=== PATIENT | female | born 1950 | race Caucasian/White ===

== ENCOUNTER 2024-02-26 11:46 | Inpatient (IN) ==
--- NOTE | 2024-02-26 12:03 | Emergency Department Note ---
Impression & Plan Acute UTI, Metabolic encephalopathy, Dehydration ED Provider Note NAME: TAMIKA CARRASCO AGE: 74 SEX: F : 1950 ARRIVES VIA: Ambulance INFORMANT: Patient ED PROVIDER(S): Gurwinder Hebert MD CHIEF COMPLAINT: Confusion, generalized weakness, referred. PLAN: Disposition: Admit MEDICAL DECISION MAKING: The patient is a pleasant 74-year-old woman with a past medical history who presents to the emergency department via EMS referred by her primary care doctor's office for evaluation of generalized weakness/malaise where they felt she was slow to answer questions and occurs in the setting of the patient presenting there today for an appointment to assess lower abdominal pain and burning with urination where she feels she may have a UTI. Patient does admit that she feels it is difficult for to process/think. Has any cough, congestion, chest pain, shortness of breath. On evaluation the patient is fatigued appearing but no distress, afebrile with blood pressure 190s/90s and vital signs otherwise stable. She appears clinically dry. She exhibits slow processing with no overt aphasia. She is alert and oriented to self, place and situation. She has no focal extremity weakness. EKG without overt acute ischemia. CXR negative for acute cardiopulmonary process per my personal preliminary review/interpretation. WBC, H/H and platelets within normal limits. Chemistry without metabolic acidosis. Creatinine 1.2 consistent with the patient's clinical dry appearance. Electrolytes LFTs are unremarkable. High-sensitivity troponin 7.1, within normal notes. Lipase is within normal limits. TSH within limits. UA with positive nitrites and 4+ bacteria consistent with UTI. COVID-19, influenza and RSV PCR's are negative. CT of the head and CTA of the head and neck were performed were negative for ICH, ischemia or severe narrowing occlusion of large vessels. Treatment for UTI initiated with ceftriaxone. Given the patient's change in mental status as well as ambulatory dysfunction per nursing went to the bathroom related to her UTI patient was referred to hospitalist service for further management. Case was discussed with Clover Gusman PAC with [facility] Cabrera hospitalist, who will evaluate the patient for admission. Further management per admitting team. Triage Nursing notes reviewed and agree them. Prior/external medical records reviewed Vital Signs: reviewed Differential diagnosis: Infection, dehydration, metabolic abnormality, hypo/hyperglycemia, electrolyte disturbance, anemia, hypoxia, cardiac sources, intracerebral event, toxicologic, neurologic, as well as other pathologies. ER treatment provided: See below. Diagnostics interpreted by me: Cardiac Monitoring: An order for continuous cardiac monitoring was placed and demonstrated normal sinus rhythm, 64 bpm, no ectopy. Laboratory studies: See below Imaging studies: See below Consultation(s): Case was discussed with lCover Gusman PAC with Dr. Jesus, [facility] hospitalist, who will evaluate the patient for admission. HPI: The patient is a pleasant 74-year-old woman with a past medical history who presents to the emergency department via EMS referred by her primary care doctor's office for evaluation of generalized weakness/malaise where they felt she was slow to answer questions and occurs in the setting of the patient presenting there today for an appointment to assess lower abdominal pain and burning with urination where she feels she may have a UTI. Patient does admit that she feels it is difficult for to process/think. Has any cough, congestion, chest pain, shortness of breath. ROS: See above HPI for pertinent positives & negatives. A total of 10 systems reviewed and were otherwise negative. VITALS:See Below PHYSICAL EXAMINATION: GENERAL: Awake, alert, fatigued-appearing, in no distress HENT: Normocephalic, atraumatic. Oropharynx with dry mucous membranes. EYES: Normal conjunctiva. Sclera non-icteric. EOMI. No nystamgus. PEARRL. NECK: Supple. No nuchal rigidity. FROM. No JVD. RESPIRATORY: Clear to auscultation. CARDIAC: Regular rate, normal rhythm. Extremities warm and well perfused. Pulses equal. ABDOMEN: Soft, non-distended. No tenderness to palpation. No rebound or guarding. No masses. MUSCULOSKELETAL: Chest examination reveals no tenderness. The back is symmetrical on inspection without obvious abnormality. There is no CVA tenderness to palpation. No joint edema. LOWER EXTREMITIES: Calves are equal size bilaterally and non-tender. No edema. No discoloration. NEURO: Exhibits slow processing with no overt aphasia. She is alert and oriented to self, place and situation. She has no focal extremity weakness. 5/5 strength and SILT x 4 extremities. Intact finger-nose. SKIN: No rash or jaundice noted. Gurwinder Hebert MD Past Med/Surg History Problem List (Updated 02/27/24 @ 00:04 by Gurwinder Hebert MD) Dehydration (Acute) Metabolic encephalopathy (Acute) Acute UTI (Acute) Medical History (Updated 02/27/24 @ 00:04 by Gurwinder Hebert MD) Tobacco abuse SAMREEN (generalized anxiety disorder) History of TIA (transient ischemic attack) Hx of renal cell cancer Peripheral polyneuropathy Osteoporosis GERD (gastroesophageal reflux disease) CKD (chronic kidney disease) stage 3, GFR 30-59 ml/min HTN (hypertension) Pre-diabetes COPD (chronic obstructive pulmonary disease) Surgical History (Updated 02/26/24 @ 16:29 by Clover Sadners PA-C) History of partial hysterectomy Hx of gastric bypass History of nephrectomy Right Family History (Updated 02/26/24 @ 16:29 by Clover Sanders PA-C) Other Cancer Stroke Social History Smoking Status: Current every day smoker Tobacco Type: Cigarettes Second Hand Exposure: No; Do You Dip or Chew Tobacco: No; Tobacco Cessation Education Requested by Patient: No Hx Alcohol Use: Yes Alcohol type: wine Hx Substance Use: No Preferred Language: Eritrean Communication Ability: Effective Contract Designer Required: No Beliefs That Will Affect Care: None Current Living Situation: Alone Other Information That Helps Us Care for You: No Feels Safe at Home: Yes Safety Concerns: Feels Safe At This Time Assistive Devices: Denture - Upper, Glasses and Walker Allergies Allergies Allergy/AdvReac Type Severity Reaction Status Date / Time lisinopril Allergy Severe Swelling Unverified 02/26/24 15:59 of Lip/Tongue/Throat naproxen [From Naprosyn] Allergy Severe Hives Unverified 02/26/24 15:59 Penicillins Allergy Severe Swelling Unverified 02/26/24 15:59 of Lip/Tongue/Throat Home Meds Home Medications Medication Instructions Recorded Confirmed albuterol sulfate 90 mcg/actuation 1 - 2 puff inhalation UD PRN 02/26/24 02/26/24 aerosol inhaler SOB/WHEEZING amlodipine 2.5 mg tablet 2.5 mg PO HS 02/26/24 02/26/24 atorvastatin 40 mg tablet 40 mg PO HS 02/26/24 02/26/24 cetirizine 10 mg tablet 10 mg PO QAM 02/26/24 02/26/24 duloxetine 60 mg capsule,delayed 60 mg PO QAM 02/26/24 02/26/24 release fluticasone propionate 50 1 spray intranasal DAILY PRN 02/26/24 02/26/24 mcg/actuation nasal Congestion spray,suspension hydrochlorothiazide 12.5 mg tablet 12.5 mg PO DAILY 02/26/24 02/26/24 hydroxyzine HCl 25 mg tablet 25 mg PO BID Unknown 02/26/24 02/26/24 methocarbamol 500 mg tablet 500 mg PO BID PRN Muscle Spasm 02/26/24 02/26/24 pantoprazole 40 mg tablet,delayed 40 mg PO DAILY 02/26/24 02/26/24 release plecanatide 3 mg tablet (Trulance) 3 mg PO BID 02/26/24 02/26/24 pregabalin 75 mg capsule 75 mg PO BID 02/26/24 02/26/24 trazodone 100 mg tablet 50 mg PO HS 02/26/24 02/26/24 umeclidinium 62.5 mcg-vilanterol 1 inh inhalation BID 02/26/24 02/26/24 25 mcg/actuation powdr for inhalation (Anoro Ellipta) zolpidem 5 mg tablet 5 mg PO HS PRN Sleep 02/26/24 02/26/24 Results & Data (ED) Vital Signs Vital Signs - 24 hr 02/26/24 11:55 02/26/24 11:56 02/26/24 12:10 Temperature 36.5 C 36.5 C Temperature Source Oral Oral Pulse Rate 59 L 60 Pulse Rate [Apical] 59 L Respiratory Rate 15 15 20 Respiratory Effort / Characteristics Non-Labored Spontaneous Non-Labored Spontaneous Respiratory Depth Normal Normal Blood Pressure 191/91 H Blood Pressure [Right Arm] 191/91 H Blood Pressure Mean 124 Blood Pressure Mean [Right Arm] 124 Blood Pressure Position Semi-fowlers Blood Pressure Position [Right Arm] Semi-fowlers Pulse Oximetry 96 96 98 Oxygen Delivery Method Room Air Room Air Room Air Sepsis Recent Fever Within 48 Hours No Sepsis New/Unexplained Change in Mental Status N/A Sepsis Action Taken by Nursing No Action Required 02/26/24 13:59 02/26/24 15:11 02/26/24 15:30 Temperature Temperature Source Pulse Rate 64 Pulse Rate [Apical] 61 61 Respiratory Rate 17 27 H Respiratory Effort / Characteristics Non-Labored Spontaneous Respiratory Depth Normal Blood Pressure Blood Pressure [Right Arm] 191/96 H 158/88 H Blood Pressure Mean Blood Pressure Mean [Right Arm] 127 111 Blood Pressure Position Blood Pressure Position [Right Arm] Semi-fowlers Pulse Oximetry 98 96 Oxygen Delivery Method Room Air Sepsis Recent Fever Within 48 Hours Sepsis New/Unexplained Change in Mental Status Sepsis Action Taken by Nursing Laboratory Data Attestation: I reviewed the patient's lab results. 02/26/24 12:05 02/26/24 12:05 Lab Results 02/26/24 02/26/24 Range/Units 12:05 13:57 WBC 8.81 (4.8-10.8) K/ul RBC 4.26 (4.20-5.40) M/uL Hgb 13.3 (12.0-16.0) g/dl Hct 39.5 (37.0-47.0) % MCV 92.7 (80.0-100.0) fL MCH 31.2 (25.0-34.0) pg MCHC 33.7 (32.0-36.0) g/dL RDW Std Deviation 46.4 H (36.4-46.3) fL RDW Coeff of Sarahy 13.6 (11.5-14.5) % Plt Count 177 (130-400) K/uL MPV 11.8 (9.4-12.4) fL Immature Gran % (Auto) 0.2 % Neut % (Auto) 77.4 % Lymph % (Auto) 14.1 % [place] % (Auto) 7.7 % Eos % (Auto) 0.3 % Baso % (Auto) 0.3 % Neut # (Auto) 6.81 H (1.40-6.50) K/uL Lymph # (Auto) 1.24 (1.20-3.40) K/uL [place] # (Auto) 0.68 H (0.11-0.59) K/uL Eos # (Auto) 0.03 (0.00-0.50) K/uL Baso # (Auto) 0.03 (0.00-0.20) K/uL Immature Gran # (Auto) 0.02 (0.01-0.20) K/uL Sodium 142 (136-145) mmol/L Potassium 3.7 (3.5-5.1) mmol/L Chloride 104 (98-107) mmol/L Carbon Dioxide 30 (21-32) mmol/L Anion Gap 8 (3-11) BUN 21 (6-23) mg/dl Creatinine 1.24 H (0.6-1.2) mg/dl Est Cr Clr Drug Dosing 36.3 ml/min eGFR 46.24 BUN/Creatinine Ratio 16.9 (10-20) Glucose 117 H (70-99(Fasting)) mg/dl Calcium 9.6 (8.6-10.3) mg/dl Phosphorus 3.4 (2.5-4.9) mg/dl Magnesium 2.3 (1.7-2.4) mg/dl Total Bilirubin 0.7 (0.2-1.0) mg/dl AST 27 (13-39) U/L ALT 18 (7-52) U/L Alkaline Phosphatase 82 (34-104) U/L Troponin I High Sens 7.1 (0-14) pg/ml Total Protein 7.3 (6.0-8.3) gm/dl Albumin 4.5 (3.4-5.0) gm/dl Globulin 2.8 (2.5-4.0) gm/dl Albumin/Globulin Ratio 1.6 (0.9-2) Lipase 19 (11-82) U/L TSH 2.874 (0.300-4.500) uIu/ml Urine Color Yellow Urine Appearance Clear (Clear) Urine pH 6.0 (4.5-7.5) Ur Specific [place] 1.010 (1.000-1.030) Urine Protein Negative (Negative) Urine Glucose (UA) Negative (Negative) Urine Ketones Negative (Negative) Urine Blood Negative (Negative) Urine Nitrite Positive A (Negative) Urine Bilirubin Negative (Negative) Urine Urobilinogen Negative (Negative) Ur Leukocyte Esterase Trace H (Negative) Urine WBC (Auto) 6-10 H (0-5) /hpf Urine RBC (Auto) 0-2 (0-2) /hpf U Hyaline Cast (Auto) 0-2 (0-2) /lpf U Epithel Cells (Auto) 0-2 (0-2) /hpf Urine Bacteria (Auto) 4+ H (None Seen) Administered Medications Amlodipine Besylate (Amlodipine Besylate 5 Mg Tab) 2.5 mg PO HS ARTI Stop: 03/27/24 20:59 Last Admin: 02/26/24 20:58 Dose: 2.5 mg Documented By: LRA Atorvastatin Calcium (Atorvastatin 40 Mg Tab) 40 mg PO HS ARTI Stop: 03/27/24 20:59 Last Admin: 02/26/24 20:58 Dose: 40 mg Documented By: LRA Heparin Sodium (Porcine) (Heparin Sod 5,000 Unit/0.5 Ml Vial) 5,000 units SQ Q8 ARTI Stop: 03/27/24 21:59 Last Admin: 02/26/24 21:02 Dose: 5,000 units Documented By: LRA Hydrochlorothiazide (Hydrochlorothiazide 25 Mg Tab) 12.5 mg PO DAILY ARTI Stop: 03/27/24 18:29 Last Admin: 02/26/24 20:58 Dose: 12.5 mg Documented By: LRA Hydroxyzine HCl (Hydroxyzine Hcl 25 Mg Tab) 25 mg PO BID ARTI Stop: 03/27/24 20:59 Last Admin: 02/26/24 20:58 Dose: 25 mg Documented By: ROHAN Miscellaneous (Plecanatide-Order Awaiting Action) 1 each N/A QS ARTI Stop: 03/28/24 00:00 Last Admin: 02/26/24 22:32 Dose: Not Given Documented By: LRA Pregabalin (Pregabalin 75 Mg Cap) 75 mg PO BID ARTI Stop: 03/27/24 20:59 Last Admin: 02/26/24 20:52 Dose: 75 mg Documented By: LRA Trazodone HCl (Trazodone Hcl 50 Mg Tab) 50 mg PO HS ARTI Stop: 03/27/24 20:59 Last Admin: 02/26/24 20:58 Dose: Not Given Documented By: LRA Umeclidinium/Vilanterol (Umeclidinium/Vilanterol 62.5/25mcg 7 Puffs/Inhaler) 1 puffs INH BID ARTI Stop: 03/27/24 20:59 Last Admin: 02/26/24 20:58 Dose: 1 puffs Documented By: LINDAA Zolpidem Tartrate (Zolpidem Tartrate 5 Mg Tab) 5 mg PO HS PRN PRN Reason: Sleep Stop: 03/27/24 17:59 Last Admin: 02/26/24 20:53 Dose: 5 mg Documented By: LRA Discontinued Medications Famotidine (Pepcid 20mg Iv Push) 20 mg in 5 mls @ 2.5 mls/min IV NOW STA Stop: 02/26/24 12:00 Last Admin: 02/26/24 12:19 Dose: 2.5 mls/min Documented By: PAMELA Sodium Chloride (Nss) 500 mls @ 999 mls/hr IV .Q31M ONE Stop: 02/26/24 12:29 Last Infusion: 02/26/24 13:35 Dose: Infused Documented By: Admin: 02/26/24 12:19 Dose: 999 mls/hr Documented By: PAMELA Ceftriaxone Sodium (Rocephin) 2,000 mg in 50 mls @ 100 mls/hr IV NOW STA Stop: 02/26/24 16:53 Last Infusion: 02/26/24 17:55 Dose: Infused Documented By: [facility] Admin: 02/26/24 17:25 Dose: 100 mls/hr Documented By: SCOTTY Ioversol (Optiray 320 125ml) 120 ml IV ONCE ONE Stop: 02/26/24 14:48 Last Admin: 02/26/24 14:48 Dose: 120 ml Documented By: LOIDA Ondansetron HCl (Ondansetron Inj 2 Mg/Ml 2 Ml Vial) 4 mg IV NOW STA Stop: 02/26/24 12:00 Last Admin: 02/26/24 12:19 Dose: 4 mg Documented By: PAMELA Imaging Data Radiologist's Impression: Chest X-Ray 02/26/24 11:59 XR chest 1V portable CLINICAL HISTORY: weakness COMPARISON STUDY: No previous studies for comparison. FINDINGS: Lung volumes are normal. Lungs are clear. There is no pneumothorax or pleural effusion. The heart is mildly enlarged. Mediastinal contours are normal. There is no evidence for pulmonary edema. IMPRESSION: No acute cardiopulmonary findings. ACT 112: Negative or not required by law. Electronically signed by: Rusty Dumas M.D. 02/26/2024 12:[address] 02/26/24 14:09 CT head/brain wo con CLINICAL HISTORY: 74 years-old Female with dizziness, confusion. Acute dizziness with altered mental status TECHNIQUE: Multiple axial CT images of the head were obtained without contrast. A dose lowering technique was utilized adhering to the principles of ALARA. COMPARISON: CTA head and neck of same day FINDINGS: No acute intracranial hemorrhage, midline shift, intracranial mass, hydrocephalus, territorial ischemia or abnormal extra-axial collection. Mild involutional changes with white matter hypodensities suggestive of chronic microvascular ischemic disease. The calvarium is intact. Paranasal sinuses are clear. Large mastoid effusions. IMPRESSION: No acute intracranial abnormality identified. ACT 112: Negative or not required by law. The above report was generated using voice recognition software. It may contain grammatical, syntax or spelling errors. Electronically signed by: Zach Winkler M.D. 02/26/2024 3:10 PM Head CTA 02/26/24 14:09 CT angio head w con CLINICAL HISTORY: dizziness, confusion TECHNIQUE: CT angiography of the head was performed following intravenous administration of iodinated contrast. Coronal and sagittal MIPS were obtained from the axial data set and were submitted for review. Automated dose lowering techniques and/or adjustment according to patient size were utilized for this examination. All measurements were calculated based on NASCET criteria. Comparison: None available at the time of this dictation. FINDINGS: CTA Head: The anterior and posterior cerebral circulations are patent. origin of the right posterior cerebral artery is seen. IMPRESSION: No occlusion, hemodynamically significant stenosis, aneurysm, dissection, or arteriovenous malformation in the major intracranial arteries. Assessment of stenosis of the internal carotid arteries is based on NASCET criteria. ACT 112: Negative or not required by law. Electronically signed by: Roman Farmer M.D. 02/26/2024 3:01 PM Neck CTA 02/26/24 14:09 CT ANGIOGRAPHY OF THE NECK WITH CONTRAST CLINICAL HISTORY: dizziness, confusion COMPARISON STUDY: No previous studies for comparison. Technique: CT angiography of the carotid and vertebral arteries was obtained using Optiray and 3D reconstruction on an independent workstation. NASCET criteria was utilized. Automated exposure control was utilized for the study. A dose lowering technique was utilized adhering to the principles of ALARA. CT DOSE: 919.97 mGy.cm Findings: Visualized portions of the lung apices are unremarkable. There are no cervical spine fractures progressive lymphadenopathy is present. There is mild plaque within bilateral carotid bifurcations without stenosis. There is no aneurysm or dissection within the neck. The bilateral vertebral arteries are patent. IMPRESSION: No stenosis or dissection within the bilateral common carotid, cervical internal carotid or vertebral arteries. ACT 112: Negative or not required by law. Electronically signed by: Rusty Dumas M.D. 02/26/2024 3:08 PM Discharge Plan Visit Data Chief Complaint: Illness Stated Complaint: LETHARGIC, ED Provider: Gurwinder Hebert Discharge Problem: Acute UTI, Metabolic encephalopathy, Dehydration Patient Disposition: Admitted As Inpatient Discharge Instructions Interventions: ED Discharge Assessment Last Done: 02/26/24 17:40
[2024-02-26] MEDS: ONDANSETRON INJ 2 MG/ML 2 ML VIAL IV STA (12:19)
[2024-02-26] MEDS: FAMOTIDINE 20MG IV PUSH 20 MG/5 ML SYR IV STA (12:19)
[2024-02-26] MEDS: SODIUM CHLORIDE 0.9% 500 ML IV ONE (12:19)
--- NOTE | 2024-02-26 12:46 | XRay Report ---
XR chest 1V portable CLINICAL HISTORY: weakness COMPARISON STUDY: No previous studies for comparison. FINDINGS: Lung volumes are normal. Lungs are clear. There is no pneumothorax or pleural effusion. The heart is mildly enlarged. Mediastinal contours are normal. There is no evidence for pulmonary edema. IMPRESSION: No acute cardiopulmonary findings. ACT 112: Negative or not required by law. Electronically signed by: Rusty Dumas M.D. 02/26/2024 12:44 PM
[2024-02-26 12:55] LABS: Basophils # (auto) 0.03 K/uL (0.00-0.20); Basophils % (auto) 0.3 %; Eosinophils # (auto) 0.03 K/uL (0.00-0.50); Eosinophils % (auto) 0.3 %; Hematocrit (blood only) 39.5 % (37.0-47.0); Hemoglobin 13.3 g/dl (12.0-16.0); Immature Granulocytes # (auto) 0.02 K/uL (0.01-0.20); Immature Granulocytes % (auto) 0.2 %; Lymphocytes # (auto) 1.24 K/uL (1.20-3.40); Lymphocytes % (auto) 14.1 %; Mean Corpuscular Hemoglobin 31.2 pg (25.0-34.0); Mean Corpuscular Hgb Conc 33.7 g/dL (32.0-36.0); Mean Corpuscular Volume 92.7 fL (80.0-100.0); Mean Platelet Volume 11.8 fL (9.4-12.4); Monocytes # (auto) 0.68 K/uL (0.11-0.59); Monocytes % (auto) 7.7 %; Neutrophils # (auto) 6.81 K/uL (1.40-6.50); Neutrophils % (auto) 77.4 %; Platelet Count 177 K/uL (130-400); RDW Coefficient of Variation 13.6 % (11.5-14.5); RDW Standard Deviation 46.4 fL (36.4-46.3); Red Blood Count 4.26 M/uL (4.20-5.40); White Blood Count 8.81 K/ul (4.8-10.8)
[2024-02-26 13:03] LABS: Albumin Globulin Ratio 1.6 (0.9-2); Albumin Level 4.5 gm/dl (3.4-5.0); BUN Creatinine Ratio 16.9 (10-20); Bilirubin,Total 0.7 mg/dl (0.2-1.0); Calcium 9.6 mg/dl (8.6-10.3); Creatinine Clr Calc Pharmacy 36.3 ml/min; Globulin 2.8 gm/dl (2.5-4.0); Magnesium 2.3 mg/dl (1.7-2.4); Phosphorus 3.4 mg/dl (2.5-4.9); Potassium 3.7 mmol/L (3.5-5.1); Total Protein 7.3 gm/dl (6.0-8.3)
[2024-02-26 13:08] LABS: Troponin I High Sensitivity 7.1 pg/ml (0-14)
[2024-02-26 13:17] LABS: Thyroid Stimulating Hormone 2.874 uIu/ml (0.300-4.500)
[2024-02-26 14:33] LABS: Appearance Urine Clear (Clear); Bacteria Urine Automated 4+ (None Seen); Bilirubin Urine Negative (Negative); Blood Urine Negative (Negative); Cast Urine Automated 0-2 /lpf (0-2); Color Urine Yellow; Epithelial Cell Urine Auto 0-2 /hpf (0-2); Glucose Urine UA Negative (Negative); Ketones Urine Negative (Negative); Leukocyte Esterase Urine Trace (Negative); Nitrite Urine Positive (Negative); Protein Urine Negative (Negative); RBC Urine Automated 0-2 /hpf (0-2); Urobilinogen Urine Negative (Negative)
[2024-02-26] MEDS: OPTIRAY 320 125ml IV ONE (14:48)
--- NOTE | 2024-02-26 15:02 | CT Scan Report ---
CT angio head w con CLINICAL HISTORY: dizziness, confusion TECHNIQUE: CT angiography of the head was performed following intravenous administration of iodinate d contrast. Coronal and sagittal MIPS were obtained from the axial data set and were submitted for re view. Automated dose lowering techniques and/or adjustment according to patient size were utilized f or this examination. All measurements were calculated based on NASCET criteria. Comparison: None available at the time of this dictation. FINDINGS: CTA Head: The anterior and posterior cerebral circulations are patent. origin of the right pos terior cerebral artery is seen. IMPRESSION: No occlusion, hemodynamically significant stenosis, aneurysm, dissection, or arteriovenous malformati on in the major intracranial arteries. Assessment of stenosis of the internal carotid arteries is based on NASCET criteria. ACT 112: Negative or not required by law. Electronically signed by: Roman Farmer M.D. 02/26/2024 3:01 PM
--- NOTE | 2024-02-26 15:10 | CT Scan Report ---
CT ANGIOGRAPHY OF THE NECK WITH CONTRAST CLINICAL HISTORY: dizziness, confusion COMPARISON STUDY: No previous studies for comparison. Technique: CT angiography of the carotid and vertebral arteries was obtained using Optiray and 3D rec onstruction on an independent workstation. NASCET criteria was utilized. Automated exposure control was utilized for the study. A dose lowering technique was utilized adhering to the principles of ALA RA. CT DOSE: 919.97 mGy.cm Findings: Visualized portions of the lung apices are unremarkable. There are no cervical spine fractu res progressive lymphadenopathy is present. There is mild plaque within bilateral carotid bifurcation s without stenosis. There is no aneurysm or dissection within the neck. The bilateral vertebral arter ies are patent. IMPRESSION: No stenosis or dissection within the bilateral common carotid, cervical internal carotid or vertebral arteries. ACT 112: Negative or not required by law. Electronically signed by: Rusty Dumas M.D. 02/26/2024 3:08 PM
--- NOTE | 2024-02-26 15:12 | CT Scan Report ---
CT head/brain wo con CLINICAL HISTORY: 74 years-old Female with dizziness, confusion. Acute dizziness with altered mental status TECHNIQUE: Multiple axial CT images of the head were obtained without contrast. A dose lowering tech nique was utilized adhering to the principles of ALARA. COMPARISON: CTA head and neck of same day FINDINGS: No acute intracranial hemorrhage, midline shift, intracranial mass, hydrocephalus, territorial ischem ia or abnormal extra-axial collection. Mild involutional changes with white matter hypodensities sugg estive of chronic microvascular ischemic disease. The calvarium is intact. Paranasal sinuses are clear. Large mastoid effusions. IMPRESSION: No acute intracranial abnormality identified. ACT 112: Negative or not required by law. The above report was generated using voice recognition software. It may contain grammatical, syntax o r spelling errors. Electronically signed by: Zach Winkler M.D. 02/26/2024 3:10 PM
--- NOTE | 2024-02-26 16:33 | History & Physical Report ---
Date of Service February 26, 2024 Assessment & Plan (1) Acute UTI: (2) Metabolic encephalopathy: (3) HTN (hypertension): (4) CKD (chronic kidney disease) stage 3, GFR 30-59 ml/min: (5) Pre-diabetes: (6) COPD (chronic obstructive pulmonary disease): (7) Tobacco abuse: Plan This is a 74-year-old female who has a significant past medical history of HTN, COPD, prediabetes, GERD, CKD stage III, peripheral polyneuropathy, history of nephrectomy 2/2 history of renal cell cancer, history of TIA, Chronic constipation and SAMREEN who presents to ED secondary to feeling unwell x 1 day. Acute UTI Metabolic Encephalopathy admit to med/surg IV rocephin, await blood and urine culture pt with systemic sx of feeling feverish, dysuria, nausea, abnormal UA with mental "fogginess," and intermittent confusion PT/OT, pt livse alone COPD Tobacco abuse encourage cessation pt declines nicotine patch continue home inhalers, prn neb, ISP CKD-3 - chronic, stable, renal fxn at baseline HTN: bp elevated in ED, pt did not take home meds today, continue amlodipine and hctz, consider up titrating amlodipine Hx of renal cell ca s/p R nephrectomy GERD: continue PPI IBS: intermittent constipation/diarrhea PreDM: a1c 5.9 in November, encourage lifestyle measures Alcohol use: pt reports drinking 1 glass of wine nightly, no hx of withdrawal when not using, monitor DVT ppx: SQ Heparin DNR/DNI PCP: Janelle Pimentel Dispo: admit to med/surg, PT/OT, pt lives alone Pt was seen and examined in collaboration with Dr. Jesus, please see addendum I spent a total of 45 minutes minutes reviewing notes, outpatient records, labs, medication, coordinating, documenting and providing care for this patient excluding time spent in the performance of separately billed services. History of Present Illness Chief Complaint: lethargy, disorientation, feeling unwell x 1 day. Primary Care Provider: Janelle Pimentel MD This is a 74-year-old female who has a significant past medical history of HTN, COPD, prediabetes, GERD, CKD stage III, peripheral polyneuropathy, history of nephrectomy 2/2 history of renal cell cancer, history of TIA, Chronic constipation and SAMREEN who presents to ED secondary to feeling unwell x 1 day. She was seen and evaluated in PCP office today complaining of dizziness, fatigue, nausea and generally feeling unwell. Per PCP note patient appeared disoriented and lethargic and recommended that she be transported via ambulance to ED for further evaluation. Patient states she was at a picnic on Saturday. She fell ill yesterday. She felt feverish, lightheaded, nausea, poor appetite and dysuria. She also felt, "foggy." She lives alone and occasionally walks with cane. She still drives. She did not take her temperature but was sweating. She denies chills, syncope, chest pain, vomiting, hematuria, melena or hematochezia. She has chronic SOB and cough 2/2 to COPD. She feels this is unchanged. She is unable to vomit due to prior hx of gastric bypass. She had 1 episode of diarrhea yesterday, but she has IBS and fluctuates between diarrhea and constipation. In ED pts urine looked concerning for UTI. Her renal fxn is at baseline. She does not meet SIRS/Sepsis Criteria. She was started on IV rocephin. Allergies Allergy/AdvReac Type Severity Reaction Status Date / Time lisinopril Allergy Severe Swelling Unverified 02/26/24 15:59 of Lip/Tongue/Throat naproxen [From Naprosyn] Allergy Severe Hives Unverified 02/26/24 15:59 Penicillins Allergy Severe Swelling Unverified 02/26/24 15:59 of Lip/Tongue/Throat Home Medications Medication Instructions Recorded Confirmed Type albuterol sulfate 90 mcg/actuation 1 - 2 puff inhalation UD PRN 02/26/24 02/26/24 History aerosol inhaler SOB/WHEEZING amlodipine 2.5 mg tablet 2.5 mg PO HS 02/26/24 02/26/24 History atorvastatin 40 mg tablet 40 mg PO HS 02/26/24 02/26/24 History cetirizine 10 mg tablet 10 mg PO QAM 02/26/24 02/26/24 History duloxetine 60 mg capsule,delayed 60 mg PO QAM 02/26/24 02/26/24 History release fluticasone propionate 50 1 spray intranasal DAILY PRN 02/26/24 02/26/24 History mcg/actuation nasal Congestion spray,suspension hydrochlorothiazide 12.5 mg tablet 12.5 mg PO DAILY 02/26/24 02/26/24 History hydroxyzine HCl 25 mg tablet 25 mg PO BID Unknown 02/26/24 02/26/24 History methocarbamol 500 mg tablet 500 mg PO BID PRN Muscle Spasm 02/26/24 02/26/24 History pantoprazole 40 mg tablet,delayed 40 mg PO DAILY 02/26/24 02/26/24 History release plecanatide 3 mg tablet (Trulance) 3 mg PO BID 02/26/24 02/26/24 History pregabalin 75 mg capsule 75 mg PO BID 02/26/24 02/26/24 History trazodone 100 mg tablet 50 mg PO HS 02/26/24 02/26/24 History umeclidinium 62.5 mcg-vilanterol 1 inh inhalation BID 02/26/24 02/26/24 History 25 mcg/actuation powdr for inhalation (Anoro Ellipta) zolpidem 5 mg tablet 5 mg PO HS PRN Sleep 02/26/24 02/26/24 History Past Med/Surg History Problem List (Updated 02/26/24 @ 17:16 by Clover Sanders PA-C) Metabolic encephalopathy Acute UTI Medical History (Updated 02/26/24 @ 17:16 by Clover Sanders PA-C) Tobacco abuse SAMREEN (generalized anxiety disorder) History of TIA (transient ischemic attack) Hx of renal cell cancer Peripheral polyneuropathy Osteoporosis GERD (gastroesophageal reflux disease) CKD (chronic kidney disease) stage 3, GFR 30-59 ml/min HTN (hypertension) Pre-diabetes COPD (chronic obstructive pulmonary disease) Surgical History (Updated 02/26/24 @ 16:29 by Clover Sanders PA-C) History of partial hysterectomy Hx of gastric bypass History of nephrectomy Right Family History (Updated 02/26/24 @ 16:29 by Clover Sanders PA-C) Other Cancer Stroke Social History Smoking Status: Current every day smoker Tobacco Type: Cigarettes Second Hand Exposure: No; Do You Dip or Chew Tobacco: No; Tobacco Cessation Education Requested by Patient: No Hx Alcohol Use: Yes Alcohol type: wine Hx Substance Use: No Preferred Language: [place] Communication Ability: Effective Relief Manager Required: No Beliefs That Will Affect Care: None Current Living Situation: Alone Other Information That Helps Us Care for You: No Feels Safe at Home: Yes Safety Concerns: Feels Safe At This Time Assistive Devices: Denture - Upper, Glasses and Walker Review of Systems Review of Systems: All systems reviewed & are unremarkable except as noted in HPI & below Physical Exam Physical Exam: Constitutional: WD/WN, elderly, F, vitals as above, NAD, sitting up in bed, pleasant, conversing easily Head: Normocephalic, Atraumatic Eyes: PERRL, conjunctivae normal, anicteric sclerae ENMT: external ear and nose normal, oropharynx normal edentulous Neck: trachea midline, no thyromegaly normal visual inspection Respiratory: normal respiratory effort, lungs clear to auscultation, no wheeze, rales, rhonchi. Normal insp/exp effort, no accessory muscle use Cardiovascular: RRR, no murmur, no edema Vessels: no JVD or carotid bruit Chest: normal inspection of chest Abdomen: normal bowel sounds, soft, nontender, no hepatosplenomegaly Musculoskeletal: no cyanosis or clubbing, AROM x 4 Skin: no rashes, warm and dry normal turgor Neurologic: PERRL, EOMI, accommodation nl, no face palsy, no dysarthria CN's II-XI intact bilaterally and moves all extremities Psychiatric: A+Ox3 to basics, euthymic affect Lymphatic: no cervical or axillary lymphadenopathy : deferred Results & Data Results & Data Vital Signs (Past 12 Hours) Vital Signs Temp Pulse Pulse Resp BP BP Pulse Ox 02/26/24 15:30 61 27 H 158/88 H 96 02/26/24 15:11 64 02/26/24 13:59 61 17 191/96 H 98 02/26/24 12:10 60 20 98 02/26/24 11:56 36.5 C 59 L 15 191/91 H 96 02/26/24 11:55 36.5 C 59 L 15 191/91 H 96 O2 Del Method 02/26/24 15:30 Room Air 02/26/24 15:11 02/26/24 13:59 02/26/24 12:10 Room Air 02/26/24 11:56 Room Air 02/26/24 11:55 Room Air Laboratory Results I have independently reviewed and interpreted patient's admitting labs including CBC, CMP, trop, lipase, tsh, UA Diagnostic Findings Chest X-Ray 02/26/24 11:59 XR chest 1V portable CLINICAL HISTORY: weakness COMPARISON STUDY: No previous studies for comparison. FINDINGS: Lung volumes are normal. Lungs are clear. There is no pneumothorax or pleural effusion. The heart is mildly enlarged. Mediastinal contours are normal. There is no evidence for pulmonary edema. IMPRESSION: No acute cardiopulmonary findings. ACT 112: Negative or not required by law. Electronically signed by: Rusty Dumas M.D. 02/26/2024 12:[address] 02/26/24 14:09 CT head/brain wo con CLINICAL HISTORY: 74 years-old Female with dizziness, confusion. Acute dizziness with altered mental status TECHNIQUE: Multiple axial CT images of the head were obtained without contrast. A dose lowering technique was utilized adhering to the principles of ALARA. COMPARISON: CTA head and neck of same day FINDINGS: No acute intracranial hemorrhage, midline shift, intracranial mass, hydrocephalus, territorial ischemia or abnormal extra-axial collection. Mild involutional changes with white matter hypodensities suggestive of chronic microvascular ischemic disease. The calvarium is intact. Paranasal sinuses are clear. Large mastoid effusions. IMPRESSION: No acute intracranial abnormality identified. ACT 112: Negative or not required by law. The above report was generated using voice recognition software. It may contain grammatical, syntax or spelling errors. Electronically signed by: Zach Winkler M.D. 02/26/2024 3:10 PM Head CTA 02/26/24 14:09 CT angio head w con CLINICAL HISTORY: dizziness, confusion TECHNIQUE: CT angiography of the head was performed following intravenous administration of iodinated contrast. Coronal and sagittal MIPS were obtained from the axial data set and were submitted for review. Automated dose lowering techniques and/or adjustment according to patient size were utilized for this examination. All measurements were calculated based on NASCET criteria. Comparison: None available at the time of this dictation. FINDINGS: CTA Head: The anterior and posterior cerebral circulations are patent. origin of the right posterior cerebral artery is seen. IMPRESSION: No occlusion, hemodynamically significant stenosis, aneurysm, dissection, or arteriovenous malformation in the major intracranial arteries. Assessment of stenosis of the internal carotid arteries is based on NASCET criteria. ACT 112: Negative or not required by law. Electronically signed by: Roman Farmer M.D. 02/26/2024 3:01 PM Neck CTA 02/26/24 14:09 CT ANGIOGRAPHY OF THE NECK WITH CONTRAST CLINICAL HISTORY: dizziness, confusion COMPARISON STUDY: No previous studies for comparison. Technique: CT angiography of the carotid and vertebral arteries was obtained using Optiray and 3D reconstruction on an independent workstation. NASCET criteria was utilized. Automated exposure control was utilized for the study. A dose lowering technique was utilized adhering to the principles of ALARA. CT DOSE: 919.97 mGy.cm Findings: Visualized portions of the lung apices are unremarkable. There are no cervical spine fractures progressive lymphadenopathy is present. There is mild plaque within bilateral carotid bifurcations without stenosis. There is no aneurysm or dissection within the neck. The bilateral vertebral arteries are patent. IMPRESSION: No stenosis or dissection within the bilateral common carotid, cervical internal carotid or vertebral arteries. ACT 112: Negative or not required by law. Electronically signed by: Rusty Dumas M.D. 02/26/2024 3:08 PM Medications Administered Medication List Discontinued Medications Famotidine (Pepcid 20mg Iv Push) 20 mg in 5 mls @ 2.5 mls/min IV NOW STA Stop: 02/26/24 12:00 Last Admin: 02/26/24 12:19 Dose: 2.5 mls/min Documented By: PAMELA Sodium Chloride (Nss) 500 mls @ 999 mls/hr IV .Q31M ONE Stop: 02/26/24 12:29 Last Infusion: 02/26/24 13:35 Dose: Infused Documented By: Admin: 02/26/24 12:19 Dose: 999 mls/hr Documented By: PAMELA Ioversol (Optiray 320 125ml) 120 ml IV ONCE ONE Stop: 02/26/24 14:48 Last Admin: 02/26/24 14:48 Dose: 120 ml Documented By: LOIDA Ondansetron HCl (Ondansetron Inj 2 Mg/Ml 2 Ml Vial) 4 mg IV NOW STA Stop: 02/26/24 12:00 Last Admin: 02/26/24 12:19 Dose: 4 mg Documented By: PAMELA COVID-19 Results Results COVID-19 Adm Lab Results: RBC 4.26 M/uL (4.20-5.40) 02/26/24 WBC 8.81 K/ul (4.8-10.8) 02/26/24 Hgb 13.3 g/dl (12.0-16.0) 02/26/24 Hct 39.5 % (37.0-47.0) 02/26/24 Plt Count 177 K/uL (130-400) 02/26/24 Neutrophils (%) (Auto) 77.4 % 02/26/24 Lymphocytes (%) (Auto) 14.1 % 02/26/24 Monocytes # (Auto) 0.68 K/uL (0.11-0.59) H 02/26/24 Eosinophils # (Auto) 0.03 K/uL (0.00-0.50) 02/26/24 Immature Granulocyte % (Auto) 0.2 % 02/26/24 Neutrophils # (Auto) 6.81 K/uL (1.40-6.50) H 02/26/24 Lymphocytes # (Auto) 1.24 K/uL (1.20-3.40) 02/26/24 Monocytes # (Auto) 0.68 K/uL (0.11-0.59) H 02/26/24 Eosinophils # (Auto) 0.03 K/uL (0.00-0.50) 02/26/24 Basophils # (Auto) 0.03 K/uL (0.00-0.20) 02/26/24 Immature Granulocyte # (Auto) 0.02 K/uL (0.01-0.20) 4 Na 142 mmol/L (136-145) 02/26/24 K 3.7 mmol/L (3.5-5.1) 02/26/24 Cl 104 mmol/L (98-107) 02/26/24 CO2 30 mmol/L (21-32) 02/26/24 Anion Gap 8 (3-11) 02/26/24 BUN 21 mg/dl (6-23) 02/26/24 Creatinine 1.24 mg/dl (0.6-1.2) H 02/26/24 BUN/Creatinine Ratio 16.9 (10-20) 02/26/24 Glucose Level 117 mg/dl (70-99(Fasting)) H 02/26/24 Ca 9.6 mg/dl (8.6-10.3) 02/26/24 Phosphorus Level 3.4 mg/dl (2.5-4.9) 02/26/24 Total Bilirubin 0.7 mg/dl (0.2-1.0) 02/26/24 AST/SGOT 27 U/L (13-39) 02/26/24 ALT/SGPT 18 U/L (7-52) 02/26/24 Alkaline Phosphatase 82 U/L (34-104) 02/26/24 Total Protein 7.3 gm/dl (6.0-8.3) 02/26/24 Albumin 4.5 gm/dl (3.4-5.0) 02/26/24 Globulin 2.8 gm/dl (2.5-4.0) 02/26/24 Albumin/Globulin Ratio 1.6 (0.9-2) 02/26/24 Chest X-Ray 02/26/24 Code Status & VTE Plan Code Status DNR/DNI Supervising Physician Co-Signing Physician Notes 74-year-old lady with PMH of HTN, COPD, prediabetes, GERD, CKD stage III, peripheral polyneuropathy, nephrectomy secondary to history of renal cell cancer, TIA, chronic constipation and SAMREEN presented to the ED secondary to not feeling well for few days ROLL TENDER. Patient is lethargic but oriented timesx 4 at bedside exam. Patient reports having generalized weakness, nausea, poor appetite, lower abdominal pain, dysuria symptoms since last few days ROLL TENDER. Labs reviewed, minimal dehydration noted with mild elevation in creatinine. UA suggestive of UTI. Patient is a status post IV fluid in the ED and Rocephin in the ED. Acute UTI: Continue with Rocephin, follow admitting blood and urine culture. Hypertensive urgency: Likely secondary to acute illness, improved at bedside exam. Concern for mild dehydration: Status post IV fluid in the ED, encourage p.o. intake, labs in AM. On exam: GENERAL: lethargic and oriented x3. NAD, on RA. Appears ill/frail/weak. HEENT: No pallor, no icterus. Pupils equal, round and reactive to light. Oral mucosa dry. NECK: No JVD, no neck masses. HEART: S1 and S2 heard. Regular rate and rhythm. No murmur, no gallop. RESPIRATORY SYSTEM: Normal AP diameter. No accessory muscle use. No wheezing, no crackles. ABDOMEN: Soft, bowel sounds present, minimal tender lower belly, no distention. CENTRAL NERVOUS SYSTEM: No facial droop. Speech is clear. Obeys simple co mmands. Moves extremities. EXTREMITIES: No edema, no erythema seen. I have seen and examined the patient and have discussed the case with the provider above. I agree with the assessment and plan as stated. Time spent: 25 min.
[2024-02-26] MEDS: cefTRIAXone SODIUM 2,000 MG/50 ML BAG IV STA (17:25)
[2024-02-26] MEDS ORDERED: ALBUT/IPRATROP 3MG/0.5MG NEB 3 ML VIAL NEB PRN (18:00)
[2024-02-26] MEDS ORDERED: FAMOTIDINE 20 MG TAB PO PRN (18:00)
[2024-02-26] MEDS ORDERED: POLYETHYLENE (MIRALAX) 17 GM PACK PO PRN (18:00)
[2024-02-26] MEDS ORDERED: ACETAMINOPHEN 325 MG TAB PO PRN (18:00)
[2024-02-26] MEDS ORDERED: ALUMINUM/MAGNESIUM SUSP 30 ML UDC PO PRN (18:00)
[2024-02-26] MEDS: PREGABALIN 75 MG CAP PO SCH (20:52)
[2024-02-26] MEDS: ZOLPIDEM TARTRATE 5 MG TAB PO PRN (20:53)
[2024-02-26] MEDS: UMECLIDINIUM/VILANTEROL 62.5/25MCG 7 PUFFS/INHALER INH SCH (20:58)
[2024-02-26] MEDS: hydrOXYzine HCl 25 MG TAB PO SCH (20:58)
[2024-02-26] MEDS: ATORVASTATIN 40 MG TAB PO SCH (20:58)
[2024-02-26] MEDS: hydroCHLOROthiazide 25 MG TAB PO SCH (20:58)
[2024-02-26] MEDS: amLODIPine BESYLATE 5 MG TAB PO SCH (20:58)
[2024-02-26] MEDS: traZODone HCL 50 MG TAB PO SCH (20:58)
[2024-02-26] MEDS ORDERED: MELATONIN 3 MG TAB PO PRN (21:00)
[2024-02-26] MEDS: HEPARIN SOD 5,000 UNIT/0.5 ML VIAL SQ SCH (21:02)
[2024-02-26 23:13] LABS: Influenza A virus by PCR Negative (Neg); Influenza B virus by PCR Negative (Neg); RSV by PCR Negative (Neg); SARS CoV2 RNA(COVID-19) Ceph NEGATIVE (Negative)
[2024-02-27 07:03] LABS: Hematocrit (blood only) 34.8 % (37.0-47.0); Hemoglobin 11.6 g/dl (12.0-16.0); Mean Corpuscular Hemoglobin 31.3 pg (25.0-34.0); Mean Corpuscular Hgb Conc 33.3 g/dL (32.0-36.0); Mean Corpuscular Volume 93.8 fL (80.0-100.0); Platelet Count 152 K/uL (130-400); RDW Coefficient of Variation 13.6 % (11.5-14.5); RDW Standard Deviation 46.5 fL (36.4-46.3); Red Blood Count 3.71 M/uL (4.20-5.40); White Blood Count 6.87 K/ul (4.8-10.8)
[2024-02-27 07:21] LABS: BUN Creatinine Ratio 16.8 (10-20); Calcium 8.9 mg/dl (8.6-10.3); Creatinine Clr Calc Pharmacy 35.6 ml/min; Potassium 3.4 mmol/L (3.5-5.1)
[2024-02-27] MEDS: ADVANCED PROBIOTIC 625 MG CAPSULE PO SCH (07:56)
[2024-02-27] MEDS: DULoxetine HCL 60 MG CAP PO SCH (07:56)
[2024-02-27] MEDS: CETIRIZINE HCL 10 MG TABLET PO SCH (07:56)
[2024-02-27] MEDS: PANTOprazole 40 MG TAB PO SCH (07:57)
--- NOTE | 2024-02-27 08:50 | Electrocardiogram Report ---
Test Reason : Blood Pressure : */* mmHG Vent. Rate : 57 BPM Atrial Rate : 57 BPM P-R Int : 154 ms QRS Dur : 76 ms QT Int : 438 ms P-R-T Axes : 40 27 53 degrees QTcB Int : 426 ms Sinus bradycardia Otherwise normal ECG No previous ECGs available Confirmed by Kenji Aguilar ([id number]) on 02/27/2024 8:50:28 AM Referred By: REFERRED SELF Confirmed By: Kenji Aguilar
[2024-02-27] MEDS: cefTRIAXone SODIUM 2,000 MG/50 ML BAG IV SCH (12:24)
[2024-02-27] MEDS: ONDANSETRON INJ 2 MG/ML 2 ML VIAL IV PRN (12:24)
--- OUTSIDE RECORDS SUMMARY | 2024-02-27 13:29 | External Medical Summary | Summary of Care ---
Author Name Unknown Organization [facility] Address [address] [place] [address] Phone [phone] Care Team Providers Care Operating Room Scheduler Name Role Phone Janelle Pimentel MD Primary Care Provider [phone] Reason for Visit * Reason Onset Date Comments Medication Refill 02/20/2024 Encounter Details Date Type Department Care Team (Late st Contact Info) Description 02/20/2024 Refill [facility] [address] [place] [address] Janelle Pimentel MD [address] [place] [address] Allergies Active Allergy Reactions Criticality Noted Date Comments Aspirin Medium 11/09/2015 Other reaction(s): GI Intolerance, Other, Other Other reaction(s): GI Intolerance Pt not allowed to take since gastric bypass Pt not allowed to take since gastric bypass Pt not allowed to take since gastric bypass Pt not allowed to take since gastric bypass Influenza Virus Vac Live Quad Edema Other,Rash Medium 02/19/2022 Lisinopril Itching High 05/10/2021 Other reaction(s): Shortness of breath, Swelling Naproxen Anaphylaxis High 11/09/2015 Penicillins Other (Please comment) Medium 08/22/2020 Other reaction(s): Other, Other (See Comments) Mouth sores Mouth sores Mouth sores Mouth sores Bupropion Neuro complications (Please comment) Medium 02/19/2022 documented as of this encounter (statuses as of 02/24/2024) Medications Medication Sig Dispensed Refills Start Date End Date Status Vitamin C 500 MG Oral Tablet (Ascorbic Acid) Take 1 Tablet by mouth. Active Vitamin E 450 MG (1000 UT) Oral Capsule Take 1 Capsule by mouth. Active D3-1000 25 MCG (1000 UT) Oral Capsule (Cholecalciferol) Take 1 Capsule by mouth in the morning. Active Elderberry 500 MG Oral Capsule Take 1 Capsule by mouth in the morning. Active Docusate Sodium 100 MG Oral Tablet Take 1 Tablet by mouth daily as needed. Active One-Daily Multi Vitamins Oral Tablet Take 1 Tablet by mouth in the morning. Active Echinacea 400 MG Oral Capsule Take 1 Capsule by mouth in the morning. Active Calcium Carb-Cholecalcifero l 600-20 MG-MCG Oral Tablet Take by mouth. Active NATURAL SUPPLEMENT Take 2 Capsules by mouth in the morning and 2 Capsules before bedtime. Wellness Formula. Active Albuterol Sulfate HFA 108 (90 Base) MCG/ACT Inhalation Aerosol Solution Inhale 2 Puffs by mouth every 6 hours as needed (SOB). 54 g 1 02/19/2024 Active amLODIPine Besylate 2.5 MG Oral Tablet (Norvasc) Take 1 Tablet by mouth every night at bedtime. 100 Tablet 3 02/19/2024 Active Anoro Ellipta 62.5-25 MCG/ACT Inhalation Aerosol Powder Breath Activated (umeclidinium-vilan terol)Indications:C OPD, mild (HCC) INHALE 1 INHALATION BY MOUTH IN THE MORNING 180 Each 3 02/19/2024 Active Atorvastatin Calcium 40 MG Oral Tablet (Lipitor)Indication s:History of TIA (transient ischemic attack),Hyperlipide josep, unspecified hyperlipidemia type TAKE 1 TABLET BY MOUTH IN THE MORNING 100 Tablet 3 02/19/2024 Active Cetirizine HCl 10 MG Oral Tablet (ZyrTEC) Take 1 Tablet by mouth in the morning. 90 Tablet 3 02/19/2024 Active DULoxetine HCl 60 MG Oral Capsule Delayed Release Particles (Cymbalta) Take 1 Capsule by mouth in the morning. Do not cut, crush or chew. 90 Capsule 3 02/19/2024 Active Fluticasone Propionate 50 MCG/ACT Nasal Suspension (Flonase) Administer 2 Sprays into nostril in the morning. 48 mL 2 02/19/2024 Active hydroCHLOROthiazide 12.5 MG Oral TabletIndications:H TN, goal below 140/90 Take 1 Tablet by mouth in the morning. 90 Tablet 3 02/19/2024 Active hydrOXYzine HCl 25 MG Oral Tablet TAKE 1 TABLET BY MOUTH 3 TIMES DAILY - IN THE MORNING, AT NOON, AND BEFORE BEDTIME 300 Tablet 1 02/19/2024 Active Nicotine 14 MG/24HR Transdermal Patch 24 Hour (Nicoderm CQ) Place 1 Patch over 24 hours topically on the skin in the morning. On upper body/outer arm, change once a day for two weeks.. 28 Patch 5 02/20/2024 Active traZODone HCl 100 MG Oral Tablet (Desyrel) Take 0.5 Tablets by mouth at bedtime. 45 Tablet 2 02/19/2024 Active Trulance 3 MG Oral Tablet (Plecanatide) TAKE 1 TABLET BY MOUTH IN THE MORNING 100 Tablet 3 02/19/2024 Active Pantoprazole Sodium 40 MG Oral Tablet Delayed Release (Protonix) Take 1 Tablet by mouth in the morning. TAKE 1 TABLET BY MOUTH IN THE MORNING 1/2 HOUR BEFORE THE FIRST MEAL OF THE DAY. DO NOT CRUSH, SPLIT OR CHEW THE TABLET. 90 Tablet 3 02/19/2024 Active Methocarbamol 500 MG Oral Tablet (Robamol) TAKE ONE TABLET BY MOUTH EVERY MORNING AND ONE TABLET BEFORE BEDTIME 180 Tablet 2 02/21/2024 Active Zolpidem Tartrate 5 MG Oral Tablet (Ambien) Take 1 Tablet by mouth at bedtime as needed for Sleep. 30 Tablet 3 02/24/2024 Active Baclofen 20 MG Oral Tablet Take 1 Tablet by mouth in the morning and 1 Tablet before bedtime. 60 Tablet 3 02/21/2024 Active Zolpidem Tartrate 5 MG Oral Tablet (Ambien) Take 1 Tablet by mouth at bedtime as needed for Sleep. 30 Tablet 3 11/25/2023 4 Discontinue d(Refill) documented as of this encounter (statuses as of 02/24/2024) Active Problems Problem Noted Date Diagnosed Date Prediabetes 12/23/2023 Overview: Per Prediabetes protocol Insomnia 08/05/2023 Constipation 08/05/2023 Osteoporosis 12/24/2022 SAMREEN (generalized anxiety disorder) 12/24/2022 Sacroiliitis, not elsewhere classified 08/14/202 3 COPD, group A, by GOLD 2017 classification 09/17 Overview: Per COPD GOLD Classification Food insecurity 06/25/2022 Overview: Per [facility] Protocol Stage 3b chronic kidney disease 05/22/2022 Gastroesophageal reflux disease without esophagi tis 02/19/2022 HTN, goal below 130/80 02/19/2022 Cervical spinal stenosis 02/19/2022 DDD (degenerative disc disease), lumbar 02/20/20 22 Family history of premature CAD 02/19/2022 S/p nephrectomy 02/19/2022 Gait difficulty 02/19/2022 Tremor 02/19/2022 History of TIA (transient ischemic attack) 02/19 Hoarseness of voice 02/19/2022 History of renal cell cancer 02/19/2022 Peripheral polyneuropathy 02/19/2022 documented as of this encounter (statuses as of 02/24/2024) Resolved Problems Problem Noted Date Diagnosed Date Resolved Date COPD, mild 05/22/2022 09/19/2022 Overview: Per COPD GOLD Classification Hyperlipidemia 02/19/2022 05/22/2022 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 02/19/2022 05/22/2022 documented as of this encounter (statuses as of 02/24/2024) Immunizations Name Administration Dates Next Due Pneumococcal Conjugate Vacc, 13 Valent (Prevnar) 09/24/2018 Pneumococcal Polysaccharide PPV23 (Pneumovax) documented as of this encounter Social History Tobacco Use Types Packs/Day Years Used Date Smoking Tobacco: Former Cigarettes Q uit: 10/01/2023 Passive Smoke Exposure: Past Smokeless Tobacco: Never Alcohol Use Standard Drinks/Week Comments Yes 0 (1 standard drink = 0.6 oz pur e alcohol) every night PHQ-2 Answer Date Recorded PHQ Adult Total Score 0 11/25/2023 Hunger Vital Sign Answer Date Recorded Within the past 12 months, y ou worried that your food would run out before you got the money to buy more. Sometimes true Within the past 12 months, t he food you bought just didn't last and you didn't have money to get more. Sometimes true Childcare Answer Date Recorded Do you feel overwhelmed with taking care of a child, family member or friend? No 06/27/2023 Does your family need help f inding childcare? (Household - for ages 0-17 years) Not on file 06/27/2023 Clothing Answer Date Recorded Have you been unable to get clothing when it was really needed? No 06/27/2023 Is your family able to get c lothes or diapers when needed? (Household - for ages 0-17 years) Not on file 06/27/2023 Personal Safety Answer Date Recorded Do you feel unsafe or have concerns for your saf ety? No 06/27/2023 Do you have concerns for you r family's safety? (Household - for ages 0-17 years) Not on file 06/27/2023 Utilities Answer Date Recorded Do you have trouble paying y our heating, water, or electric bill? Yes 06/27/2023 Is your family able to pay t he heat, water, or electric bill? (Household - for ages 0-17 years) Not on file 06/27/2023 Does your family have access to good internet? (Household - for ages 0-17 years) Not on file 06/27/2023 Employment Status Answer Date Recorded Are you unemployed or without regular income? No 06/27/2023 Does the household have a re lar source of income? (Household - for ages 0-17 years) Not on file 06/27/2023 Social Connections Answer Date Recorded How often do you feel lonely or isolated from th ose around you? Never 06/27/2023 Financial Resource Strain Answer Date R ecorded Do you have any trouble payi ng for your medications, or do you think you might in the future? No 06/27/2023 Does your family have troubl e paying for medicine? (Household - for ages 0-17 years) Not on file 06/27/2023 Transportation Needs Answer Date Record ed READ ONLY Do you have troubl e getting a ride to medical visits or work? Never True 06/27/2023 Does your family have a hard time getting a ride to doctors visits? (Household - for ages 0-17 years) Not on file 06/27/2023 Has lack of transportation k ept you from medical appointments, meetings, work, or from getting things needed for daily living? Check all that apply. (Adult - for ages 18 years and over) Not on file 06/27/2023 Do you (or your family) have trouble finding or paying for a ride (transportation)? (Household - for ages 0-17 years) Not on file 06/27/2023 Housing Stability Answer Date Recorded Do you currently live in a s helter or have no steady place to sleep at night? No 06/27/2023 READ ONLY Do you think you a re at risk of becoming homeless? No 06/27/2023 Does your family worry about paying for your home or becoming homeless? (Household - for ages 0-17 years) Not on file 0 06/27/2023 Are you homeless or worried that you might be in the future? (Adult - for ages 18 years and over) Not on file Are you (or your family) bee eless or worried that you might be in the future? (Household - for ages 0-17 years) Not on file Food Insecurity Answer Date Recorded Do you need food for this week? No 06/27/2023 Are you able to get enough f ood for your family? (Household - for ages 0-17 years) Not on file 06/27/2023 Does your family need food t his week? (Household - for ages 0-17 years) Not on file 06/27/2023 Do you always have enough fo od for your family? (Household - for ages 0-17 years) Not on file 06/27/2023 Sex and Gender Information Value Date Recorded Sex Assigned at Female 05/20/2022 5:33 PM EST Gender Identity Female 05/20/2022 5:33 PM EST Sexual Orientation Straight 05/20/2022 5: 33 PM EST Job Start Date Occupation Industry Not on file Not on file Not on file documented as of this encounter Miscellaneous Notes * Telephone Encounter - Janelle Pimentel MD - 02/24/2024 8:14 AM EDTSigned Prescriptions: Disp Refills Zolpidem Tartrate 5 MG Oral Tablet (Ambien)30 Tab*3 Sig: Take 1 Tablet by mouth at bedtime as needed for Sleep. Authorizing Provider: JANELLE PIMENTEL * Telephone Encounter - Jessica Daley [facility] - 02/21/2024 10:02 PM EDT Pending Prescriptions: Disp Refills Zolpidem Tartrate 5 MG Oral Tablet (Ambien)30 Tab*3 Sig: Take 1 Tablet by mouth at bedtime as needed for Sleep. * Telephone Encounter - Jessica Daley [facility] - 02/21/2024 10:01 PM EDT I have reviewed the patients controlled substance dispensing history in the Prescription Drug Monitoring Program in compliance with the [facility] regulations before prescribing a controlled substance. PDMP checked on 02/21/2024. Pending Prescriptions: Disp Refills Zolpidem Tartrate 5 MG Oral Tablet (Ambie*30 Tab*3 Sig: Take 1 Tablet by mouth at bedtime as needed for Sleep. Last Visit: 11/25/2023 (in office), Visit date not found (telemedicine) Next Visit: 05/28/2024 Date medication was last filled: 01/28 Date medication is due for refill: 02/25 Pharmacy: [id number] Is this request for a controlled substance? Yes and Urine Drug Screen Not completed Toxicology results: No results found for this or any previous visit. Please approve if appropriate. Thanks, Jessica Daley, PharmD Clinical Pharmacist [facility] ([facility]) [phone] 02/21/2024,10:01 PM documented in this encounter Plan of Treatment Upcoming Encounters Date Type Department Care Team (Late st Contact Info) Description 05/28/2024 10:20 AM EST Office Visit [facility] [address] [place] [id number] Janelle Pimentel MD [address] [place] [address] 07/20/2024 11:30 AM EDT Imaging Radiology [facility] [address] [facility] [place] [address] 09/08/2024 1:30 PM EDT Office Visit [facility] [address] [facility] [address] Marissa Farris PA-C [address] [facility] [place] [address] Scheduled Procedures Name Priority Associated Diagnoses Date/Ti me COLONOSCOPY FLEXIBLE PROXIMAL DIAGNOSTIC Recall History of colon polyps Health Maintenance Due Date Last Done Comments Alpha-1 Antitrypsin 01/30/1970 Hepatitis C Screening 01/30/1970 Cologuard 01/30/1997 Fecal Occult Blood Test 01/30/1997 Sigmoidoscopy 01/30/1997 *BISPHONATE OR OTHER ACCEPTABLE MEDICATION NEEDED FOR OSTEOPOROSIS (REFER TO SMARTSET #1146) 05/24/2023 Influenza Vaccine (FLU shot) (#1) 2024 GFR 04/09/2024 10/08/2023, 07/12, 06/24/2023, Additional history exists Mammogram 05/17/2024 05/17/2023, 04/13, 05/08/2022, Additional history exists DXA Scan 06/05/2024 06/05/2022, 06/05/2022 CKD HGB USE SMARTSET 01798 06/24/202406/24, 06/24/2023, 06/12/2022, Additional history exists Adult Wellness Visit 07/05/2024 07/05/2023, 10/16/19 23 CKD PHOS USE SMARTSET 81670 10/07/2024 10/08/2023, 0 02/08/2023 Albumin/Creatinine Ratio 11/24/2024 024, 10/08/2023, 02/08/2023, Additional history exists Depression Screening 11/24/2024 11/25/2023 HbA1c 11/24/2024 11/25/2023 O2 ASSESSMENT COMPLETED IN PAST YEAR FOR COPD 11/24/2024 11/25/2023 Colonoscopy 05/25/2027 05/25/2022, 05/13, 05/24/2022, Additional history exists Colorectal Cancer Screening 05/25/2027 Lipid Panel 10/07/2028 10/08/2023, 05/15, 04/19/2021, Additional history exists Pneumococcal Vaccine: 65+ Years Completed 09/24/2018, 03/07/2017 VITAMIN D LEVEL ONCE IN A LIFETIME-USE SMARTSET# [id number] Completed 02/23/2022 RETIRED - COLONOSCOPY-EVERY 5 YRS AGES 18-100 Discontinued 05/25/2022, 05/25/2022, 05/24/2022, Additional history exists COVID-19 Vaccine Discontinued DTap/Tdap Vaccines Discontinued HPV (Gardasil) Vaccine Aged Out No lo nger eligible based on patient's age to complete this topic Hepatitis B Vaccine Aged Out No longe r eligible based on patient's age to complete this topic MENINGOCOCCAL (MENACTRA/MENVEO) Aged Out No longer eligible based on patient's age to complete this topic Zoster Vaccines Discontinued documented as of this encounter Medical Devices Not on filedocumented as of this encounter Care Teams Operating Room Scheduler Relationship Specialty Start Date End Date Janelle Pimentel MD [address] [place] [address] PCP - General Internal Medicine 02/19/22 documented as of this encounter
--- OUTSIDE RECORDS SUMMARY | 2024-02-27 13:29 | External Medical Summary | Summary of Care ---
Author Name Unknown Organization [facility] Address [address] [place] [address] Phone [phone] Care Team Providers Care Forensic Ballistics Expert Name Role Phone Janelle Pimentel MD Primary Care Provider [phone] Reason for Visit * Reason Onset Date Comments Medication Refill 02/20/2024 Encounter Details Date Type Department Care Team (Late st Contact Info) Description 02/20/2024 Refill [facility] [address] [place] [address] Janelle Pimentel MD [address] [place] [address] Allergies Active Allergy Reactions Criticality [...] as of this encounter (statuses as of 02/21/2024) Medications Medication Sig Dispensed Refills Start Date [...] 2 Capsules before bedtime. Wellness Formula. Active Zolpidem Tartrate 5 MG Oral Tablet (Ambien) Take 1 Tablet by mouth at bedtime as needed for Sleep. 30 Tablet 3 11/25/2023 Active Albuterol Sulfate HFA 108 (90 Base) [...] BEFORE BEDTIME 180 Tablet 2 02/21/2024 Active Methocarbamol 500 MG Oral Tablet (Robamol) TAKE ONE TABLET BY MOUTH EVERY MORNING AND ONE TABLET BEFORE BEDTIME 180 Tablet 2 11/25/2023 4 Discontinue d(Refill) documented as of this encounter (statuses as of 02/21/2024) Active Problems Problem Noted Date Diagnosed Date Prediabetes 12/23/2023 Overview: Per Prediabetes protocol Insomnia 08/05/2023 Constipation 08/05/2023 Osteoporosis 12/24/2022 SAMREEN (generalized anxiety disorder) 12/24/2022 Sacroiliitis, not elsewhere classified 3 COPD, group A, by GOLD 2017 classification 09/17 Overview: Per COPD GOLD Classification Food insecurity 06/25/2022 Overview: Per [facility] Protocol Stage 3b chronic kidney disease 05/22/2022 Gastroesophageal reflux disease without esophagi tis 02/19/2022 HTN, goal below 130/80 02/19/2022 Cervical spinal stenosis 02/19/2022 DDD (degenerative disc disease), lumbar 02/20/20 Family history of premature CAD 02/19/2022 S/p nephrectomy 02/19/2022 Gait difficulty 02/19/2022 Tremor 02/19/2022 History of TIA (transient ischemic attack) 02/19 Hoarseness of voice 02/19/2022 History of renal cell cancer 02/19/2022 Peripheral polyneuropathy 02/19/2022 documented as of this encounter (statuses as of 02/21/2024) Resolved Problems Problem Noted Date Diagnosed Date Resolved Date COPD, mild 05/22/2022 09/19/2022 Overview: Per COPD GOLD Classification Hyperlipidemia 02/19/2022 05/22/2022 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 02/19/2022 05/22/2022 documented as of this encounter (statuses as of 02/21/2024) Immunizations Name Administration Dates Next Due Pneumococcal [...] Telephone Encounter - Janelle Pimentel MD - 02/21/2024 11:44 AM EDTSigned Prescriptions: Disp Refills Methocarbamol 500 MG Oral Tablet (Robamol) 180 Ta*2 Sig: TAKE ONE TABLET BY MOUTH EVERY MORNING AND ONE TABLET BEFORE BEDTIME Authorizing Provider: JANELLE PIMENTEL * Telephone Encounter - Miranda Tolbert LPN - 02/21/2024 8:34 AM EDTPending Prescriptions: Disp Refills Methocarbamol 500 MG Oral Tablet (Robamol) 180 Ta*2 Sig: TAKE ONE TABLET BY MOUTH EVERY MORNING AND ONE TABLET BEFORE BEDTIME * Telephone Encounter - Miranda Tolbert LPN - 02/21/2024 8:34 AM EDT Did you pend patient's preferred pharmacy and medication before forwarding?yes [id number] Pending Prescriptions: Disp Refills Methocarbamol 500 MG Oral Tablet (Robamol)180 Ta*2 Sig: TAKE ONE TABLET BY MOUTH EVERY MORNING AND ONE TABLET BEFORE BEDTIME Last Visit: 11/25/2023 (in office), Visit date not found (telemedicine) Next Visit: 05/28/2024 If no future appointments scheduled, and last appointment is greater than a year ago, please schedule patient for a follow-up appointment Last date the medication was ordered: 11/25/23 Is this request for a controlled substance? Urine Drug Screen:No results found for this or any previous visit. Patient Phone Numbers Labs: Lab Results Component Value Date/Time CREAT 1.2 (H) 10/08/2023 11:54 AM POTASSIUM 3.9 10/08/2023 11:54 AM TSH 2.02 06/16/2019 12:00 AM LDL 33 10/08/2023 11:54 AM LDLCALC 57 04/19/2021 12:00 AM LDLCALC 33 09/12/2017 07:14 AM ALT 32 06/24/2023 09:44 AM HGBA1C 5.9 (H) 11/25/2023 10:47 AM * Telephone Encounter - Renuka Arshad - 02/20/2024 7:55 PM EDTPending Prescriptions: Disp Refills Methocarbamol 500 MG Oral Tablet (Robamol) 180 Ta*2 Sig: TAKE ONE TABLET BY MOUTH EVERY MORNING AND ONE TABLET BEFORE BEDTIME documented in this encounter Plan of Treatment Upcoming Encounters Date Type Department Care Team (Late st Contact Info) Description 05/28/2024 10:20 AM EST Office Visit [facility] [address] [place] [address] Janelle Pimentel MD [address] [place] [address] 07/20/2024 11:30 AM EDT Imaging Radiology [facility] [address] [facility] [place] [address] 09/08/2024 1:30 PM EDT Office Visit [facility] [address] [facility] [address] Marissa Farris PA-C [address] [place] [address] Scheduled Procedures Name Priority Associated Diagnoses Date/Ti [...] 06/05/2024 06/05/2022, 06/05/2022 CKD HGB USE SMARTSET [id number] 06/24/202406/24, 06/24/2023, 06/12/2022, Additional history exists Adult Wellness Visit 07/05/2024 07/05/2023, 10/16/19 CKD PHOS USE SMARTSET [id number] 10/07/2024 10/08/2023, 0 02/08/2023 Albumin/Creatinine Ratio 11/24/2024 [...] D LEVEL ONCE IN A LIFETIME-USE SMARTSET# [id number] Completed 02/23/2022 RETIRED - COLONOSCOPY-EVERY 5 YRS [...] filedocumented as of this encounter Care Teams Forensic Ballistics Expert Relationship Specialty Start Date End Date Janelle Pimentel MD [address] [place] [address] PCP - General Internal Medicine 02/19/22 documented as of this encounter
--- OUTSIDE RECORDS SUMMARY | 2024-02-27 13:29 | External Medical Summary | Summary of Care ---
Author Name Unknown Organization [facility] Address [address] [place] [address] Phone [phone] Care Team Providers Care Paint Sprayer Sandblaster Name Role Phone Janelle Pimentel MD Primary Care Provider [phone] Reason for Visit * Reason Comments Acute Patient reports she has felt dizzy since yesterday. Patient seems very fatigued. Patient denies any other symptoms. Encounter Details Date Type Department Care Team (Late st Contact Info) Description 02/26/2024 10:40 AM EDT Office Visit General Internal Medicine [facility] [place] [address] [place] [address] Shaylee Preston PA-C [address] [facility] [place] [address] Dizziness*; Lethargic; Somnolence; Nausea Allergies Active Allergy Reactions Criticality Noted Date [...] as of this encounter (statuses as of 02/26/2024) Medications Medication Sig Dispensed Refills Start Date [...] BEFORE BEDTIME 300 Tablet 1 02/19/2024 Active traZODone HCl 100 MG Oral Tablet [...] before bedtime. 60 Tablet 3 02/21/2024 Active Nicotine 14 MG/24HR Transdermal Patch 24 Hour (Nicoderm CQ) Place 1 Patch over 24 hours topically on the skin in the morning. On upper body/outer arm, change once a day for two weeks.. 28 Patch 5 02/20/2024 4 Discontinue d(Medicatio n List Clean Up) documented as of this encounter (statuses as of 02/26/2024) Active Problems Problem Noted Date Diagnosed Date Prediabetes 12/23/2023 Overview: Per Prediabetes protocol Insomnia 08/05/2023 Constipation 08/05/2023 Osteoporosis 12/24/2022 SAMREEN (generalized anxiety disorder) 12/24/2022 Sacroiliitis, not elsewhere classified COPD, group A, by GOLD 2017 classification [...] as of this encounter (statuses as of 02/26/2024) Resolved Problems Problem Noted Date Diagnosed Date Resolved Date COPD, mild 05/22/2022 09/19/2022 Overview: Per COPD GOLD Classification Hyperlipidemia 02/19/2022 05/22/2022 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 02/19/2022 05/22/2022 documented as of this encounter (statuses as of 02/26/2024) Immunizations Name Administration Dates Next Due Pneumococcal [...] on file documented as of this encounter Last Filed Vital Signs Vital Sign Reading Time Taken Comments Blood Pressure 128/82 02/26/2024 10:45 AM EDT Pulse 74 02/26/2024 10:45 AM EDT Temperature 35.2 C (95.4 F) 02/26/2024 10:45 AM E DT Respiratory Rate - - Oxygen Saturation 95% 02/26/2024 10:45 AM EDT Inhaled Oxygen Concentration - - Weight 63.8 kg (140 lb 9.6 oz) 02/26/2024 10:45 AM EDT Height - - Body Mass Index 26.79 03/25/2023 12:40 PM EST documented in this encounter Progress Notes * Shaylee Preston PA-C - 02/26/2024 10:57 AM EDT Images from the original note were not included. History of Present Illness Enma Goff is a 74 year old female that presents for Acute (Patient reports she has felt dizzy since yesterday. Patient seems very fatigued. Patient denies any other symptoms. ) Pt presented today for an acute visit with c/o dizziness and fatigue. Asked pt to describe dizziness, and states she just feels "sick". Describes nausea, but no vomiting. Pt denies DOBSON. States symptoms began yesterday--asked pt if she woke up with the symptoms or what she was doing when symptoms began and she is unable to answer. Asked pt is she has been eating or drinking and she says yes, but is unable to tell me what she ate or drank. Pt lives alone and drove herself to the office today. Review of Systems: See HPI for pertinent positives. All other review of systems is negative. Physical Exam Vitals: 02/26/24 1045 Temp: 35.2 C (95.4 F) Pulse: 74 SpO2: 95% BP: 128/82 Physical Exam Constitutional: Appearance: She is ill-appearing. HENT: Right Ear: Tympanic membrane, ear canal and external ear normal. Left Ear: Tympanic membrane, ear canal and external ear normal. Mouth/Throat: Mouth: Mucous membranes are moist. Eyes: Pupils: Pupils are equal, round, and reactive to light. Cardiovascular: Rate and Rhythm: Normal rate and regular rhythm. Pulmonary: Effort: Pulmonary effort is normal. Breath sounds: Normal breath sounds. Musculoskeletal: Cervical back: Normal range of motion and neck supple. Comments: Pt sitting in wheelchair with her head in her hands with her eyes closed through the majority of the visit. Unable to get onto exam table. Neurological: Mental Status: She is lethargic and disoriented. Comments: Pt able to tell me her name. After asking multiple times [facility] Unable to tell me what day it is. I have reviewed the following results: Assessment and Plan Dizziness Due to pt's disorientation, dizziness, and lethargy I am recommending she be transported to the ER via ambulance for eval and treatment. Pt is not safe to drive or take care of herself currently. Sheis agreeable with this. Call placed to 911 for ambulance and transport. Lethargic See above. Somnolence See above. Nausea See above. Wrap-Up Follow Up: Return if symptoms worsen or fail to improve. Time: I spent a total of 20-29 minutes (exact time 24 mins) on the date of service in preparation, delivery, and documentation of the care provided to Enma Goff excluding any time spent in the performance of separately billed services. documented in this encounter Nursing Notes * Rola Horton MED ASSIST - 02/26/2024 11:11 AM EDT Ambulance was called for patient per provider instruction. Patient is very lethargic, unable to answer questions. Patient drove herself to her appt but provider feels that it would be unsafe for her to drive herself back home. Feels ER evaluation is best option. * Rola Horton MED ASSIST - 02/26/2024 10:48 AM EDT Chief Complaint Patient presents with Acute Patient reports she has felt dizzy since yesterday. Patient seems very fatigued. Patient denies anyother symptoms. documented in this encounter Plan of Treatment Upcoming Encounters Date Type Department Care Team (Late st Contact Info) Description 05/28/2024 10:20 AM EST Office Visit [place] [address] [facility] [place] [address] Janelle Pimentel MD [address] [place] [facility] [place] [address] 07/20/2024 11:30 AM EDT Imaging Radiology [facility] [address] [place] [address] 09/08/2024 1:30 PM EDT Office Visit Neurology [facility] [address] [place] [address] Marissa Farris PA-C [address] [facility] [place] [address] Scheduled Procedures Name Priority Associated Diagnoses Date/Ti [...] 06/05/2024 06/05/2022, 06/05/2022 CKD HGB USE SMARTSET 76079 06/24/202406/24, 06/24/2023, 06/12/2022, Additional history exists CKD PHOS USE SMARTSET 62544 10/07/2024 10/08/2023, 0 02/08/2023 Albumin/Creatinine Ratio 11/24/2024 024, 10/08/2023, 02/08/2023, Additional history exists Depression Screening 11/24/2024 11/25/2023 HbA1c 11/24/2024 11/25/2023 O2 ASSESSMENT COMPLETED IN PAST YEAR FOR COPD 02/25/2025 02/26/2024 Colonoscopy 05/25/2027 05/25/2022, 05/13, 05/24/2022, Additional history exists Colorectal Cancer Screening 05/25/2027 Lipid Panel 10/07/2028 10/08/2023, 05/15, 04/19/2021, Additional history exists Pneumococcal Vaccine: 65+ Years Completed 09/24/2018, 03/07/2017 VITAMIN D LEVEL ONCE IN A LIFETIME-USE SMARTSET# 58699 Completed 02/23/2022 RETIRED - COLONOSCOPY-EVERY 5 YRS [...] Not on filedocumented as of this encounter Visit Diagnoses Diagnosis Dizziness- Primary Dizziness and giddiness Lethargic Other malaise and fatigue Somnolence Other alteration of consciousness Nausea Nausea alone documented in this encounter Care Teams Paint Sprayer Sandblaster Relationship Specialty Start Date End Date Janelle Pimentel MD [address] [place] [address] PCP - General Internal Medicine 02/19/22 documented as of this encounter
--- OUTSIDE RECORDS SUMMARY | 2024-02-27 13:29 | External Medical Summary | Summary of Care ---
Author Name Unknown Organization [facility] Address [address] [place] [address] Phone [phone] Care Team Providers Care Print And Pattern Designer Name Role Phone Janelle Pimentel MD Primary Care Provider [phone] Reason for Visit * Reason Comments Acute Patient reports she has felt dizzy since yesterday. Patient seems very fatigued. Patient denies any other symptoms. Encounter Details Date Type Department Care Team (Late st Contact Info) Description 02/26/2024 10:40 AM EDT Office Visit General Internal Medicine [facility] [place] [address] [facility] [place] [address] Shaylee Preston PA-C [address] [facility] [place] [address] Dizziness*; Lethargic; Somnolence; Nausea Allergies Active Allergy [...] Description 05/28/2024 10:20 AM EST Office Visit [place] [address] [facility] [place] [address] Janelle Pimentel MD [address] [place] [facility] [place] [address] 07/20/2024 11:30 AM EDT Imaging Radiology [facility] [address] [place] [address] 09/08/2024 1:30 PM EDT Office Visit Neurology [facility] [address] [place] [address] Marissa Farris PA-C [address] [facility] [place] [address] Scheduled Procedures Name Priority Associated Diagnoses Date/Ti [...] 06/05/2024 06/05/2022, 06/05/2022 CKD HGB USE SMARTSET 91494 06/24/202406/24, 06/24/2023, 06/12/2022, Additional history exists CKD PHOS USE SMARTSET 76859 10/07/2024 10/08/2023, 0 02/08/2023 Albumin/Creatinine Ratio 11/24/2024 [...] D LEVEL ONCE IN A LIFETIME-USE SMARTSET# 22343 Completed 02/23/2022 RETIRED - COLONOSCOPY-EVERY 5 YRS [...] alone documented in this encounter Care Teams Print And Pattern Designer Relationship Specialty Start Date End Date Janelle Pimentel MD [address] [place] [address] PCP - General Internal Medicine 02/19/22 documented as of this encounter
--- OUTSIDE RECORDS SUMMARY | 2024-02-27 13:29 | External Medical Summary | Summary of Care ---
Author Name Unknown Organization [facility] Address [address] [place] [address] Phone [phone] Care Team Providers Care Head Of Design Name Role Phone Janelle Pimentel MD Primary Care Provider [phone] Reason for Visit * Reason Onset Date Comments Medication Refill 02/24/2024 Encounter Details Date Type Department Care Team (Late st Contact Info) Description 02/24/2024 Refill [facility] [address] [place] [address] Janelle Pimentel MD [address] [place] [address] Allergies Active Allergy Reactions Criticality [...] by mouth in the morning. Active Calcium Carb-Cholecalciferol 600-20 MG-MCG Oral Tablet Take by mouth. [...] 62.5-25 MCG/ACT Inhalation Aerosol Powder Breath Activated (umeclidinium-vilante rol)Indications:COPD, mild (HCC) INHALE 1 INHALATION BY MOUTH IN THE MORNING 180 Each 3 02/19/2024 Active Atorvastatin Calcium 40 MG Oral Tablet (Lipitor)Indications: History of TIA (transient ischemic attack),Hyperlipidemi a, unspecified hyperlipidemia type TAKE 1 TABLET BY [...] 2 02/19/2024 Active hydroCHLOROthiazide 12.5 MG Oral TabletIndications:HTN , goal below 140/90 Take 1 Tablet by [...] before bedtime. 60 Tablet 3 02/21/2024 Active documented as of this encounter (statuses as [...] No 06/27/2023 Does the household have a [facility] source of income? (Household - for ages [...] encounter Miscellaneous Notes * Telephone Encounter - Tatyana Man [facility] - 02/26/2024 6:35 AM EDT Refused Prescriptions: Disp Refills Zolpidem Tartrate 5 MG Oral Tablet (Ambien)30 Tab*3 Sig: Take 1Tablet by mouth at bedtime as needed for Sleep.Refused By: TATYANA MAN for Refusal: Duplicate Request documented in this encounter Plan of Treatment Upcoming Encounters Date Type Department Care Team (Late st Contact Info) Description 05/28/2024 10:20 AM EST Office Visit [facility] [address] [facility] [phone] Janelle Pimentel MD [address] [place] [facility] [place] [address] 07/20/2024 11:30 AM EDT Imaging Radiology [facility] [address] [facility] [place] [address] 09/08/2024 1:30 PM EDT Office Visit [facility] [address] [facility] [address] Marissa Farris PA-C [facility] [place] [address] Scheduled Procedures Name Priority Associated Diagnoses Date/Ti [...] 06/05/2024 06/05/2022, 06/05/2022 CKD HGB USE SMARTSET 02967 06/24/202406/24, 06/24/2023, 06/12/2022, Additional history exists Adult Wellness Visit 07/05/2024 07/05/2023, 10/16/19 CKD PHOS USE SMARTSET 68502 10/07/2024 10/08/2023, 0 02/08/2023 Albumin/Creatinine Ratio 11/24/2024 [...] D LEVEL ONCE IN A LIFETIME-USE SMARTSET# 68514 Completed 02/23/2022 RETIRED - COLONOSCOPY-EVERY 5 YRS [...] filedocumented as of this encounter Care Teams Head Of Design Relationship Specialty Start Date End Date Janelle Pimentel MD [address] [facility] [place] [id number] PCP - General Internal Medicine 02/19/22 documented as of this encounter
--- OUTSIDE RECORDS SUMMARY | 2024-02-27 13:30 | External Medical Summary | Summary of Care ---
Author Name Unknown Organization [facility] Address [address] [place] [address] Phone [phone] Care Team Providers Care Director Electrical Engineering Name Role Phone Janelle Pimentel MD Primary Care Provider [phone] Encounter Details Date Type Department Care Team (Late st Contact Info) Description 01/20/2024 Telephone [facility] [address] [place] [address] Janelle Pimentel MD [address] [place] [address] Allergies Active Allergy Reactions Criticality [...] as of this encounter (statuses as of 01/20/2024) Medications Medication Sig Dispensed Refills Start Date [...] 2 Capsules before bedtime. Wellness Formula. Active traZODone HCl 100 MG Oral Tablet (Desyrel) Take 0.5 Tablets by mouth at bedtime. 90 Tablet 2 02/19/2023 Active ProAir HFA 108 (90 Base) MCG/ACT Inhalation Aerosol Solution Inhale 2 Puffs by mouth every 6 hours as needed for Wheezing. 54 g 3 08/05/2023 Active Fluticasone Propionate 50 MCG/ACT Nasal Suspension (Flonase) Administer 2 Sprays into nostril in the morning. 48 mL 2 11/18/2023 Active amLODIPine Besylate 2.5 MG Oral Tablet (Norvasc) Take 1 Tablet by mouth every night at bedtime. 100 Tablet 3 11/25/2023 Active Cetirizine HCl 10 MG Oral Tablet (ZyrTEC) Take 1 Tablet by mouth in the morning. 90 Tablet 3 11/25/2023 Active hydrOXYzine HCl 25 MG Oral Tablet TAKE 1 TABLET BY MOUTH 3 TIMES DAILY - IN THE MORNING, AT NOON, AND BEFORE BEDTIME 300 Tablet 1 11/25/2023 Active Methocarbamol 500 MG Oral Tablet (Robamol) TAKE ONE TABLET BY MOUTH EVERY MORNING AND ONE TABLET BEFORE BEDTIME 180 Tablet 2 11/25/2023 Active Pantoprazole Sodium 40 MG Oral Tablet Delayed Release (Protonix) Take 1 Tablet by mouth in the morning. TAKE 1 TABLET BY MOUTH IN THE MORNING 1/2 HOUR BEFORE THE FIRST MEAL OF THE DAY. DO NOT CRUSH, SPLIT OR CHEW THE TABLET Strength: 40 mg. 90 Tablet 3 11/25/2023 Active Zolpidem Tartrate 5 MG Oral Tablet (Ambien) Take 1 Tablet by mouth at bedtime as needed for Sleep. 30 Tablet 3 11/25/2023 Active hydroCHLOROthiazide 12.5 MG Oral TabletIndications:HTN , goal below 140/90 Take 1 Tablet by mouth in the morning. 90 Tablet 3 11/25/2023 Active Albuterol Sulfate HFA 108 (90 Base) MCG/ACT Inhalation Aerosol Solution Inhale 2 Puffs by mouth every 6 hours as needed (SOB). 18 g 5 11/25/2023 Active Atorvastatin Calcium 40 MG Oral Tablet (Lipitor)Indications: History of TIA (transient ischemic attack),Hyperlipidemi a, unspecified hyperlipidemia type TAKE 1 TABLET BY MOUTH IN THE MORNING 100 Tablet 3 11/25/2023 Active Nicotine 14 MG/24HR Transdermal Patch 24 Hour (Nicoderm CQ) Place 1 Patch over 24 hours topically on the skin in the morning. On upper body/outer arm, change once a day for two weeks.. 28 Patch 5 11/25/2023 Active Trulance 3 MG Oral Tablet (Plecanatide) TAKE 1 TABLET BY MOUTH IN THE MORNING 100 Tablet 3 12/26/2023 Active Anoro Ellipta 62.5-25 MCG/ACT Inhalation Aerosol Powder Breath Activated (umeclidinium-vilante rol)Indications:COPD, mild (HCC) INHALE 1 INHALATION BY MOUTH IN THE MORNING 180 Each 3 12/24/2023 Active DULoxetine HCl 60 MG Oral Capsule Delayed Release Particles (Cymbalta) Take 1 Capsule by mouth in the morning. Do not cut, crush or chew. 90 Capsule 3 12/24/2023 Active documented as of this encounter (statuses as of 01/20/2024) Active Problems Problem Noted Date Diagnosed Date [...] as of this encounter (statuses as of 01/20/2024) Resolved Problems Problem Noted Date Diagnosed Date Resolved Date COPD, mild 05/22/2022 09/19/2022 Overview: Per COPD GOLD Classification Hyperlipidemia 02/19/2022 05/22/2022 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 02/19/2022 05/22/2022 documented as of this encounter (statuses as of 01/20/2024) Immunizations Name Administration Dates Next Due Pneumococcal [...] No 06/27/2023 Does the household have a [facility] source [facility]? (Household - for ages [...] encounter Miscellaneous Notes * Telephone Encounter - Xavi Lopez OSA - 01/20/2024 2:53 PM EDT LMOM 01/19 * Telephone Encounter - Janelle Pimentel MD - 01/20/2024 2:27 PM EDT Discussed with pt about biopsy thyroid Her score is 4 but size is still less than 1.5 cm So will do US test in 6 mo again And then if size grows , will do biopsy then Please cancel biopsy And schedule US Discussed with pt documented in this encounter Plan of Treatment Upcoming Encounters Date Type Department Care Team (Late st Contact Info) Description 05/28/2024 10:20 AM EST Office Visit [facility] [address] [facility] [phone] Janelle Pimentel MD [address] [place] [address] 09/08/2024 1:30 PM EDT Office [facility] [place] [address] [facility] [address] Marissa Farris PA-C [address] [facility] [place] [address] Scheduled Orders Name Type Priority Associated Diagnoses Orde r Schedule US HEAD AND NECK Medical Imaging Routine Thyroid nodule Expected: 07/19/2024, Expires: 02/18/2025 Scheduled Procedures Name Priority Associated Diagnoses Date/Ti [...] 06/05/2024 06/05/2022, 06/05/2022 CKD HGB USE SMARTSET 37849 06/24/202406/24, 06/24/2023, 06/12/2022, Additional history exists Adult Wellness Visit 07/05/2024 07/05/2023, 10/16/19 23 CKD PHOS USE SMARTSET 54466 10/07/2024 10/08/2023, 0 02/08/2023 Albumin/Creatinine Ratio 11/24/2024 [...] D LEVEL ONCE IN A LIFETIME-USE SMARTSET# 94696 Completed 02/23/2022 RETIRED - COLONOSCOPY-EVERY 5 YRS [...] as of this encounter Visit Diagnoses Diagnosis Thyroid nodule- Primary Nontoxic uninodular goiter documented in this encounter Care Teams Director Electrical Engineering Relationship Specialty Start Date End Date Janelle Pimentel MD [address] [place] [facility] [place] [address] PCP - General Internal Medicine 02/19/22 documented as of this encounter
--- OUTSIDE RECORDS SUMMARY | 2024-02-27 13:30 | External Medical Summary | Summary of Care ---
Author Name Unknown Organization [facility] Address [address] [place] [address] Phone [phone] Care Team Providers Care Business Systems Manager Name Role Phone Janelle Pimentel MD Primary Care Provider [phone] Reason for Visit * Reason Onset Date Comments Medication Refill 02/17/2024 Encounter Details Date Type Department Care Team (Late st Contact Info) Description 02/17/2024 Refill [facility] [address] [place] [address] Janelle Pimentel MD [address] [place] [address] COPD, mild (HCC); History of TIA (transient ischemic attack); Hyperlipidemia, unspecified hyperlipidemia type; HTN, goal below 140/90 Allergies Active Allergy Reactions Criticality Noted Date [...] as of this encounter (statuses as of 02/20/2024) Medications Medication Sig Dispensed Refills Start Date [...] 2 Capsules before bedtime. Wellness Formula. Active Methocarbamol 500 MG Oral Tablet (Robamol) TAKE ONE TABLET BY MOUTH EVERY MORNING AND ONE TABLET BEFORE BEDTIME 180 Tablet 2 11/25/2023 Active Zolpidem Tartrate 5 MG Oral [...] THE TABLET. 90 Tablet 3 02/19/2024 Active traZODone HCl 100 MG Oral Tablet (Desyrel) Take 0.5 Tablets by mouth at bedtime. 90 Tablet 2 02/19/2023 4 Discontinue d(Refill) ProAir HFA 108 (90 Base) MCG/ACT Inhalation Aerosol Solution Inhale 2 Puffs by mouth every 6 hours as needed for Wheezing. 54 g 3 08/05/2023 4 Discontinue d(Medicatio n List Clean Up) Fluticasone Propionate 50 MCG/ACT Nasal Suspension (Flonase) Administer 2 Sprays into nostril in the morning. 48 mL 2 11/18/2023 4 Discontinue d(Refill) amLODIPine Besylate 2.5 MG Oral Tablet (Norvasc) Take 1 Tablet by mouth every night at bedtime. 100 Tablet 3 11/25/2023 4 Discontinue d(Refill) Cetirizine HCl 10 MG Oral Tablet (ZyrTEC) Take 1 Tablet by mouth in the morning. 90 Tablet 3 11/25/2023 4 Discontinue d(Refill) hydrOXYzine HCl 25 MG Oral Tablet TAKE 1 TABLET BY MOUTH 3 TIMES DAILY - IN THE MORNING, AT NOON, AND BEFORE BEDTIME 300 Tablet 1 11/25/2023 4 Discontinue d(Refill) Pantoprazole Sodium 40 MG Oral Tablet Delayed Release (Protonix) Take 1 Tablet by mouth in the morning. TAKE 1 TABLET BY MOUTH IN THE MORNING 1/2 HOUR BEFORE THE FIRST MEAL OF THE DAY. DO NOT CRUSH, SPLIT OR CHEW THE TABLET Strength: 40 mg. 90 Tablet 3 11/25/2023 4 Discontinue d(Refill) hydroCHLOROthiazide 12.5 MG Oral TabletIndications:H TN, goal below 140/90 Take 1 Tablet by mouth in the morning. 90 Tablet 3 11/25/2023 4 Discontinue d(Refill) Albuterol Sulfate HFA 108 (90 Base) MCG/ACT Inhalation Aerosol Solution Inhale 2 Puffs by mouth every 6 hours as needed (SOB). 18 g 5 11/25/2023 4 Discontinue d(Refill) Atorvastatin Calcium 40 MG Oral Tablet (Lipitor)Indication s:History of TIA (transient ischemic attack),Hyperlipide josep, unspecified hyperlipidemia type TAKE 1 TABLET BY MOUTH IN THE MORNING 100 Tablet 3 11/25/2023 4 Discontinue d(Refill) Nicotine 14 MG/24HR Transdermal Patch 24 Hour (Nicoderm CQ) Place 1 Patch over 24 hours topically on the skin in the morning. On upper body/outer arm, change once a day for two weeks.. 28 Patch 5 11/25/2023 4 Discontinue d(Refill) Trulance 3 MG Oral Tablet (Plecanatide) TAKE 1 TABLET BY MOUTH IN THE MORNING 100 Tablet 3 12/26/2023 4 Discontinue d(Refill) Anoro Ellipta 62.5-25 MCG/ACT Inhalation Aerosol Powder Breath Activated (umeclidinium-vilan terol)Indications:C OPD, mild (HCC) INHALE 1 INHALATION BY MOUTH IN THE MORNING 180 Each 3 12/24/2023 4 Discontinue d(Refill) DULoxetine HCl 60 MG Oral Capsule Delayed Release Particles (Cymbalta) Take 1 Capsule by mouth in the morning. Do not cut, crush or chew. 90 Capsule 3 12/24/2023 4 Discontinue d(Refill) Pantoprazole Sodium 40 MG Oral Tablet Delayed Release (Protonix) Take 1 Tablet by mouth in the morning. TAKE 1 TABLET BY MOUTH IN THE MORNING 1/2 HOUR BEFORE THE FIRST MEAL OF THE DAY. DO NOT CRUSH, SPLIT OR CHEW THE TABLET Strength: 40 mg. 90 Tablet 3 02/19/2024 4 Discontinue d(Refill) documented as of this encounter (statuses as of 02/20/2024) Active Problems Problem Noted Date Diagnosed Date [...] as of this encounter (statuses as of 02/20/2024) Resolved Problems Problem Noted Date Diagnosed Date Resolved Date COPD, mild 05/22/2022 09/19/2022 Overview: Per COPD GOLD Classification Hyperlipidemia 02/19/2022 05/22/2022 Systolic heart failure raj hayes to idiopathic cardiomyopathy 02/19/2022 05/22/2022 documented as of this encounter (statuses as of 02/20/2024) Immunizations Name Administration Dates Next Due Pneumococcal [...] 06/27/2023 Does the household have a re gular source of income? (Household - for ages [...] Telephone Encounter - Janelle Pimentel MD - 02/20/2024 9:43 AM EDTSigned Prescriptions: Disp Refills Albuterol Sulfate HFA 108 (90 Base) MCG/AC*54 g 1 Sig: Inhale 2 Puffs by mouth every 6 hours as needed (SOB). Authorizing Provider: JANELLE PIMENTEL Ordering User: JACQUELINE MEZA amLODIPine Besylate 2.5 MG Oral Tablet (No*100 Ta*3 Sig: Take 1 Tablet by mouth every night at bedtime. Authorizing Provider: JANELLE PIMENTEL Ordering User: JACQUELINE MEZA Anoro Ellipta 62.5-25 MCG/ACT Inhalation A*180 Ea*3 Sig: INHALE 1 INHALATION BY MOUTH IN THE MORNING Authorizing Provider: JANELLE PIMENTEL Ordering User: JACQUELINE MEZA Atorvastatin Calcium 40 MG Oral Tablet (Li*100 Ta*3 Sig: TAKE 1 TABLET BY MOUTH IN THE MORNING Authorizing Provider: JANELLE PIMENTEL Ordering User: JACQUELINE MEZA Cetirizine HCl 10 MG Oral Tab let (ZyrTEC) 90 Tab*3 Sig: Take 1 Tablet by mouth in the morning. Authorizing Provider: JANELLE PIMENTEL Ordering User: JACQUELINE MEZA DULoxetine HCl 60 MG Oral Capsule Delayed *90 Cap*3 Sig: Take 1 Capsule by mouth in the morning. Do not cut, crush or chew. Authorizing Provider: JANELLE PIMENTEL Ordering User: JACQUELINE MEZA Fluticasone Propionate 50 MCG/ACT Nasal Mittal*48 mL 2 Sig: Administer 2 Sprays into nostril in the morning. Authorizing Provider: JANELLE PIMENTEL Ordering User: JACQUELINE MEZA hydroCHLOROthiazide 12.5 MG Oral Tablet 90 Tab*3 Sig: Take 1 Tablet by mouth in the morning. Authorizing Provider: JANELLE PIMENTEL Ordering User: JACQUELINE MEZA hydrOXYzine HCl 25 MG Oral Tablet 300 Ta*1 Sig: TAKE 1 TABLET BY MOUTH 3 TIMES DAILY - IN THE MORNING, AT NOON, AND BEFORE BEDTIME Authorizing Provider: JANELLE PIMENTEL Ordering User: JACQUELINE MEZA Nicotine 14 MG/24HR Transdermal Patch 24 H*28 Pat*5 Sig: Place 1 Patch over 24 hours topically on the skin in the morning. On upper body/outer arm, change once a day for two weeks.. Authorizing Provider: JANELLE PIMENTEL traZODone HCl 100 MG Oral Tablet (Desyrel) 45 Tab*2 Sig: Take 0.5 Tablets by mouth at bedtime. Authorizing Provider: JANELLE PIMENTEL Ordering User: JACQUELINE MEZA Trulance 3 MG Oral Tablet (Plecanatide) 100 Ta*3 Sig: TAKE 1 TABLET BY MOUTH IN THE MORNING Authorizing Provider: JANELLE PIMENTEL Ordering User: JACQUELINE MEZA Pantoprazole Sodium 40 MG Oral Tablet Jailene*90 Tab*3 Sig: Take 1 Tablet by mouth in the morning. TAKE 1 TABLET BY MOUTH IN THE MORNING 1/2 HOUR BEFORE THE FIRST MEAL OF THE DAY. DO NOT CRUSH, SPLIT OR CHEW THE TABLET. Authorizing Provider: JANELLE PIMENTEL Ordering User: JACQUELINE MEZA Refused Prescriptions: Disp Refills ProAir HFA 108 (90 Base) MCG/ACT Inhalatio*54 g 3 Sig: Inhale 2 Puffs by mouth every 6 hours as needed for Wheezing. Refuse d By: JACQUELINE MEZA Reason for Refusal: Duplicate Request * Telephone Encounter - Jacqueline Meza, [facility] - 02/19/2024 10:23 AM EDT Pending Prescriptions: Disp Refills Nicotine 14 MG/24HR Transdermal Patch 24 H*28 Pat*5 Sig: Place 1 Patch over 24 hours topically on the skin in the morning. On upper body/outer arm, change once a day for two weeks.. Signed Prescriptions: Disp Refills Albuterol Sulfate HFA 108 (90 Base) MCG/AC*54 g 1 Sig: Inhale 2 Puffs by mout h every 6 hours as needed (SOB). Authorizing Provider: JANELLE PIMENTEL Ordering User: JACQUELINE MEZA amLODIPine Besylate 2.5 MG Oral Tablet (No*100 Ta*3 Sig: Take 1 Tablet by mouth every night at bedtime. Authorizing Provider: JANELLE PIMENTEL Ordering User: JACQUELINE MEZA Anoro Ellipta 62.5-25 MCG/ACT Inhalation A*180 Ea*3 Sig: INHALE 1 INHALATION BY MOUTH IN THE MORNING Author izing Provider: JANELLE PIMENTEL Ordering User: JACQUELINE MEZA Atorvastatin Calcium 40 MG Oral Tablet (Li*100 Ta*3 Sig: TAKE 1 TABLET BY MOUTH IN THE MORNING Authorizing Provider: JANELLE PIMENTEL Ordering User: JACQUELINE MEZA Cetirizine HCl 10 MG Oral Tablet (ZyrTEC) 90 Tab*3 Sig: Take 1 Tablet by mouth in the morning. Authorizing Provider: JANELLE PIMENTEL Ordering User: JACQUELINE MEZA DULoxetine HCl 60 MG Oral Capsule Delayed *90 Cap*3 Sig: Take 1 Capsule by mouth in the morning. Do not cut, crush or chew. Authorizing Provider: JANELLE PIMENTEL Ordering User: JACQUELINE MEZA Fluticasone Propionate 50 MCG/ACT Nasal Mittal*48 mL 2 Sig: Administer 2 Sprays into nostril in the morning. Authorizing Provider: JANELLE PIMENTEL Ordering User: JACQUELINE MEZA hydroCHLOROthi azide 12.5 MG Oral Tablet 90 Tab*3 Sig: Take 1 Tablet by mouth in the morning. Authorizing Provider: JANELLE PIMENTEL Ordering User: JACQUELINE MEZA hydrOXYzine HCl 25 MG Oral Tablet 300 Ta*1 Sig: TAKE 1 TABLET BY MOUTH 3 TIMES DAILY - IN THE MORNING, AT NOON, AND BEFORE BEDTIME Authorizing Provider: JANELLE PIMENTEL Ordering User: JACQUELINE MEZA traZODone HCl 100 MG Or al Tablet (Desyrel) 45 Tab*2 Sig: Take 0.5 Tablets by mouth at bedtime. Authorizing Provider: JANELLE PIMENTEL Ordering User: JACQUELINE MEZA Trulance 3 MG Oral Tablet (Plecanatide) 100 Ta*3 Sig: TAKE 1 TABLET BY MOUTH IN THE MORNING Authorizing Provider: JANELLE PIMENTEL Ordering User: JACQUELINE MEZA Pantoprazole Sodium 40 MG Oral Tablet Jailene*90 Tab*3 Sig: Take 1 Tablet by mouth in the morning. TAKE 1 TABLET BY MOUTH IN THE MORNING 1/2 HOUR BEFORE THE FIRST MEAL OF THE DAY. DO NOT CRUSH, SPLIT OR CHEW THE TABLET. Authorizing Provider: JANELLE PIMENTEL Ordering User: JACQUELINE MEZA Refused Prescriptions: Disp Refills ProAir HFA 108 (90 Base) MCG/ACT Inhalatio*54 g 3 Sig: Inhale 2 Puffs by mouth every 6 hours as needed for Wheezing. Refused By: JACQUELINE MEZA Reason for Refusal: Duplicate Request * Telephone Encounter - Beth Joyner, [facility] - 02/17/2024 12:26 PM EDT Please reroute Rx to [id number]. Pending Prescriptions: Disp Refills Albuterol Sulfate HFA 108 (90 Base) MCG/A*18 g 5 Sig: Inhale 2 Puffs by mouth every 6 hours as needed (SOB). amLODIPine Besylate 2.5 MG Oral Tablet (N*100 Ta*3 Sig: Take 1 Tablet by mouth every night at bedtime. Anoro Ellipta 62.5-25 MCG/ACT Inhalation *180 Ea*3 Atorvastatin Calcium 40 MG Oral Tablet (L*100 Ta*3 Sig: TAKE 1 TABLET BY MOUTH IN THE MORNING Cetirizine HCl 10 MG Oral Tablet (ZyrTEC) 90 Tab*3 Sig: Take 1 Tablet by mouth in the morning. DULoxetine HCl 60 MG Oral Capsule Delayed*90 Cap*3 Sig: Take 1 Capsule by mouth in the morning. Do not cut, crush or chew. Fluticasone Propionate 50 MCG/ACT Nasal S*48 mL 2 Sig: Administer 2 Sprays into nostril in the morning. hydroCHLOROthiazide 12.5 MG Oral Tablet 90 Tab*3 Sig: Take 1 Tablet by mouth in the morning. hydrOXYzine HCl 25 MG Oral Tablet 300 Ta*1 Sig: TAKE 1 TABLET BY MOUTH 3 TIMES DAILY - IN THE MORNING, AT NOON, AND BEFORE BEDTIME Nicotine 14 MG/24HR Transdermal Patch 24 *28 Pat*5 Sig: Place 1 Patch over 24 hours topically on the skin in the morning. On upper body/outer arm, change once a day for two weeks.. Pantoprazole Sodium 40 MG Oral Tablet Del*90 Tab*3 Sig: Take 1 Tablet by mouth in the morning. TAKE 1 TABLET BY MOUTH IN THE MORNING 1/2 HOUR BEFORE THE FIRST MEAL OF THE DAY. DO NOT CRUSH, SPLIT OR CHEW THE TABLET Strength: 40 mg. ProAir HFA 108 (90 Base) MCG/ACT Inhalati*54 g 3 Sig: Inhale 2 Puffs by mouth every 6 hours as needed for Wheezing. traZODone HCl 100 MG Oral Tablet (Desyrel)90 Tab*2 Sig: Take 0.5 Tablets by mouth at bedtime. Trulance 3 MG Oral Tablet (Plecanatide) 100 Ta*3 Sig: Take 1 Tablet by mouth. In the morning. Last Visit: 11/25/2023 (in office), Visit date not found (telemedicine) 05/28/2024 If no future appointments scheduled, and last appointment is greater than a year ago, please schedule patient for a follow-up appointment Last date the medication was ordered: Patient Phone Numbers Labs: Lab Results Component Value Date/Time CREAT 1.2 (H) 10/08/2023 11:54 AM POTASSIUM 3.9 10/08/2023 11:54 AM TSH 2.02 06/16/2019 12:00 AM LDL 33 10/08/2023 11:54 AM LDLCALC 57 04/19/2021 12:00 AM LDLCALC 33 09/12/2017 07:14 AM ALT 32 06/24/2023 09:44 AM HGBA1C 5.9 (H) 11/25/2023 10:47 AM documented in this encounter Plan of Treatment Upcoming Encounters Date Type Department Care Team (Late st Contact Info) Description 05/28/2024 10:20 AM EST Office Visit [facility] [address] [place] [id number] Janelle Pimentel MD [address] [place] [address] 07/20/2024 11:30 AM EDT Imaging Radiology [facility] [address] [place] [address] 09/08/2024 1:30 PM EDT Office Visit Neurology [facility] [address] [place] [address] Marissa Farris PA-C [address] [place] [address] Scheduled Procedures Name Priority Associated Diagnoses Date/Ti [...] 06/05/2024 06/05/2022, 06/05/2022 CKD HGB USE SMARTSET 43659 06/24/202406/24, 06/24/2023, 06/12/2022, Additional history exists Adult Wellness Visit 07/05/2024 07/05/2023, 10/16/19 CKD PHOS USE SMARTSET 46288 10/07/2024 10/08/2023, 0 02/08/2023 Albumin/Creatinine Ratio 11/24/2024 [...] D LEVEL ONCE IN A LIFETIME-USE SMARTSET# [id number] Completed 02/23/2022 RETIRED - COLONOSCOPY-EVERY 5 YRS [...] as of this encounter Visit Diagnoses Diagnosis COPD, mild (HCC) Chronic airway obstruction, not elsewhere classified History of TIA (transient ischemic attack) Transient ischemic attack (TIA), and cerebral infarction without residual deficits Hyperlipidemia, unspecified hyperlipidemia type HTN, goal below 140/90 Unspecified essential hypertension documented in this encounter Care Teams Business Systems Manager Relationship Specialty Start Date End Date Janelle Pimentel MD [address] [place] [address] PCP - General Internal Medicine 02/19/22 documented as of this encounter
--- OUTSIDE RECORDS SUMMARY | 2024-02-27 13:30 | External Medical Summary | Summary of Care ---
Author Name Unknown Organization [facility] Address [address] [place] [address] Phone [phone] Care Team Providers Care Manager Android Name Role Phone Janelle Pimentel MD Primary Care Provider [phone] Reason for Visit * Reason Onset Date Comments Advice 12/24/2023 Encounter Details Date Type Department Care Team (Late st Contact Info) Description 12/24/2023 Telephone [facility] [address] [place] [address] Janelle Pimentel MD [address] [place] [address] Advice Allergies Active Allergy Reactions Criticality Noted Date [...] as of this encounter (statuses as of 12/26/2023) Medications Medication Sig Dispensed Refills Start Date [...] by mouth at bedtime. 90 Tablet 2 3 Active ProAir HFA 108 (90 Base) MCG/ACT Inhalation Aerosol Solution Inhale 2 Puffs by mouth every 6 hours as needed for Wheezing. 54 g 3 4 Active Fluticasone Propionate 50 MCG/ACT Nasal Suspension (Flonase) Administer 2 Sprays into nostril in the morning. 48 mL 2 4 Active amLODIPine Besylate 2.5 MG Oral Tablet (Norvasc) Take 1 Tablet by mouth every night at bedtime. 100 Tablet 3 4 Active Cetirizine HCl 10 MG Oral Tablet (ZyrTEC) Take 1 Tablet by mouth in the morning. 90 Tablet 3 4 Active hydrOXYzine HCl 25 MG Oral Tablet TAKE 1 TABLET BY MOUTH 3 TIMES DAILY - IN THE MORNING, AT NOON, AND BEFORE BEDTIME 300 Tablet 1 4 Active Methocarbamol 500 MG Oral Tablet (Robamol) TAKE ONE TABLET BY MOUTH EVERY MORNING AND ONE TABLET BEFORE BEDTIME 180 Tablet 2 4 Active Pantoprazole Sodium 40 MG Oral Tablet Delayed Release (Protonix) Take 1 Tablet by mouth in the morning. TAKE 1 TABLET BY MOUTH IN THE MORNING 1/2 HOUR BEFORE THE FIRST MEAL OF THE DAY. DO NOT CRUSH, SPLIT OR CHEW THE TABLET Strength: 40 mg. 90 Tablet 3 4 Active Zolpidem Tartrate 5 MG Oral Tablet (Ambien) Take 1 Tablet by mouth at bedtime as needed for Sleep. 30 Tablet 3 4 Active hydroCHLOROthiazide 12.5 MG Oral TabletIndications:H TN, goal below 140/90 Take 1 Tablet by mouth in the morning. 90 Tablet 3 4 Active Albuterol Sulfate HFA 108 (90 Base) MCG/ACT Inhalation Aerosol Solution Inhale 2 Puffs by mouth every 6 hours as needed (SOB). 18 g 5 4 Active Atorvastatin Calcium 40 MG Oral Tablet (Lipitor)Indication s:History of TIA (transient ischemic attack),Hyperlipide josep, unspecified hyperlipidemia type TAKE 1 TABLET BY MOUTH IN THE MORNING 100 Tablet 3 4 Active Nicotine 14 MG/24HR Transdermal Patch 24 Hour (Nicoderm CQ) Place 1 Patch over 24 hours topically on the skin in the morning. On upper body/outer arm, change once a day for two weeks.. 28 Patch 5 4 Active DULoxetine HCl 60 MG Oral Capsule Delayed Release Particles (Cymbalta) Take 1 Capsule by mouth in the morning. Do not cut, crush or chew. 90 Capsule 3 4 Active Trulance 3 MG Oral Tablet (Plecanatide) Take 3 mg by mouth in the morning. 90 Tablet 3 3 12/26/19 24 Discontinued Anoro Ellipta 62.5-25 MCG/ACT Inhalation Aerosol Powder Breath Activated (umeclidinium-vilan terol)Indications:b reathing Inhale 1 Puff by mouth in the morning. 90 Each 3 3 12/24/19 24 Discontinued documented as of this encounter (statuses as of 12/26/2023) Active Problems Problem Noted Date Diagnosed Date [...] as of this encounter (statuses as of 12/26/2023) Resolved Problems Problem Noted Date Diagnosed Date Resolved Date COPD, mild 05/22/2022 09/19/2022 Overview: Per COPD GOLD Classification Hyperlipidemia 02/19/2022 05/22/2022 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 02/19/2022 05/22/2022 documented as of this encounter (statuses as of 12/26/2023) Immunizations Name Administration Dates Next Due Pneumococcal [...] encounter Miscellaneous Notes * Telephone Encounter - Britt Mejia OSA - 12/26/2023 12:48 PM EDT Information given to patient and US scheduled. 12/26/2023 * Addendum Note - Janelle Pimentel MD - 12/26/2023 12:19 PM EDTAddended by: JANELLE PIMENTEL on: 12/26/2023 12:19 PM Modules accepted: Orders * Telephone Encounter - Janelle Pimentel MD - 12/26/2023 12:18 PM EDT Please schedule neck US * Telephone Encounter - Jerri Leigh LPN - 12/25/2023 2:40 PM EDT Attempted to call patient, there was no answer, left voicemail. When patient returns call, ok for RENNY to relay message, please refer to below documentation. If needed, can transfer to dedicated nurse line. MYG sent * Telephone Encounter - Janelle Pimentel MD - 12/24/2023 3:32 PM EDT Called pt for MRI - no answer Known chronic back issue with degenerative condition MRI thoracic spine showed same problem , arthritis , nerve compression, inflammation Can discuss with pain medicine and spinal surgery Showed accidental finding of rt thyroid nodule , small size Pt had normal thyroid function and nodule finding is very common Can get US neck for further eval if pt agrees * Telephone Encounter - Carolann Calabrese OSA - 12/24/2023 7:51 AM EDT Pt calling, pt would like to speak Dr Pimentel regarding her MRI. She has concerns. Please call her back. documented in this encounter Plan of Treatment Upcoming Encounters Date Type Department Care Team (Late st Contact Info) Description 05/28/2024 10:20 AM EST Office Visit [place] [address] [facility] [place] [address] Janelle Pimentel MD [address] [place] [address] 09/08/2024 1:30 PM EDT Office Visit Neurology [facility] [place] [address] [facility] [place] [address] Marissa Farris PA-C [address] [facility] [place] [address] Scheduled Orders Name Type Priority Associated Diagnoses Orde r Schedule US HEAD AND NECK Medical Imaging Routine Thyroid nodule Expected: 12/26/2023, Expires: 01/25/2025 Scheduled Procedures Name Priority Associated Diagnoses Date/Ti [...] 06/05/2024 06/05/2022, 06/05/2022 CKD HGB USE SMARTSET 56504 06/24/202406/24, 06/24/2023, 06/12/2022, Additional history exists Adult Wellness Visit 07/05/2024 07/05/2023, 10/16/19 CKD PHOS USE SMARTSET [id number] 10/07/2024 10/08/2023, 0 02/08/2023 Albumin/Creatinine Ratio 11/24/2024 [...] D LEVEL ONCE IN A LIFETIME-USE SMARTSET# [id number] Completed 02/23/2022 RETIRED - COLONOSCOPY-EVERY 5 YRS AGES 18-100 Discontinued 05/25/2022, 05/25/2022, 05/24/2022, Additional history exists COVID-19 Vaccine Discontinued DTaP,Tdap,and Td Vaccines Discontinued HPV (Gardasil) Vaccine Aged Out [...] goiter documented in this encounter Care Teams Manager Android Relationship Specialty Start Date End Date Janelle Pimentel MD [address] [place] [address] PCP - General Internal Medicine 02/19/22 documented as of this encounter
--- OUTSIDE RECORDS SUMMARY | 2024-02-27 13:30 | External Medical Summary | Summary of Care ---
Author Name Unknown Organization [facility] Address [address] [place] [address] Phone [phone] Care Team Providers Care Patient Care Representative Name Role Phone Janelle Pimentel MD Primary Care Provider [phone] Reason for Visit * Reason Onset Date Comments Remote Patient Monitoring Alert 02/14/2024 Encounter Details Date Type Department Care Team (Late st Contact Info) Description 02/14/2024 Home Monitoring Care Coordination [address] [place] [address] Munir Zhu LPN HTN, goal below 140/90* Allergies Active Allergy Reactions Criticality Noted Date [...] as of this encounter (statuses as of 02/14/2024) Medications Medication Sig Dispensed Refills Start Date [...] as of this encounter (statuses as of 02/14/2024) Active Problems Problem Noted Date Diagnosed Date [...] as of this encounter (statuses as of 02/14/2024) Resolved Problems Problem Noted Date Diagnosed Date Resolved Date COPD, mild 05/22/2022 09/19/2022 Overview: Per COPD GOLD Classification Hyperlipidemia 02/19/2022 05/22/2022 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 (Household - for ages [...] on file documented as of this encounter Progress Notes * No Kovacs RPh - 02/14/2024 11:28 AM EDT SBP DBP Pulse 144 80 66 153 80 77 130 61 73 120 70 70 131 74 84 126 75 76 147 76 69 Average 136 74 #DIV/0! 74 Hi 153 80 0 84 Lo 120 61 0 66 Range 33 19 0 18 Elevated BP the last two days is raising overall average. Recommend continue to monitor, no changes at this time. No Kovacs, PharmD, BCACP Clinical Pharmacist Medication Therapy Disease Management 02/14/2024, 11:28 AM * Munir Zhu LPN - 02/14/2024 11:23 AM EDT Enma Goff [id number] Enma Goff is currently participating in the [employer] Hypertension Management Program and had a reading on 02/13 of 144/80. Pt has alerted for an Average BP over 7 days >/= 140/90 . Parameters are currently set as follows: Average BP over 7 days >/= 140/90 Singular Systolic BP Reading </= 90 or >/=180 Singular Diastolic BP Reading </= 50 or >/=120 Patient is not reporting new symptoms or concerns. The patient does have all her blood pressure medications and is taking them as prescribed. Please review the recent history of home RPM readings in Epic Synopsis Flowsheets and work with your clinical staff if any additional actions or interventions are required. If you would like to customize the alert parameters and/or instructions for this patient, please let me know and we can have them changed. Thank you! MUNIR ZHU LPN documented in this encounter Plan of Treatment Upcoming Encounters Date Type Department Care Team (Late st Contact Info) Description 05/28/2024 10:20 AM EST Office Visit [facility] [address] [place] [facility] [place] [address] Jaenlle Pimentel MD [address] [place] [address] 07/20/2024 11:30 AM EDT Imaging Radiology [facility] [address] [facility] [place] [address] 09/08/2024 1:30 PM EDT Office Visit [facility] [address] Marissa Farris PA-C [address] [place] [address] Scheduled Procedures Name Priority Associated Diagnoses Date/Ti [...] 06/05/2024 06/05/2022, 06/05/2022 CKD HGB USE SMARTSET 23688 06/24/202406/24, 06/24/2023, 06/12/2022, Additional history exists Adult Wellness Visit 07/05/2024 07/05/2023, 10/16/19 CKD PHOS USE SMARTSET 19016 10/07/2024 10/08/2023, 0 02/08/2023 Albumin/Creatinine Ratio 11/24/2024 [...] D LEVEL ONCE IN A LIFETIME-USE SMARTSET# [id number] Completed 02/23/2022 RETIRED - COLONOSCOPY-EVERY 5 YRS [...] as of this encounter Visit Diagnoses Diagnosis HTN, goal below 140/90- Primary Unspecified essential hypertension documented in this encounter Care Teams Patient Care Representative Relationship Specialty Start Date End Date Janelle Pimentel MD [address] [place] [address] PCP - General Internal Medicine 02/19/22 documented as of this encounter
--- OUTSIDE RECORDS SUMMARY | 2024-02-27 13:30 | External Medical Summary | Summary of Care ---
Author Name Unknown Organization [facility] Address [address] [place] [address] Phone [phone] Care Team Providers Care Rn Urgent Care Name Role Phone Janelle Pimentel MD Primary Care Provider [phone] Encounter Details Date Type Department Care Team (Late st Contact Info) Description 01/21/2024 Documentation Interventional Radiology [facility] 1st Floor [address] [place] [address] Rosio Rockwell MD [address] [place] [address] Allergies Active Allergy Reactions Criticality Noted Date [...] as of this encounter (statuses as of 01/21/2024) Medications Medication Sig Dispensed Refills Start Date [...] by mouth in the morning. 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 (Household - for ages [...] as of this encounter Miscellaneous Notes * Communication - Rosio Rockwell MD - 01/21/2024 3:35 PM EDT Interventional Radiology Brief Outpatient Consult Note For: Bilateral thyroid nodule biopsies Case was reviewed, and it was determined that neither nodule met size criteria for biopsy. After discussion with Dr. Janelle Pimentel (who discussed the situation with Ms. Goff), the decision was made to repeat US in 6 months and then decide on a biopsy if size grows more than 1.5 cm. Rosio Rockwell MD IR/ PGY-4 Vascular and Interventional Radiology documented in this encounter Plan of Treatment Upcoming Encounters Date Type Department Care Team (Late st Contact Info) Description 05/28/2024 10:20 AM EST [facility] [address] [facility] [phone] Janelle Pimentel MD [address] [place] [facility] [place] [address] 09/08/2024 1:30 PM EDT Office Visit Neurology [facility] [address] [place] [address] Marissa Farris PA-C [address] [facility] [place] [address] Scheduled Procedures Name Priority Associated Diagnoses Date/Ti [...] 06/05/2024 06/05/2022, 06/05/2022 CKD HGB USE SMARTSET 95067 06/24/202406/24, 06/24/2023, 06/12/2022, Additional history exists Adult Wellness Visit 07/05/2024 07/05/2023, 10/16/19 CKD PHOS USE SMARTSET 71555 10/07/2024 10/08/2023, 0 02/08/2023 Albumin/Creatinine Ratio 11/24/2024 [...] D LEVEL ONCE IN A LIFETIME-USE SMARTSET# 74677 Completed 02/23/2022 RETIRED - COLONOSCOPY-EVERY 5 YRS [...] filedocumented as of this encounter Care Teams Rn Urgent Care Relationship Specialty Start Date End Date Janelle Pimentel MD [address] [place] [address] PCP - General Internal Medicine 02/19/22 documented as of this encounter
--- OUTSIDE RECORDS SUMMARY | 2024-02-27 13:30 | External Medical Summary | Summary of Care ---
Author Name Unknown Organization [facility] Address [address] [place] [address] Phone [phone] Care Team Providers Care Duty Manager Name Role Phone Janelle Pimentel MD Primary Care Provider [phone] Reason for Visit * Reason Onset Date Comments Advice 12/24/2023 Encounter Details Date Type Department Care Team (Late st Contact Info) Description 12/24/2023 Telephone [facility] [address] [place] [address] Janelle Pimentel MD [address] [place] [address] Advice Allergies Active Allergy Reactions [...] Miscellaneous Notes * Telephone Encounter - Britt Mejai OSA - 12/26/2023 12:48 PM EDT Information given to patient and US scheduled. Patient states she is already seeing Pain management and Spine Surgeon she did not want to schedulethese. 12/26/2023 * Addendum Note - Janelle Pimentel [...] Care Team (Late st Contact Info) Description 12/27/2023 11:15 AM EDT Imaging Radiology [facility] [address] [place] [address] 05/28/2024 10:20 AM EST Office Visit [facility] [address] [place] [facility] [place] [phone] Janelle Pimentel MD [address] [facility] [address] 09/08/2024 1:30 PM EDT Office Visit [facility] [address] [facility] [address] Marissa Farris PA-C [address] [facility] [place] [address] Scheduled Orders Name Type Priority Associated Diagnoses [...] 06/05/2024 06/05/2022, 06/05/2022 CKD HGB USE SMARTSET 19730 06/24/202406/24, 06/24/2023, 06/12/2022, Additional history exists Adult Wellness Visit 07/05/2024 07/05/2023, 10/16/19 CKD PHOS USE SMARTSET 48720 10/07/2024 10/08/2023, 0 02/08/2023 Albumin/Creatinine Ratio 11/24/2024 [...] D LEVEL ONCE IN A LIFETIME-USE SMARTSET# 36247 Completed 02/23/2022 RETIRED - COLONOSCOPY-EVERY 5 YRS [...] goiter documented in this encounter Care Teams Duty Manager Relationship Specialty Start Date End Date Janelle Pimentel MD [address] [place] [address] PCP - General Internal Medicine 02/19/22 documented as of this encounter
--- OUTSIDE RECORDS SUMMARY | 2024-02-27 13:30 | External Medical Summary | Summary of Care ---
Author Name Unknown Organization [facility] Address [address] [place] [address] Phone [phone] Care Team Providers Care Party Bus Driver Name Role Phone Janelle Pimentel MD Primary Care Provider [phone] Reason for Visit * Reason Onset Date Comments Medication Refill 02/20/2024 Encounter Details Date Type Department Care Team (Late st Contact Info) Description 02/20/2024 Refill [facility] [address] [place] [address] Janelle Pimentel MD [address] [place] [address] Allergies Active Allergy Reactions Criticality [...] THE TABLET. 90 Tablet 3 02/19/2024 Active documented as of this encounter (statuses [...] Classification Hyperlipidemia 02/19/2022 05/22/2022 Systolic heart failure secantonia hayes to idiopathic cardiomyopathy 02/19/2022 05/22/2022 documented [...] encounter Miscellaneous Notes * Telephone Encounter - Renuka Arshad - 02/20/2024 10:44 PM EDTRefused Prescriptions: Disp Refills Trulance 3 MG Oral Tablet (Plecanatide) 100 Ta*3 Sig: TAKE 1 TABLET BY MOUTH IN THE MORNINGRefused By: Aracelis ARSHAD for Refusal: Duplicate Request documented in this encounter Plan of Treatment Upcoming Encounters Date Type Department Care Team (Late st Contact Info) Description 05/28/2024 10:20 AM EST Office Visit [facility] [address] [place] [phone] Janelle Pimentel MD [address] [place] [address] 07/20/2024 11:30 AM EDT Imaging Radiology [facility] [address] [place] [address] 09/08/2024 1:30 PM EDT Office Visit [facility] [address] [facility] [address] Marissa Farris PA-C [address] [place] [address] Scheduled Procedures Name Priority Associated Diagnoses Date/Ti [...] 06/05/2024 06/05/2022, 06/05/2022 CKD HGB USE SMARTSET 98320 06/24/202406/24, 06/24/2023, 06/12/2022, Additional history exists Adult Wellness Visit 07/05/2024 07/05/2023, 10/16/19 CKD PHOS USE SMARTSET 26857 10/07/2024 10/08/2023, 0 02/08/2023 Albumin/Creatinine Ratio 11/24/2024 [...] D LEVEL ONCE IN A LIFETIME-USE SMARTSET# 82728 Completed 02/23/2022 RETIRED - COLONOSCOPY-EVERY 5 YRS [...] filedocumented as of this encounter Care Teams Party Bus Driver Relationship Specialty Start Date End Date Janelle Pimentel MD [address] [place] [address] PCP - General Internal Medicine 02/19/22 documented as of this encounter
--- OUTSIDE RECORDS SUMMARY | 2024-02-27 13:30 | External Medical Summary | Summary of Care ---
Author Name Unknown Organization [facility] Address [address] [place] [address] Phone [phone] Care Team Providers Care Engraving Supervisor Name Role Phone Janelle Pimentel MD Primary Care Provider [phone] Encounter Details Date Type Department Care Team (Late st Contact Info) Description 01/20/[address] [facility] [address] [place] [address] Janelle Pimentel MD [address] [place] [address] Allergies Active Allergy Reactions Criticality [...] 05/28/2024 10:20 AM EST Office Visit [facility], [place] [address] [place] [facility] [place] [address] Janelle Pimentel MD [address] [place] [address] 09/08/2024 1:30 PM EDT Office Visit Neurology [facility] [place] [address] [facility] [place] [address] Marissa Farris PA-C [address] [facility] [place] [address] Scheduled Orders Name Type Priority Associated Diagnoses [...] 06/05/2024 06/05/2022, 06/05/2022 CKD HGB USE SMARTSET 87191 06/24/202406/24, 06/24/2023, 06/12/2022, Additional history exists Adult Wellness Visit 07/05/2024 07/05/2023, 10/16/19 CKD PHOS USE SMARTSET 05661 10/07/2024 10/08/2023, 0 02/08/2023 Albumin/Creatinine Ratio 11/24/2024 [...] D LEVEL ONCE IN A LIFETIME-USE SMARTSET# 95447 Completed 02/23/2022 RETIRED - COLONOSCOPY-EVERY 5 YRS [...] goiter documented in this encounter Care Teams Engraving Supervisor Relationship Specialty Start Date End Date Janelle Pimentel MD [address] [place] [address] PCP - General Internal Medicine 02/19/22 documented as of this encounter
--- OUTSIDE RECORDS SUMMARY | 2024-02-27 13:30 | External Medical Summary | Summary of Care ---
Author Name Unknown Organization [facility] Address [address] [place] [address] Phone [phone] Care Team Providers Care Machine Repairer Maintenance Name Role Phone Janelle Pimentel MD Primary Care Provider [phone] Reason for Visit * Reason Onset Date Comments Remote Patient Monitoring Alert 01/20/2024 Encounter Details Date Type Department Care Team (Late st Contact Info) Description 01/20/2024 Home Monitoring Care Coordination [address] [place] [address] HepDary flores, BAD CREDIT COLLECTOR HTN, goal below 140/90* Allergies Active Allergy [...] No 06/27/2023 Does the household have a [facility] source of income? (Household - for [...] of this encounter Progress Notes * No Kovacs, [facility] - 01/21/2024 8:20 AM EDT SBP DBP Pulse 126 76 83 114 66 85 152 83 76 138 73 96 135 75 80 154 82 77 150 77 70 Average 138 76 #DIV/0! 81 Hi 154 83 0 96 Lo 114 66 0 70 Range 40 17 0 26 BP average reasonable. Last two readings were elevated, but overall control is reasonable at this time. Not recommending any changes, if occurrence of elevated readings such as the last two days continues, will plan to make adjustments to regimen. No Kovacs, PharmD, BCACP Clinical Pharmacist Medication Therapy Disease Management 01/21/2024, 8:22 AM * Dary Purcell LPN - 01/20/2024 9:04 AM EDT Enma Goff [id number] Enma Goff is currently participating in the [employer] Hypertension Management Program and had a reading on 01/19/2024 of 150/77. Pt has alerted for an Average BP [...] we can have them changed. Thank you! Dary Purcell LPN documented in this encounter Plan of Treatment Upcoming Encounters Date Type Department Care Team (Late st Contact Info) Description 05/28/2024 10:20 AM EST Office Visit [facility] [address] [place] [address] Janelle Pimentel MD [address] [place] [address] 09/08/2024 1:30 PM EDT Office Visit Neurology [facility] [place] [address] [facility] [address] Marissa Farris PA-C [address] [place] [address] Scheduled Procedures Name Priority Associated Diagnoses Date/Ti [...] 06/05/2024 06/05/2022, 06/05/2022 CKD HGB USE SMARTSET 77944 06/24/202406/24, 06/24/2023, 06/12/2022, Additional history exists Adult Wellness Visit 07/05/2024 07/05/2023, 10/16/19 CKD PHOS USE SMARTSET 89224 10/07/2024 10/08/2023, 0 02/08/2023 Albumin/Creatinine Ratio 11/24/2024 [...] D LEVEL ONCE IN A LIFETIME-USE SMARTSET# 66640 Completed 02/23/2022 RETIRED - COLONOSCOPY-EVERY 5 YRS [...] hypertension documented in this encounter Care Teams Machine Repairer Maintenance Relationship Specialty Start Date End Date Janelle Pimentel MD [address] [place] [address] PCP - General Internal Medicine 02/19/22 documented as of this encounter
--- OUTSIDE RECORDS SUMMARY | 2024-02-27 13:31 | External Medical Summary | Summary of Care ---
Author Name Unknown Organization [facility] Address [address] [place] [address] Phone [phone] Care Team Providers Care Fur Dry Cleaner Name Role Phone Janelle Pimentel MD Primary Care Provider [phone] Reason for Visit * Reason Onset Date Comments Remote Patient Monitoring Alert 12/19/2023 Encounter Details Date Type Department Care Team (Late st Contact Info) Description 12/19/2023 Home Monitoring Care Coordination [address] [place] [address] HepDary flores, HUMAN INTELLIGENCE HTN, goal below 140/90* Allergies Active Allergy [...] as of this encounter (statuses as of 12/19/2023) Medications Medication Sig Dispensed Refills Start Date [...] at bedtime. 90 Tablet 2 02/19/2023 Active Trulance 3 MG Oral Tablet (Plecanatide) Take 3 mg by mouth in the morning. 90 Tablet 3 02/25/2023 Active Anoro Ellipta 62.5-25 MCG/ACT Inhalation Aerosol Powder Breath Activated (umeclidinium-vilante rol)Indications:breat alexis Inhale 1 Puff by mouth in the morning. 90 Each 3 02/26/2023 Active ProAir HFA 108 (90 Base) MCG/ACT [...] the morning. 90 Tablet 3 11/25/2023 Active DULoxetine HCl 60 MG Oral Capsule Delayed Release Particles (Cymbalta) Take 1 Capsule by mouth in the morning. Do not cut, crush or chew. 90 Capsule 3 11/25/2023 Active hydrOXYzine HCl 25 MG [...] BY MOUTH IN THE MORNING 100 Tablet 11/25/2023 Active Nicotine 14 MG/24HR Transdermal Patch 24 Hour (Nicoderm CQ) Place 1 Patch over 24 hours topically on the skin in the morning. On upper body/outer arm, change once a day for two weeks.. 28 Patch 5 11/25/2023 Active documented as of this encounter (statuses as of 12/19/2023) Active Problems Problem Noted Date Diagnosed Date Insomnia 08/05/2023 Constipation 08/05/2023 Osteoporosis 12/24/2022 SAMREEN [...] as of this encounter (statuses as of 12/19/2023) Resolved Problems Problem Noted Date Diagnosed Date Resolved Date COPD, mild 05/22/2022 09/19/2022 Overview: Per COPD GOLD Classification Hyperlipidemia 02/19/2022 05/22/2022 Systolic heart failure secantonia freddy to idiopathic cardiomyopathy 02/19/2022 05/22/2022 documented as of this encounter (statuses as of 12/19/2023) Immunizations Name Administration Dates Next Due Pneumococcal [...] as of this encounter Progress Notes * Janett Carranza RPh - 12/19/2023 11:38 AM EDT Average BP: 135/77 Goal <140/90 Patient's BP within goal, will continue current regimen and continue monitoring. Janett Carranza, Pharm D, BCACP Clinical Pharmacist 12/19/2023, 11:39 AM * Dary Purcell LPN - 12/19/2023 10:54 AM EDT Enma Goff [id number] Enma Goff is currently participating in the [facility] Hypertension Management Program and had a reading on 12/19/2023 of 152/81. Pt has alerted for an Average BP [...] Care Team (Late st Contact Info) Description 12/19/2023 4:00 PM EDT Imaging Radiology [facility] [facility], [address] [place] [address] 05/28/2024 10:20 AM EST Office Visit [facility] [address] [place] [address] Janelle Pimentel MD [address] [place] [address] 09/08/2024 1:30 PM EDT Office Visit Neurology [facility] [address] [place] [address] Marissa Farris PA-C [address] [facility] [place] [address] Scheduled Procedures Name Priority Associated Diagnoses Date/Ti [...] 06/05/2024 06/05/2022, 06/05/2022 CKD HGB USE SMARTSET 84939 06/24/202406/24, 06/24/2023, 06/12/2022, Additional history exists Adult Wellness Visit 07/05/2024 07/05/2023, 10/16/19 CKD PHOS USE SMARTSET 40564 10/07/2024 10/08/2023, 0 02/08/2023 Albumin/Creatinine Ratio 11/24/2024 024, 10/08/2023, 02/08/2023, Additional history exists Depression Screening 11/24/2024 11/25/2023 O2 ASSESSMENT COMPLETED IN PAST YEAR FOR COPD 11/24/2024 11/25/2023 Colonoscopy 05/25/2027 05/25/2022, 05/13, 05/24/2022, Additional history exists Colorectal Cancer Screening 05/25/2027 Lipid Panel 10/07/2028 10/08/2023, 05/15, 04/19/2021, Additional history exists Pneumococcal Vaccine: 65+ Years Completed 09/24/2018, 03/07/2017 VITAMIN D LEVEL ONCE IN A LIFETIME-USE SMARTSET# 60802 Completed 02/23/2022 RETIRED - COLONOSCOPY-EVERY 5 YRS [...] hypertension documented in this encounter Care Teams Fur Dry Cleaner Relationship Specialty Start Date End Date Janelle Pimentel MD [address] [place], [place] [phone] PCP - General Internal Medicine 02/19/22 documented as of this encounter
--- OUTSIDE RECORDS SUMMARY | 2024-02-27 13:31 | External Medical Summary | Summary of Care ---
Author Name Unknown Organization [facility] Address [address] [place] [address] Phone [phone] Care Team Providers Care Barrel Plater Name Role Phone Janelle Pimentel MD Primary Care Provider [phone] Reason for Visit * Reason Onset Date Comments Advice 12/24/2023 Encounter Details Date Type Department Care Team (Late st Contact Info) Description 12/24/2023 Telephone [facility] [address] [place] [address] Janelle Pimentel MD [address] [place] [address] Advice Allergies Active Allergy Reactions [...] as of this encounter Miscellaneous Notes * Addendum Note - Janelle Pimentel MD [...] Description 05/28/2024 10:20 AM EST Office Visit [facility] [address] [place] [address] Janelle Pimentel MD [address] [place] [address] 09/08/2024 1:30 PM EDT Office Visit Neurology [facility] [address] [place] [phone] Marissa Farris PA-C [email or web address] [place] [address] Scheduled Orders Name Type Priority Associated Diagnoses [...] 06/05/2024 06/05/2022, 06/05/2022 CKD HGB USE SMARTSET 83521 06/24/202406/24, 06/24/2023, 06/12/2022, Additional history exists Adult Wellness Visit 07/05/2024 07/05/2023, 10/16/19 CKD PHOS USE SMARTSET 65068 10/07/2024 10/08/2023, 0 02/08/2023 Albumin/Creatinine Ratio 11/24/2024 [...] D LEVEL ONCE IN A LIFETIME-USE SMARTSET# 69102 Completed 02/23/2022 RETIRED - COLONOSCOPY-EVERY 5 YRS [...] goiter documented in this encounter Care Teams Barrel Plater Relationship Specialty Start Date End Date Janelle Pimentel MD [address] [place] [address] PCP - General Internal Medicine 02/19/22 documented as of this encounter
--- OUTSIDE RECORDS SUMMARY | 2024-02-27 13:31 | External Medical Summary | Summary of Care ---
Author Name Unknown Organization [facility] Address [address] [place] [address] Phone [phone] Care Team Providers Care Auto Polisher Name Role Phone Janelle Pimentel MD Primary Care Provider [phone] Reason for Visit * Reason Comments eRx-Medication Refill Encounter Details Date Type Department Care Team (Late st Contact Info) Description 12/23/2023 Refill [facility] [address] [place] [address] Janelle Pimentel MD [address] [place] [address] COPD, mild (HCC) Allergies Active Allergy Reactions Criticality Noted Date [...] two weeks.. 28 Patch 5 4 Active Trulance 3 MG Oral Tablet (Plecanatide) TAKE 1 TABLET BY MOUTH IN THE MORNING 100 Tablet 3 4 Active Anoro Ellipta 62.5-25 MCG/ACT Inhalation Aerosol Powder Breath Activated (umeclidinium-vilan terol)Indications:C OPD, mild (HCC) INHALE 1 INHALATION BY MOUTH IN THE MORNING 180 Each 3 4 Active Trulance 3 MG Oral [...] Encounter - Janelle Pimentel MD - 12/26/2023 7:30 AM EDTSigned Prescriptions: Disp Refills Trulance 3 MG Oral Tablet (Plecanatide) 100 Ta*3 Sig: TAKE 1 TABLET BY MOUTH IN THE MORNING Authorizing Provider: JANELLE PIMENTEL Anoro Ellipta 62.5-25 MCG/ACT Inhalation A*180 Ea*3 Sig: INHALE 1 INHALATION BY MOUTH IN THE MORNING Authorizing Provider: JANELLE PIMENTEL Ordering User: BRODY SQUIRES * Telephone Encounter - Interface, E-Rx Ss Inbound - 12/25/2023 5:55 AM EDT Pending Prescriptions: Disp Refills Trulance 3 MG Oral Tablet (Plecanatide) 100 Ta*3 Sig: TAKE 1 TABLET BY MOUTH IN THE MORNING Signed Prescriptions: Disp Refills Anoro Ellipta 62.5-25 MCG/ACT Inhalation A*180 Ea*3 Sig: INHALE 1 INHALATION BY MOUTH IN THE MORNING Authorizing Provider: JANELLE PIMENTEL User: BRODY SQUIRES ------ * [facility] 4:05 PM EDTPending Prescriptions: Disp Refills Trulance 3 MG Oral Tablet (Plecanatide) 100 Ta*3 Sig: TAKE 1 TABLET BY MOUTH IN THE MORNING Signed Prescriptions: Disp Refills Anoro Ellipta 62.5-25 MCG/ACT Inhalation A*180 Ea*3 Sig: INHALE 1 INHALATION BY MOUTH IN THE MORNING Authorizing Provider: JANELLE PIMENTEL Ordering User: BRODY SQUIRES ------ * Telephone Encounter - Brody Squires RP - 12/24/2023 4:05 PM EDT [facility] is currently not authorized to approve refills for the pended medication(s) per refill protocol. Please approve if appropriate. Thanks, Brody Squires, PharmD Clinical Pharmacist [facility] ([facility]) [phone] 12/24/2023 4:05 PM * Telephone Encounter - Brody Squires RP - 12/24/2023 4:04 PM EDT Pending Prescriptions: Disp Refills Trulance 3 MG Oral Tablet (Plecanatide) [*100 Ta*3 Sig: TAKE 1 TABLET BY MOUTH IN THE MORNING Last Visit: 11/25/2023 (in office), Visit date not found (telemedicine) Next Visit: 05/28/2024 If no future appointments scheduled, and last appointment is greater than a year ago, please schedule patient for a follow-up appointment Last date the medication was ordered: 02/25/23 Pharmacy: [facility] Is this request for a controlled substance? No Urine Drug Screen:No results found for this or any previous visit. Patient Phone Numbers Labs: Lab Results Component Value Date/Time CREAT 1.2 (H) 10/08/2023 11:54 AM POTASSIUM 3.9 10/08/2023 11:54 AM TSH 2.02 06/16/2019 12:00 AM LDLCALC 33 10/08/2023 11:54 AM LDLCALC 57 04/19/2021 12:00 AM LDLCALC 33 09/12/2017 07:14 AM ALT 32 06/24/2023 09:44 AM HGBA1C 5.9 (H) 11/25/2023 10:47 AM documented in this encounter Plan of Treatment Upcoming Encounters Date Type Department Care Team (Late st Contact Info) Description 05/28/2024 10:20 AM EST Office Visit [facility] [address] [place] [facility] [place] [phone] Janelle Pimentel MD [address] [place] [facility] [place] [address] 09/08/2024 1:30 PM EDT Office Visit Neurology [facility] [place] [address] [place] [address] Marissa Farris PA-C [address] [place] [address] Scheduled Procedures Name Priority Associated Diagnoses Date/Ti [...] 06/05/2024 06/05/2022, 06/05/2022 CKD HGB USE SMARTSET 90751 06/24/202406/24, 06/24/2023, 06/12/2022, Additional history exists Adult Wellness Visit 07/05/2024 07/05/2023, 10/16/19 CKD PHOS USE SMARTSET 99045 10/07/2024 10/08/2023, 0 02/08/2023 Albumin/Creatinine Ratio 11/24/2024 024, 10/08/2023, 02/08/2023, Additional history exists Depression Screening 11/24/2024 11/25/2023 O2 ASSESSMENT COMPLETED IN PAST YEAR FOR COPD 11/24/2024 11/25/2023 Colonoscopy 05/25/2027 05/25/2022, 05/13, 05/24/2022, Additional history exists Colorectal Cancer Screening 05/25/2027 Lipid Panel 10/07/2028 10/08/2023, 05/15, 04/19/2021, Additional history exists Pneumococcal Vaccine: 65+ Years Completed 09/24/2018, 03/07/2017 VITAMIN D LEVEL ONCE IN A LIFETIME-USE SMARTSET# [id number] Completed 02/23/2022 RETIRED - COLONOSCOPY-EVERY 5 YRS [...] (HCC) Chronic airway obstruction, not elsewhere classified documented in this encounter Care Teams Auto Polisher Relationship Specialty Start Date End Date Janelle Pimentel MD [address] [place] [address] PCP - General Internal Medicine 02/19/22 documented as of this encounter
--- OUTSIDE RECORDS SUMMARY | 2024-02-27 13:31 | External Medical Summary | Summary of Care ---
Author Name Unknown Organization [facility] Address [address] [place] [address] Phone [phone] Care Team Providers Care Police Booking Officer Name Role Phone Janelle Pimentel MD Primary Care Provider [phone] Reason for Visit * Reason Onset Date Comments Advice 12/24/2023 Encounter Details Date Type Department Care Team (Late st Contact Info) Description 12/24/2023 Telephone [facility] [address] [place] [address] Janelle Pimentel MD [address] [place] [address] Advice Allergies Active Allergy Reactions [...] as of this encounter (statuses as of 12/24/2023) Medications Medication Sig Dispensed Refills Start Date [...] two weeks.. 28 Patch 5 11/25/2023 Active DULoxetine HCl 60 MG Oral Capsule Delayed Release Particles (Cymbalta) Take 1 Capsule by mouth in the morning. Do not cut, crush or chew. 90 Capsule 3 12/24/2023 Active documented as of this encounter (statuses as of 12/24/2023) Active Problems Problem Noted Date Diagnosed Date [...] as of this encounter (statuses as of 12/24/2023) Resolved Problems Problem Noted Date Diagnosed Date Resolved Date COPD, mild 05/22/2022 09/19/2022 Overview: Per COPD GOLD Classification Hyperlipidemia 02/19/2022 05/22/2022 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 02/19/2022 05/22/2022 documented as of this encounter (statuses as of 12/24/2023) Immunizations Name Administration Dates Next Due Pneumococcal [...] No 06/27/2023 Does the household have a veterans affairs medical centerr source of income? [...] Description 05/28/2024 10:20 AM EST [facility] [address] [facility] [phone] Janelle Pimentel MD [address] [facility] [address] 09/08/2024 1:30 PM EDT Office Visit Neurology [facility] [place] [address] [facility] [place] [address] Marissa Farris PA-C [address] [facility] [place] [address] Scheduled Procedures Name Priority Associated Diagnoses Date/Ti [...] 06/05/2024 06/05/2022, 06/05/2022 CKD HGB USE SMARTSET 55038 06/24/202406/24, 06/24/2023, 06/12/2022, Additional history exists Adult Wellness Visit 07/05/2024 07/05/2023, 06/05/20 23 CKD PHOS USE SMARTSET 30568 10/07/2024 10/08/2023, 0 02/08/2023 Albumin/Creatinine Ratio 11/24/2024 024, 10/08/2023, 02/08/2023, Additional history exists Depression Screening 11/24/2024 11/25/2023 O2 ASSESSMENT COMPLETED IN PAST YEAR FOR COPD 11/24/2024 11/25/2023 Colonoscopy 05/25/2027 05/25/2022, 05/13, 05/24/2022, Additional history exists Colorectal Cancer Screening 05/25/2027 Lipid Panel 10/07/2028 10/08/2023, 05/15, 04/19/2021, Additional history exists Pneumococcal Vaccine: 65+ Years Completed 09/24/2018, 03/07/2017 VITAMIN D LEVEL ONCE IN A LIFETIME-USE SMARTSET# [id number] Completed 02/23/2022 RETIRED - COLONOSCOPY-EVERY 5 YRS [...] filedocumented as of this encounter Care Teams Police Booking Officer Relationship Specialty Start Date End Date Janelle Pimentel MD [address] [place] [address] PCP - General Internal Medicine 02/19/22 documented as of this encounter
--- OUTSIDE RECORDS SUMMARY | 2024-02-27 13:31 | External Medical Summary | Summary of Care ---
Author Name Unknown Organization [facility] Address [address] [place] [address] Phone [phone] Care Team Providers Care Client Service Manager Name Role Phone Janelle Pimentel MD Primary Care Provider [phone] Reason for Visit * Reason Onset Date Comments Advice 12/24/2023 Encounter Details Date Type Department Care Team (Late st Contact Info) Description 12/24/2023 Telephone [facility] [address] [place] [address] Janelle Pimentel MD [address] [place] [address] Advice Allergies Active Allergy Reactions [...] as of this encounter (statuses as of 12/25/2023) Medications Medication Sig Dispensed Refills Start Date [...] at bedtime. 90 Tablet 2 3 Active Trulance 3 MG Oral Tablet (Plecanatide) Take 3 mg by mouth in the morning. 90 Tablet 3 3 Active ProAir HFA 108 (90 Base) [...] or chew. 90 Capsule 3 4 Active Anoro Ellipta 62.5-25 MCG/ACT Inhalation Aerosol Powder Breath Activated (umeclidinium-vilan terol)Indications:b reathing Inhale 1 Puff by mouth in the morning. 90 Each 3 3 12/24/19 24 Discontinued documented as of this encounter (statuses as of 12/25/2023) Active Problems Problem Noted Date Diagnosed Date [...] as of this encounter (statuses as of 12/25/2023) Resolved Problems Problem Noted Date Diagnosed Date Resolved Date COPD, mild 05/22/2022 09/19/2022 Overview: Per COPD GOLD Classification Hyperlipidemia 02/19/2022 05/22/2022 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 02/19/2022 05/22/2022 documented as of this encounter (statuses as of 12/25/2023) Immunizations Name Administration Dates Next Due Pneumococcal [...] Does the household have a [facility] source [facility] income? (Household - for [...] encounter Miscellaneous Notes * Telephone Encounter - Jerri Leigh LPN [...] 05/28/2024 10:20 AM EST Office Visit [facility] [address] [place] [phone] Janelle Pimentel MD [address] [place] [address] 09/08/2024 1:30 PM EDT Office Visit [facility] [place] [address] [facility] [address] Marissa Farris PA-C [address] [facility] [place] [address] Scheduled Procedures Name Priority Associated Diagnoses Date/Ti [...] 06/05/2024 06/05/2022, 06/05/2022 CKD HGB USE SMARTSET 98313 06/24/202406/24, 06/24/2023, 06/12/2022, Additional history exists Adult Wellness Visit 07/05/2024 07/05/2023, 10/16/19 CKD PHOS USE SMARTSET 07319 10/07/2024 10/08/2023, 0 02/08/2023 Albumin/Creatinine Ratio 11/24/2024 024, 10/08/2023, 02/08/2023, Additional history exists Depression Screening 11/24/2024 11/25/2023 O2 ASSESSMENT COMPLETED IN PAST YEAR FOR COPD 11/24/2024 11/25/2023 Colonoscopy 05/25/2027 05/25/2022, 05/13, 05/24/2022, Additional history exists Colorectal Cancer Screening 05/25/2027 Lipid Panel 10/07/2028 10/08/2023, 05/15, 04/19/2021, Additional history exists Pneumococcal Vaccine: 65+ Years Completed 09/24/2018, 03/07/2017 VITAMIN D LEVEL ONCE IN A LIFETIME-USE SMARTSET# [id number] Completed 02/23/2022 RETIRED - COLONOSCOPY-EVERY 5 YRS [...] filedocumented as of this encounter Care Teams Client Service Manager Relationship Specialty Start Date End Date Janelle Pimentel MD [address] [place] [address] PCP - General Internal Medicine 02/19/22 documented as of this encounter
--- OUTSIDE RECORDS SUMMARY | 2024-02-27 13:31 | External Medical Summary | Summary of Care ---
Author Name Unknown Organization [facility] Address [address] [place] [address] Phone [phone] Care Team Providers Care Student Life Dean Name Role Phone Janelle Pimentel MD Primary Care Provider [phone] Reason for Visit * Reason Onset Date Comments Appointment 12/18/2023 Encounter Details Date Type Department Care Team (Late st Contact Info) Description 12/18/2023 Telephone [address]iology [address] [facility] [place] [phone] Margo Scales, RT (M) Appointment Allergies Active Allergy Reactions Criticality Noted Date [...] as of this encounter (statuses as of 12/18/2023) Medications Medication Sig Dispensed Refills Start Date [...] as of this encounter (statuses as of 12/18/2023) Active Problems Problem Noted Date Diagnosed Date [...] as of this encounter (statuses as of 12/18/2023) Resolved Problems Problem Noted Date Diagnosed Date Resolved Date COPD, mild 05/22/2022 09/19/2022 Overview: Per COPD GOLD Classification Hyperlipidemia 02/19/2022 05/22/2022 Systolic heart failure [place] freddy to idiopathic cardiomyopathy 02/19/2022 05/22/2022 documented as of this encounter (statuses as of 12/18/2023) Immunizations Name Administration Dates Next Due Pneumococcal [...] encounter Miscellaneous Notes * Telephone Encounter - Margo Scales RT (Jennifer) - 12/18/2023 4:06 PM EDT Name: Enma Goff Do you have any of the following: Pacemaker, stents, heart valves, aneurysm clips? No Have you ever worked with metal or have you ever gotten metal in your eyes? No Have you had a colonoscopy in the last 30 days? No On dialysis? No Do you have any dermals or body piercing's? No or ? Do you wear an insulin pump or diabetic monitor? No RT Saira (Jennifer) documented in this encounter Plan of Treatment Upcoming Encounters Date Type Department Care Team (Late st Contact Info) Description 12/19/2023 4:00 PM EDT Imaging Radiology [facility] [place] [address] [place] [address] 05/28/2024 10:20 AM EST [facility] [address] [facility] [phone] Janelle Pimentel MD [address] [facility] [address] 09/08/2024 1:30 PM EDT Office [facility] [place] [address] [facility] [address] Marissa Farris PA-C [address] [place] [address] Scheduled Procedures Name Priority Associated Diagnoses Date/Ti [...] 06/05/2024 06/05/2022, 06/05/2022 CKD HGB USE SMARTSET 51122 06/24/202406/24, 06/24/2023, 06/12/2022, Additional history exists Adult Wellness Visit 07/05/2024 07/05/2023, 10/16/19 CKD PHOS USE SMARTSET 82913 10/07/2024 10/08/2023, 0 02/08/2023 Albumin/Creatinine Ratio 11/24/2024 024, 10/08/2023, 02/08/2023, Additional history exists Depression Screening 11/24/2024 11/25/2023 O2 ASSESSMENT COMPLETED IN PAST YEAR FOR COPD 11/24/2024 11/25/2023 Colonoscopy 05/25/2027 05/25/2022, 05/13, 05/24/2022, Additional history exists Colorectal Cancer Screening 05/25/2027 Lipid Panel 10/07/2028 10/08/2023, 05/15, 04/19/2021, Additional history exists Pneumococcal Vaccine: 65+ Years Completed 09/24/2018, 03/07/2017 VITAMIN D LEVEL ONCE IN A LIFETIME-USE SMARTSET# [id number] Completed 02/23/2022 RETIRED - COLONOSCOPY-EVERY 5 YRS [...] filedocumented as of this encounter Care Teams Student Life Dean Relationship Specialty Start Date End Date Janelle Pimentel MD [address] [place] [address] PCP - General Internal Medicine 02/19/22 documented as of this encounter
--- OUTSIDE RECORDS SUMMARY | 2024-02-27 13:31 | External Medical Summary | Summary of Care ---
Author Name Unknown Organization [facility] Address [address] [place] [address] Phone [phone] Care Team Providers Care Merchandise Worker Name Role Phone Janelle Pimentel MD Primary Care Provider [phone] Reason for Visit * Reason Comments Follow Up Pt here for 4 month follow up Encounter Details Date Type Department Care Team (Latest Contact Info) Description 11/25/2023 10:20 AM EDT Office Visit [facility] [address] [place] [address] Janelle Pimentel MD [address] [place] [address] DDD (degenerative disc disease), lumbar*; HTN, goal below 140/90; History of TIA (transient ischemic attack); Hyperlipidemia, unspecified hyperlipidemia type; HTN, goal below 130/80; Stage 3b chronic kidney disease ([facility]); Sacroiliitis, not elsewhere classified ([facility]); SAMREEN (generalized anxiety disorder); Insomnia, unspecified type; Gastroesophageal reflux disease without esophagitis; COPD, group A, by GOLD 2017 classification ([facility]); Hyperglycemia Allergies Active Allergy Reactions Criticality Noted Date [...] as of this encounter (statuses as of 11/25/2023) Medications Medication Sig Dispensed Refills Start Date [...] in the morning. 90 Tablet 11/25/2023 Active DULoxetine HCl 60 MG Oral Capsule Delayed Release Particles (Cymbalta) Take 1 Capsule by mouth in the morning. Do not cut, crush or chew. 90 Capsule 11/25/2023 Active hydrOXYzine HCl 25 MG Oral [...] THE TABLET Strength: 40 mg. 90 Tablet 11/25/2023 Active Zolpidem Tartrate 5 MG Oral Tablet (Ambien) Take 1 Tablet by mouth at bedtime as needed for Sleep. 30 Tablet 11/25/2023 Active hydroCHLOROthiazide 12.5 MG Oral TabletIndications:H TN, goal below 140/90 Take 1 Tablet by mouth in the morning. 90 Tablet 11/25/2023 Active Albuterol Sulfate HFA 108 (90 Base) MCG/ACT Inhalation Aerosol Solution Inhale 2 Puffs by mouth every 6 hours as needed (SOB). 18 g 11/25/2023 Active Atorvastatin Calcium 40 MG Oral [...] a day for two weeks.. 28 Patch 11/25/2023 Active Methocarbamol 500 MG Oral Tablet (Robamol) TAKE ONE TABLET BY MOUTH EVERY MORNING AND ONE TABLET BEFORE BEDTIME 180 Tablet 2 02/19/2023 4 Discontinue d(Refill) Albuterol Sulfate HFA 108 (90 Base) MCG/ACT Inhalation Aerosol Solution Inhale 2 Puffs by mouth every 6 hours as needed (SOB). 18 g 5 07/25/2023 4 Discontinue d(Refill) hydroCHLOROthiazide 12.5 MG Oral TabletIndications:H TN, goal below 140/90 Take 1 Tablet by mouth in the morning. 07/29/2023 4 Discontinue d(Refill) Zolpidem Tartrate 5 MG Oral Tablet (Ambien) Take 1 Tablet by mouth at bedtime as needed for Sleep. 30 Tablet 3 08/05/2023 4 Discontinue d(Refill) Cetirizine HCl 10 MG Oral Tablet (ZyrTEC) Take 1 Tablet by mouth in the morning. 90 Tablet 2 08/26/2023 4 Discontinue d(Refill) Pantoprazole Sodium 40 MG Oral Tablet Delayed Release (Protonix) TAKE 1 TABLET BY MOUTH IN THE MORNING 1/2 HOUR BEFORE THE FIRST MEAL OF THE DAY. DO NOT CRUSH, SPLIT OR CHEW THE TABLET 70 Tablet 4 09/09/2023 4 Discontinue d(Refill) Atorvastatin Calcium 40 MG Oral Tablet (Lipitor)Indication s:History of TIA (transient ischemic attack),Hyperlipide josep, unspecified hyperlipidemia type TAKE 1 TABLET BY MOUTH IN THE MORNING 100 Tablet 09/25/2023 4 Discontinue d(Refill) amLODIPine Besylate 2.5 MG Oral Tablet (Norvasc) TAKE 1 TABLET BY MOUTH EVERY NIGHT AT BEDTIME 100 Tablet 2 10/04/2023 4 Discontinue d(Refill) hydrOXYzine HCl 25 MG Oral Tablet TAKE 1 TABLET BY MOUTH 3 TIMES DAILY - IN THE MORNING, AT NOON, AND BEFORE BEDTIME 300 Tablet 1 10/31/2023 4 Discontinue d(Refill) DULoxetine HCl 60 MG Oral Capsule Delayed Release Particles (Cymbalta) Take 1 Capsule by mouth in the morning. Do not cut, crush or chew. 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 02/19/2022 05/22/2022 documented as of this encounter (statuses as of 11/25/2023) Immunizations Name Administration Dates Next Due Pneumococcal [...] Answer Date Recorded PHQ Adult Total Score 1 10/15/2022 Hunger Vital Sign Answer Date Recorded Within [...] Sign Reading Time Taken Comments Blood Pressure 128/80 11/25/2023 10:15 AM EDT Pulse 69 11/25/2023 10:15 AM EDT Temperature 36.9 C (98.4 F) 11/25/2023 10:15 AM E DT Respiratory Rate 18 11/25/2023 10:15 AM EDT Oxygen Saturation 99% 11/25/2023 10:15 AM EDT Inhaled Oxygen Concentration - - Weight 65.6 kg (144 lb 9.6 oz) 11/25/2023 10:15 AM EDT Height - - Body Mass Index 27.55 03/25/2023 12:40 PM EST documented in this encounter Progress Notes * Janelle Pimentel MD - 11/25/2023 10:24 AM EDT Subjective Enma Goff is a 73 year old female. Chief Complaint Patient presents with Follow Up Pt here for 4 month follow up HPI: Here for 4 mo rotuine Known chronic back issue, s/p lumbar injection in jul( 2nd time this year) which worked well so far No buttock pain , gait is much better F/u with chiropractor Known neck surgery hx , stable Chronic sacroliliac pain , Chronic gait issue, seems better after sciatica is better F/u with pain medicine for injections Cymbalta 60 mg - helping Hypertension , hx of TIA , CKD stage 3, s/p nephrectomy , COPD, smoking Taking medication as prescribed, see med list. No medication side effects noted. Advised patient tokeep healthy life style, regular exercise with good diet, holger. low sodium diet. And also check BP at home too. Denies associated chest discomfort, chest heaviness, chest pressure, edema, palpitations and shortness of breath only on exertion Taking anoro, albuterol prn use Severe constipation , much better, taking trulance daily , increased water intake Also ok to take OTC prn use Insomnia ,ambien prn again, 5 mg GERD, protonix daily Anxiety , cymbalta Osteoporosis, Vt D iemr and fosamax recent blood tests showed hyperglycemia ( but it non fasting) Will get hba1c to rule out DM PMH: Patient Active Problem List Diagnosis Gastroesophageal reflux disease without esophagitis HTN, goal below 130/80 Cervical spinal stenosis DDD (degenerative disc disease), lumbar Family history of premature CAD S/p nephrectomy Gait difficulty Tremor History of TIA (transient ischemic attack) Hoarseness of voice History of renal cell cancer Peripheral polyneuropathy Stage 3b chronic kidney disease ([facility]) Food insecurity COPD, group A, by GOLD 2017 classification ([facility]) Osteoporosis SAMREEN (generalized anxiety disorder) Sacroiliitis, not elsewhere classified ([facility]) Insomnia Constipation Current Outpatient Medications Medication Sig Dispense Refill Vitamin C 500 MG Oral Tablet (Ascorbic Acid) Take 1 Tablet by mouth. Vitamin E 450 MG (1000 UT) Oral Capsule Take 1 Capsule by mouth. D3-1000 25 MCG (1000 UT) Oral Capsule (Cholecalciferol) Take 1 Capsule by mouth in the morning. Elderberry 500 MG Oral Capsule Take 1 Capsule by mouth in the morning. Docusate Sodium 100 MG Oral Tablet Take 1 Tablet by mouth daily as needed. One-Daily Multi Vitamins Oral Tablet Take 1 Tablet by mouth in the morning. Echinacea 400 MG Oral Capsule Take 1 Capsule by mouth in the morning. Calcium Carb-Cholecalciferol 600-20 MG-MCG Oral Tablet Take by mouth. NATURAL SUPPLEMENT Take 2 Capsules by mouth in the morning and 2 Capsules before bedtime. Wellness Formula. traZODone HCl 100 MG Oral Tablet (Desyrel) Take 0.5 Tablets by mouth at bedtime. 90 Tablet 2 Trulance 3 MG Oral Tablet (Plecanatide) Take 3 mg by mouth in the morning. 90 Tablet 3 Anoro Ellipta 62.5-25 MCG/ACT Inhalation Aerosol Powder Breath Activated (umeclidinium-vilanterol) Inhale 1 Puff by mouth in the morning. 90 Each 3 ProAir HFA 108 (90 Base) MCG/ACT Inhalation Aerosol Solution Inhale 2 Puffs by mouth every 6 hours as needed for Wheezing. 54 g 3 Fluticasone Propionate 50 MCG/ACT Nasal Suspension (Flonase) Administer 2 Sprays into nostril in the morning. 48 mL 2 amLODIPine Besylate 2.5 MG Oral Tablet (Norvasc) Take 1 Tablet by mouth every night at bedtime. 100Tablet 3 Cetirizine HCl 10 MG Oral Tablet (ZyrTEC) Take 1 Tablet by mouth in the morning. 90 Tablet 3 DULoxetine HCl 60 MG Oral Capsule Delayed Release Particles (Cymbalta) Take 1 Capsule by mouth in the morning. Do not cut, crush or chew. 90 Capsule 3 hydrOXYzine HCl 25 MG Oral Tablet TAKE 1 TABLET BY MOUTH 3 TIMES DAILY - IN THE MORNING, AT NOON, AND BEFORE BEDTIME 300 Tablet 1 Methocarbamol 500 MG Oral Tablet (Robamol) TAKE ONE TABLET BY MOUTH EVERY MORNING AND ONE TABLET BEFORE BEDTIME 180 Tablet 2 Pantoprazole Sodium 40 MG Oral Tablet Delayed Release (Protonix) Take 1 Tablet by mouth in the morning. TAKE 1 TABLET BY MOUTH IN THE MORNING 1/2 HOUR BEFORE THE FIRST MEAL OF THE DAY. DO NOT CRUSH, SPLIT OR CHEW THE TABLET Strength: 40 mg. 90 Tablet 3 Zolpidem Tartrate 5 MG Oral Tablet (Ambien) Take 1 Tablet by mouth at bedtime as needed for Sleep. 30 Tablet 3 hydroCHLOROthiazide 12.5 MG Oral Tablet Take 1 Tablet by mouth in the morning. 90 Tablet 3 Albuterol Sulfate HFA 108 (90 Base) MCG/ACT Inhalation Aerosol Solution Inhale 2 Puffs by mouth every 6 hours as needed (SOB). 18 g 5 Atorvastatin Calcium 40 MG Oral Tablet (Lipitor) TAKE 1 TABLET BY MOUTH IN THE MORNING 100 Tablet 3 No current facility-administered medications for this visit. Past Medical History: Diagnosis Date Hyperlipidemia Hypertension Reflux esophagitis TIA (transient ischemic attack) 2017 Past Surgical History: Procedure Laterality Date BIOPSY OF UPPER NOSE/THROAT Left 06/04/2022 BIOPSY NASOPHARYNX SIMPLE performed by Etienne Lord MD at OR [facility] BREAST BIOPSY Left Benign COLONOSCOPY, DIAGNOSTIC (RECTUM) 05/24/2022 poor prep, repeat / COLONOSCOPY FLEXIBLE PROXIMAL DIAGNOSTIC performed by Lori Knapp DO at ENDOSCOPY [facility] COLONOSCOPY, DIAGNOSTIC (RECTUM) 05/25/2022 benign polyps, repeat 5 yrs / COLONOSCOPY FLEXIBLE PROXIMAL DIAGNOSTIC performed by Nasir Douglas MD at ENDOSCOPY [facility] CYSTOURETERO W/BIOPSY Left 07/04/2022 CYSTOURETHROSCOPY URETEROSCOPY with pyelogram performed by Alfred Childers MD [place] [facility] GA[facility]IC BYPASS FOR OBESITY INJECT DX/THER SUBSTANCE INTERLAMINAR LUMBAR/SACRAL W IMAGE GUIDE 08/07/2023 INJECTION SPINE LUMBAR OR SACRAL performed by Barber Robison DO at OR [facility] LUMBAR / SACRAL EPIDURAL, SINGLE LEVEL 02/27/2023 INJECTION TRANSFORAMINAL EPIDURAL LUMBAR OR SACRAL performed by Jose Gan DO at OR [facility] MISCELLANEOUS ORDER ([facility] ONLY) right kidney removal MISCELLANEOUS ORDER ([facility] ONLY) blood blot from head age 4 removed NASAL ENDOSCOPY, DIAGNOSTIC N/A 06/04/2022 NASAL SINUS ENDOSCOPY DIAGNOSTIC performed by Etienne Lord MD at OR [facility] PARATHYROID SCAN SESTAMIBI-GWV PARTIAL HYSTERECTOMY Review of patient's allergies indicates: Allergen Reactions Lisinopril Itching Other reaction(s): Shortness of breath, Swelling Naproxen Anaphylaxis Aspirin Other reaction(s): GI Intolerance, Other, Other Other reaction(s): GI Intolerance Pt not allowed to take since gastric bypass Pt not allowed to take since gastric bypass Pt not allowed to take since gastric bypass Pt not allowed to take since gastric bypass Influenza Virus Vaccine [Influenza Virus Vac Live Quad] Edema Other and Rash Penicillins Other (Please comment) Other reaction(s): Other, Other (See Comments) Mouth sores Mouth sores Mouth sores Mouth sores Wellbutrin [Bupropion] Neuro complications (Please comment) Family History Problem Relation Name Age of Onset Cancer Father Marc Goff Heart failure Father Marc Goff Hypertension Father Marc Goff Stroke Father Marc Goff Family Status Relation Status Fa (Not Specified) Social History Socioeconomic History Marital status: Spouse name: Not on file Number of children: Not on file Years of education: Not on file Highest education level: Not on file Occupational History Not on file Tobacco Use Smoking status: Former Current packs/day: 0.00 Types: Cigarettes Quit date: 10/01/2023 Years since quittin.1 Passive exposure: Past Smokeless tobacco: Never Vaping Use Vaping status: Former Substances: Nicotine Devices: Disposable Substance and Sexual Activity Alcohol use: Yes Comment: every night Drug use: Never Sexual activity: Not on file Other Topics Concern Not on file Social History Narrative Not on file Social Determinants of Health Financial Resource Strain: Low Risk (06/27/2023) Financial Resource Strain Do you have any trouble paying for your medications, or do you think you might in the future? (Adult - for ages 18 years and over): No Does your family have trouble paying for medicine? (Household - for ages 0-17 years): Not on file Food Insecurity: No Food Insecurity (06/27/2023) Food Insecurity Do you need food for this week? (Adult - for ages 18 years and over): No Are you able to get enough food for your family? (Household - for ages 0-17 years): Not on file Does your family need food this week? (Household - for ages 0-17 years): Not on file Do you always have enough food for your family? (Household - for ages 0-17 years): Not on file Recent Concern: Food Insecurity - Food Insecurity Present (06/27/2023) Hunger Vital Sign Worried About Running Out of Food in the Last Year: Sometimes true Ran Out of Food in the Last Year: Sometimes true Transportation Needs: No Transportation Needs (06/27/2023) Transportation Needs Do you have trouble getting a ride to medical visits or work? (Adult - for ages 18 years and over):Never True Does your family have a hard time getting a ride to doctors visits? (Household - for ages 0-17 years): Not on file Has lack of transportation kept you from medical appointments, meetings, work, or from getting things needed for daily living? Check all that apply. (Adult - for ages 18 years and over): Not on file Do you (or your family) have trouble finding or paying for a ride (transportation)? (Household - for ages 0-17 years): Not on file Social Connections: Unknown (09/28/2023) Received from [facility] Short Social Needs Screening - Social Connection Would you like help with any of the following needs: food, medicine/medical supplies, transportation, loneliness, housing or utilities?: Not on file Housing Stability: Low Risk (06/27/2023) Housing Stability Do you currently live in a fdc or have no steady place to sleep at night? (Adult - for ages 18 years and over): No Do you think you are at risk of becoming homeless? (Adult - for ages 18 years and over): No Does your family worry about paying for your home or becoming homeless? (Household - for ages 0-17 years): Not on file Are you homeless or worried that you might be in the future? (Adult - for ages 18 years and over): Not on file Are you (or your family) homeless or worried that you might be in the future? (Household - for ages0-17 years): Not on file Review of Systems Constitutional: Positive for activity change (better). Negative for appetite change, chills, diaphoresis, fatigue, fever and unexpected weight change. HENT: Positive for congestion (mild occ). Negative for postnasal drip and rhinorrhea. Eyes: Negative for visual disturbance. Respiratory: Negative. Negative for cough, chest tightness and shortness of breath. Cardiovascular: Negative. Gastrointestinal: Positive for constipation (milder). Negative for abdominal distention, abdominal pain, diarrhea, nausea and vomiting. Endocrine: Negative. Musculoskeletal: Positive for arthralgias. Negative for gait problem. Allergic/Immunologic: Positive for environmental allergies. Neurological: Negative for dizziness, weakness, light-headedness, numbness and headaches. Psychiatric/Behavioral: Positive for dysphoric mood and sleep disturbance. Negative for agitation and behavioral problems. The patient is nervous/anxious. Objective BP 128/80 | Pulse 69 | Temp 36.9 C (98.4 F) (Tympanic) | Resp 18 | Wt 65.6 kg (144 lb 9.6 oz) |SpO2 99% | BMI 27.55 kg/m | BSA 1.68 m Physical Exam Constitutional: General: She is not in acute distress. Appearance: Normal appearance. She is not ill-appearing, toxic-appearing or diaphoretic. HENT: Head: Normocephalic and atraumatic. Nose: Nose normal. Eyes: Extraocular Movements: Extraocular movements intact. Cardiovascular: Rate and Rhythm: Normal rate and regular rhythm. Pulses: Normal pulses. Heart sounds: Normal heart sounds. No murmur heard. Pulmonary: Effort: Pulmonary effort is normal. No respiratory distress. Breath sounds: Normal breath sounds. No stridor. No wheezing, rhonchi or rales. Chest: Chest wall: No tenderness. Musculoskeletal: Cervical back: Normal range of motion. Right lower leg: No edema. Left lower leg: No edema. Neurological: General: No focal deficit present. Mental Status: She is alert and oriented to person, place, and time. Cranial Nerves: No cranial nerve deficit. Psychiatric: Behavior: Behavior normal. Comments: Mild anxiety ASSESSMENT/PLAN: HTN, goal below 140/90 - hydroCHLOROthiazide 12.5 MG Oral Tablet; Take 1 Tablet by mouth in the morning. History of TIA (transient ischemic attack) - Atorvastatin Calcium 40 MG Oral Tablet (Lipitor); TAKE 1 TABLET BY MOUTH IN THE MORNING Hyperlipidemia, unspecified hyperlipidemia type - Atorvastatin Calcium 40 MG Oral Tablet (Lipitor); TAKE 1 TABLET BY MOUTH IN THE MORNING Other orders - amLODIPine Besylate 2.5 MG Oral Tablet (Norvasc); Take 1 Tablet by mouth every night at bedtime. - Cetirizine HCl 10 MG Oral Tablet (ZyrTEC); Take 1 Tablet by mouth in the morning. - DULoxetine HCl 60 MG Oral Capsule Delayed Release Particles (Cymbalta); Take 1 Capsule by mouth in the morning. Do not cut, crush or chew. - hydrOXYzine HCl 25 MG Oral Tablet; TAKE 1 TABLET BY MOUTH 3 TIMES DAILY - IN THE MORNING, AT NOON, AND BEFORE BEDTIME - Methocarbamol 500 MG Oral Tablet (Robamol); TAKE ONE TABLET BY MOUTH EVERY MORNING AND ONE TABLETBEFORE BEDTIME - Pantoprazole Sodium 40 MG Oral Tablet Delayed Release (Protonix); Take 1 Tablet by mouth in the morning. TAKE 1 TABLET BY MOUTH IN THE MORNING 1/2 HOUR BEFORE THE FIRST MEAL OF THE DAY. DO NOT CRUSH, SPLIT OR CHEW THE TABLET Strength: 40 mg. - Zolpidem Tartrate 5 MG Oral Tablet (Ambien); Take 1 Tablet by mouth at bedtime as needed for Sleep. - Albuterol Sulfate HFA 108 (90 Base) MCG/ACT Inhalation Aerosol Solution; Inhale 2 Puffs by mouth every 6 hours as needed (SOB). Refilled meds F/u test Janelle Pimentel MD documented in this encounter Nursing Notes * Ara Brunner LPN - 11/25/2023 10:02 AM EDT Chief Complaint Patient presents with Follow Up Pt here for 4 month follow up documented in this encounter Plan of Treatment Upcoming Encounters Date Type Department Care Team (Late st Contact Info) Description 12/19/2023 4:00 PM EDT Imaging Radiology [facility], [address] [place] [address] 05/28/2024 10:20 AM EST Office Visit [facility] [address] [facility] [place] [id number] Janelle Pimentel MD [address] [facility] [place] [id number] 09/08/2024 1:30 PM EDT Office [facility] [place] [address] [facility] [address] Marissa Farris PA-C [address] [place] [id number] Pending Results Name Type Priority Associated Diagnoses Date /Time HEMOGLOBIN A1C Lab Routine Hyperglycemia 11/25/2023 10:47 AM EDT ALBUMIN / CREATININE RATIO, URINE Lab Routine HTN, goal below 140/90 11/25/2023 10:47 AM EDT Scheduled Orders Name Type Priority Associated Diagnoses Orde r Schedule HEMOGLOBIN A1C Lab Routine Hyperglycemia Expected: 11/25/2023 (Approximate), Expires: 11/24/2024 ALBUMIN / CREATININE RATIO, URINE Lab Routine HTN, goal below 140/90 Expected: 11/25/2023 (Approximate), Expires: 11/24/2024 Scheduled Procedures Name Priority Associated Diagnoses Date/Ti me COLONOSCOPY FLEXIBLE PROXIMAL DIAGNOSTIC Recall History of colon polyps Health Maintenance Due Date Last Done Comments Alpha-1 Antitrypsin 01/30/1970 Hepatitis C Screening 01/30/1970 Cologuard 01/30/1997 Fecal Occult Blood Test 01/30/1997 Sigmoidoscopy 01/30/1997 *BISPHONATE OR OTHER ACCEPTABLE MEDICATION NEEDED FOR OSTEOPOROSIS (REFER TO SMARTSET #1146) 05/24/2023 *CXR OR CT FOR COPD EVER 11/24/2023 Influenza Vaccine (FLU shot) (#1) 2024 GFR 04/09/2024 10/08/2023, 07/12, 06/24/2023, Additional history exists Mammogram 05/17/2024 05/17/2023, 04/13, 05/08/2022, Additional history exists DXA Scan 06/05/2024 06/05/2022, 06/05/2022 CKD HGB USE SMARTSET 30213 06/24/202406/24, 06/24/2023, 06/12/2022, Additional history exists Albumin/Creatinine Ratio 10/07/2024 024, 02/08/2023, 02/23/2022 CKD PHOS USE SMARTSET [id number] 10/07/2024 10/08/2023, 0 02/08/2023 Depression Screening 11/24/2024 11/25/2023 O2 ASSESSMENT COMPLETED IN PAST YEAR FOR COPD 11/24/2024 11/25/2023 Colonoscopy 05/25/2027 05/25/2022, 05/13, 05/24/2022, Additional history exists Colorectal Cancer Screening 05/25/2027 Lipid Panel 10/07/2028 10/08/2023, 05/15, 04/19/2021, Additional history exists Pneumococcal Vaccine: 65+ Years Completed 09/24/2018, 03/07/2017 VITAMIN D LEVEL ONCE IN A LIFETIME-USE SMARTSET# [id number] Completed 02/23/2022 RETIRED - COLONOSCOPY-EVERY 5 YRS [...] as of this encounter Visit Diagnoses Diagnosis DDD (degenerative disc disease), lumbar- Primary Degeneration of lumbar or lumbosacral intervertebral disc HTN, goal below 140/90 Unspecified essential hypertension History of TIA (transient ischemic attack) Transient ischemic attack (TIA), and cerebral infarction without residual deficits Hyperlipidemia, unspecified hyperlipidemia type HTN, goal below 130/80 Unspecified essential hypertension Stage 3b chronic kidney disease (HCC) Sacroiliitis, not elsewhere classified (HCC) Sacroiliitis, not elsewhere classified SAMREEN (generalized anxiety disorder) Generalized anxiety disorder Insomnia, unspecified type Gastroesophageal reflux disease without esophagitis Esophageal reflux COPD, group A, by GOLD 2017 classification (HCC) Hyperglycemia Other abnormal glucose documented in this encounter Care Teams Merchandise Worker Relationship Specialty Start Date End Date Janelle Pimentel MD [address] [place] [id number] PCP - General Internal Medicine 02/19/22 documented as of this encounter"
--- OUTSIDE RECORDS SUMMARY | 2024-02-27 13:31 | External Medical Summary | Summary of Care ---
Author Name Unknown Organization [facility] Address [address] [place] [address] Phone [phone] Care Team Providers Care Manager Environmental Health And Safety Name Role Phone Janelle Pimentel MD Primary Care Provider [phone] Encounter Details Date Type Department Care Team (Late st Contact Info) Description 12/24/2023 Refill [facility] [address] [place] [address] Janelle Pimentel MD [address] [place] [address] Allergies Active Allergy Reactions Criticality [...] 3 11/25/2023 Active hydroCHLOROthiazide 12.5 MG Oral TabletIndications:H [...] or chew. 90 Capsule 3 12/24/2023 Active DULoxetine HCl 60 MG Oral Capsule Delayed Release Particles (Cymbalta) Take 1 Capsule by mouth in the morning. Do not cut, crush or chew. 90 Capsule 3 11/25/2023 4 Discontinue d(Refill) documented as [...] Encounter - Janelle Pimentel MD - 12/24/2023 3:30 PM EDTSigned Prescriptions: Disp Refills DULoxetine HCl 60 MG Oral Capsule Delayed *90 Cap*3 Sig: Take 1 Capsule by mouth in the morning. Do not cut, crush or chew.Authorizing Provider: JANELLE PIMENTEL--------- * Telephone Encounter - Ara Brunner LPN - 12/24/2023 3:25 PM EDT Did you pend patient's preferred pharmacy and medication before forwarding?yes Pharmacy: [facility] ([facility] Pending Prescriptions: Disp Refills DULoxetine HCl 60 MG Oral Capsule Delayed*90 Cap*3 Sig: Take 1 Capsule by mouth in the morning. Do not cut, crush or chew. Last Visit: 11/25/2023 (in office), Visit date not found (telemedicine) Next Visit: 05/28/2024 If no future appointments scheduled, and last appointment is greater than a year ago, please schedule patient for a follow-up appointment Last date the medication was ordered: 11/25/2023 Is this request for a controlled substance?No Urine Drug Screen:No results found for this [...] EST Office Visit [facility] [address] [place] [facility] [place] [address] [facility]el [facility] [address] [facility] [address] 09/08/2024 1:30 PM EDT Office Visit Neurology [facility] [place] [address] [facility] [place] [address] Marissa Farris PA-C [address] [facility] [place] [address] Scheduled Procedures Name Priority Associated Diagnoses Date/Ti [...] 06/05/2024 06/05/2022, 06/05/2022 CKD HGB USE SMARTSET 71627 06/24/202406/24, 06/24/2023, 06/12/2022, Additional history exists Adult Wellness Visit 07/05/2024 07/05/2023, 10/16/19 CKD PHOS USE SMARTSET 94405 10/07/2024 10/08/2023, 0 02/08/2023 Albumin/Creatinine Ratio 11/24/2024 024, 10/08/2023, 02/08/2023, Additional history exists Depression Screening 11/24/2024 11/25/2023 O2 ASSESSMENT COMPLETED IN PAST YEAR FOR COPD 11/24/2024 11/25/2023 Colonoscopy 05/25/2027 05/25/2022, 05/13, 05/24/2022, Additional history exists Colorectal Cancer Screening 05/25/2027 Lipid Panel 10/07/2028 10/08/2023, 05/15, 04/19/2021, Additional history exists Pneumococcal Vaccine: 65+ Years Completed 09/24/2018, 03/07/2017 VITAMIN D LEVEL ONCE IN A LIFETIME-USE SMARTSET# [id number] Completed 02/23/2022 RETIRED - COLONOSCOPY-EVERY 5 YRS [...] filedocumented as of this encounter Care Teams Manager Environmental Health And Safety Relationship Specialty Start Date End Date Janelle Pimentel MD [address] [place] [address] PCP - General Internal Medicine 02/19/22 documented as of this encounter
--- OUTSIDE RECORDS SUMMARY | 2024-02-27 13:32 | External Medical Summary | Summary of Care ---
Author Name Unknown Organization [facility] Address [address] [place] [address] Phone [phone] Care Team Providers Care Music Video Director Name Role Phone Janelle Pimentel MD Primary Care Provider [phone] Reason for Visit * Reason Comments Outpatient Testing Encounter Details Date Type Department Care Team (Late st Contact Info) Description 11/25/2023 11:00 AM EDT Laboratory Laboratory, [place] [address] [place] [address] [place] [address] [place] [address] Hyperglycemia; HTN, goal below 140/90 Allergies Active Allergy [...] Tablet 11/25/2023 Active hydroCHLOROthiazide 12.5 MG Oral TabletIndications:HTN [...] No 06/27/2023 Does the household have a [facility] source of income? (Household - for [...] on file documented as of this encounter Plan of Treatment Upcoming Encounters Date Type Department Care Team (Late st Contact Info) Description 12/19/2023 4:00 PM EDT Imaging Radiology [facility] [address] [place] [address] 05/28/2024 10:20 AM EST Office Visit [facility] [address] [place] [phone] Janelle Pimentel MD [address] [place] [phone] 09/08/2024 1:30 PM EDT Office Visit Neurology [facility] [place] [address] [facility] [place] [address] Marissa Farris PA-C [address] [place] [address] Pending Results Name Type Priority Associated Diagnoses Date /Time HEMOGLOBIN A1C Lab Routine Hyperglycemia 11/25/2023 10:47 AM EDT ALBUMIN / CREATININE RATIO, URINE Lab Routine HTN, goal below 140/90 11/25/2023 10:47 AM EDT Scheduled Procedures Name Priority Associated Diagnoses Date/Ti [...] 06/05/2024 06/05/2022, 06/05/2022 CKD HGB USE SMARTSET 99995 06/24/202406/24, 06/24/2023, 06/12/2022, Additional history exists Albumin/Creatinine Ratio 10/07/2024 024, 02/08/2023, 02/23/2022 CKD PHOS USE SMARTSET 71961 10/07/2024 10/08/2023, 0 02/08/2023 Depression Screening 11/24/2024 11/25/2023 O2 ASSESSMENT COMPLETED IN PAST YEAR FOR COPD 11/24/2024 11/25/2023 Colonoscopy 05/25/2027 05/25/2022, 05/13, 05/24/2022, Additional history exists Colorectal Cancer Screening 05/25/2027 Lipid Panel 10/07/2028 10/08/2023, 05/15, 04/19/2021, Additional history exists Pneumococcal Vaccine: 65+ Years Completed 09/24/2018, 03/07/2017 VITAMIN D LEVEL ONCE IN A LIFETIME-USE SMARTSET# [id number] Completed 02/23/2022 RETIRED - COLONOSCOPY-EVERY 5 YRS [...] as of this encounter Visit Diagnoses Diagnosis Hyperglycemia Other abnormal glucose HTN, goal below 140/90 Unspecified essential hypertension documented in this encounter Care Teams Music Video Director Relationship Specialty Start Date End Date Janelle Pimentel MD [address] [place] [address] PCP - General Internal Medicine 02/19/22 documented as of this encounter
--- OUTSIDE RECORDS SUMMARY | 2024-02-27 13:32 | External Medical Summary | Summary of Care ---
Author Name Unknown Organization [facility] Address [address] [place] [address] Phone [phone] Care Team Providers Care Warrant Server Name Role Phone Janelle Pimentel MD Primary Care Provider [phone] Reason for Referral * Precert (Within 10 days (routine)) - Pending Review Specialty Diagnoses / Procedures Referred By Contac t Referred To Contact Radiology Diagnoses Compression fracture of thoracic vertebra with routine healing, unspecified thoracic vertebral level, subsequent encounter Procedures MRI T SPINE WO CONTRAST Barber Robison DO [address] [place] [address] Referral ID Status Reason Start Date Expiration Date V isits Requested Visits Authorized [id number] Pending Review 11/13/2023 999 999 Reason for Visit * Reason Onset Date Comments Test Results 11/12/2023 Unexpected or In determinate Result Encounter Details Date Type Department Care Team (Late st Contact Info) Description 11/12/2023 Telephone Laboratory, [place] [address] [place] [address] Barber Robison DO [address] [place] [address] Test Results (Unexpected or Indeterminate ... Allergies Active Allergy Reactions Criticality Noted Date [...] as of this encounter (statuses as of 11/15/2023) Medications Medication Sig Dispensed Refills Start Date [...] TABLET BEFORE BEDTIME 180 Tablet 2 02/19/2023 Active traZODone HCl 100 MG Oral Tablet (Desyrel) Take 0.5 Tablets by mouth at bedtime. 90 Tablet 2 02/19/2023 Active Trulance 3 MG Oral Tablet (Plecanatide) Take 3 mg by mouth in the morning. 90 Tablet 3 02/25/2023 Active Anoro Ellipta 62.5-25 MCG/ACT Inhalation Aerosol Powder Breath Activated (umeclidinium-vilant donna)Indications:anneliese athing Inhale 1 Puff by mouth in the morning. 90 Each 3 02/26/2023 Active Albuterol Sulfate HFA 108 (90 Base) MCG/ACT Inhalation Aerosol Solution Inhale 2 Puffs by mouth every 6 hours as needed (SOB). 18 g 5 07/25/2023 Active hydroCHLOROthiazide 12.5 MG Oral TabletIndications:HT N, goal below 140/90 Take 1 Tablet by mouth in the morning. 07/29/2023 Active ProAir HFA 108 (90 Base) MCG/ACT Inhalation Aerosol Solution Inhale 2 Puffs by mouth every 6 hours as needed for Wheezing. 54 g 3 08/05/2023 Active Zolpidem Tartrate 5 MG Oral Tablet (Ambien) Take 1 Tablet by mouth at bedtime as needed for Sleep. 30 Tablet 3 08/05/2023 Active Cetirizine HCl 10 MG Oral Tablet (ZyrTEC) Take 1 Tablet by mouth in the morning. 90 Tablet 2 08/26/2023 Active Pantoprazole Sodium 40 MG Oral Tablet Delayed Release (Protonix) TAKE 1 TABLET BY MOUTH IN THE MORNING 1/2 HOUR BEFORE THE FIRST MEAL OF THE DAY. DO NOT CRUSH, SPLIT OR CHEW THE TABLET 70 Tablet 4 09/09/2023 Active Additional Information Patient taking differently: HS, Reported on 10/08/2023 Atorvastatin Calcium 40 MG Oral Tablet (Lipitor)Indications :History of TIA (transient ischemic attack),Hyperlipidem ia, unspecified hyperlipidemia type TAKE 1 TABLET BY MOUTH IN THE MORNING 100 Tablet 09/25/2023 Active amLODIPine Besylate 2.5 MG Oral Tablet (Norvasc) TAKE 1 TABLET BY MOUTH EVERY NIGHT AT BEDTIME 100 Tablet 2 10/04/2023 Active Fluticasone Propionate 50 MCG/ACT Nasal Suspension (Flonase) SPRAY 2 SPRAYS INTO EACH NOSTRIL IN THE MORNING 48 mL 2 10/25/2023 Active hydrOXYzine HCl 25 MG Oral Tablet TAKE 1 TABLET BY MOUTH 3 TIMES DAILY - IN THE MORNING, AT NOON, AND BEFORE BEDTIME 300 Tablet 1 10/31/2023 Active DULoxetine HCl 60 MG Oral Capsule Delayed Release Particles (Cymbalta) Take 1 Capsule by mouth in the morning. Do not cut, crush or chew. 90 Capsule 3 11/04/2023 Active documented as of this encounter (statuses as of 11/15/2023) Active Problems Problem Noted Date Diagnosed Date [...] as of this encounter (statuses as of 11/15/2023) Resolved Problems Problem Noted Date Diagnosed Date Resolved Date COPD, mild 05/22/2022 09/19/2022 Overview: Per COPD GOLD Classification Hyperlipidemia 02/19/2022 05/22/2022 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 02/19/2022 05/22/2022 documented as of this encounter (statuses as of 11/15/2023) Immunizations Name Administration Dates Next Due Pneumococcal [...] encounter Miscellaneous Notes * Telephone Encounter - Bhavani Britt LPN - 11/15/2023 11:27 AM EDT Attempted to contact patient. No answer, left message for patient to return call to the office. * Addendum Note - Barber Robison DO - 11/13/2023 4:59 PM EDTAddended by: BARBER ROBISON on: 11/13/2023 04:59 PM Modules accepted: Orders * Telephone Encounter - Myra Burkett OSA - 11/12/2023 7:06 PM EDT Hello- The radiologist discovered an unexpected or indeterminate finding on Enma Rodriguez pert ([id number]) and asks that you review the following report. IMPRESSION 1. Suggestion of acute/subacute mild compression fractures involving T11 and possibly T10 vertebralbodies, suboptimally assessed on the current exam. Consider dedicated thoracic MRI for further assessment, as clinically indicated. 2. Ill-defined T2/STIR hyperintense signal involving S1 and S2 vertebral bodies noted, nonspecific finding which could represent sacral insufficiency 3. Degenerative changes, most conspicuous at L4-5. Refer to the detailed report above. Study Type:MRI L SPINE WO CONTRAST Date of Study: 11/06/2023 Please respond to this encounter to acknowledge receipt of this message and take responsibility to ensure this report is reviewed. Thank you, RENNY Tiwari Client Service Rep [facility] documented in this encounter Plan of Treatment Upcoming Encounters Date Type Department Care Team (Late st Contact Info) Description 11/25/2023 10:20 AM EDT Office [facility] [address] [facility] [address] Janelle Pimentel [facility] [address] [facility] [address] 09/08/2024 1:30 PM EDT Office Visit [facility] [place] [address] [facility] [address] Marissa Farris PA-C [address] [place] [address] Scheduled Orders Name Type Priority Associated Diagnoses Orde r Schedule MRI T SPINE WO CONTRAST Medical Imaging Routine Compression fracture of thoracic vertebra with routine healing, unspecified thoracic vertebral level, subsequent encounter Ordered: 11/13/2023 Scheduled Procedures Name Priority Associated Diagnoses Date/Ti me COLONOSCOPY FLEXIBLE PROXIMAL DIAGNOSTIC Recall History of colon polyps Health Maintenance Due Date Last Done Comments Alpha-1 Antitrypsin 01/30/1970 Hepatitis C Screening 01/30/1970 Cologuard 01/30/1997 Fecal Occult Blood Test 01/30/1997 Sigmoidoscopy 01/30/1997 *BISPHONATE OR OTHER ACCEPTABLE MEDICATION NEEDED FOR OSTEOPOROSIS (REFER TO SMARTSET #1146) 05/24/2023 Depression Screening 10/16/2023 10/15/2022 Influenza Vaccine (FLU shot) (#1) 2024 GFR 04/09/2024 10/08/2023, 07/12, 06/24/2023, Additional history exists Mammogram 05/17/2024 05/17/2023, 04/13, 05/08/2022, Additional history exists DXA Scan 06/05/2024 06/05/2022, 06/05/2022 CKD HGB USE SMARTSET 04526 06/24/202406/24, 06/24/2023, 06/12/2022, Additional history exists Albumin/Creatinine Ratio 10/07/2024 024, 02/08/2023, 02/23/2022 CKD PHOS USE SMARTSET 73001 10/07/2024 10/08/2023, 0 02/08/2023 O2 ASSESSMENT COMPLETED IN PAST YEAR FOR COPD 10/07/2024 10/08/2023 Colonoscopy 05/25/2027 05/25/2022, 05/13, 05/24/2022, Additional history exists Colorectal Cancer Screening 05/25/2027 Lipid Panel 10/07/2028 10/08/2023, 05/15, 04/19/2021, Additional history exists Pneumococcal Vaccine: 65+ Years Completed 09/24/2018, 03/07/2017 VITAMIN D LEVEL ONCE IN A LIFETIME-USE SMARTSET# [id number] Completed 02/23/2022 RETIRED - COLONOSCOPY-EVERY 5 YRS [...] as of this encounter Visit Diagnoses Diagnosis Compression fracture of thoracic vertebra with routine healing, unspecified thoracic vertebral level, subsequent encounter- Primary documented in this encounter Care Teams Warrant Server Relationship Specialty Start Date End Date Janelle Pimentel MD [address] [place] [address] PCP - General Internal Medicine 02/19/22 documented as of this encounter
--- OUTSIDE RECORDS SUMMARY | 2024-02-27 13:32 | External Medical Summary | Summary of Care ---
Author Name Unknown Organization [facility] Address [address] [place] [address] Phone [phone] Care Team Providers Care Beer Maker Name Role Phone Janelle Pimentel MD Primary Care Provider [phone] Reason for Referral * Precert (Within 10 days (routine)) - Pending Review Specialty Diagnoses / Procedures Referred By Contac t Referred To Contact Radiology Diagnoses Compression fracture of thoracic vertebra with routine healing, unspecified thoracic vertebral level, subsequent encounter Procedures MRI T SPINE WO CONTRAST Barber Robison DO [address] [place] [address] Referral ID Status Reason Start Date Expiration Date V isits Requested Visits Authorized [id number] Pending Review 11/13/2023 999 999 Reason for Visit * Reason Onset Date Comments Test Results 11/12/2023 Unexpected or In determinate Result Encounter Details Date Type Department Care Team (Late st Contact Info) Description 11/12/2023 Telephone Laboratory, [place] [address] [place] [address] Barber Robison DO [address] [place] [address] Test Results (Unexpected or Indeterminate [...] as of this encounter (statuses as of 11/13/2023) Medications Medication Sig Dispensed Refills Start Date [...] as of this encounter (statuses as of 11/13/2023) Active Problems Problem Noted Date Diagnosed Date [...] as of this encounter (statuses as of 11/13/2023) Resolved Problems Problem Noted Date Diagnosed Date Resolved Date COPD, mild 05/22/2022 09/19/2022 Overview: Per COPD GOLD Classification Hyperlipidemia 02/19/2022 05/22/2022 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 02/19/2022 05/22/2022 documented as of this encounter (statuses as of 11/13/2023) Immunizations Name Administration Dates Next Due Pneumococcal [...] encounter Miscellaneous Notes * Addendum Note - Barber Robison DO - 11/13/2023 4:59 PM EDTAddended by: BARBER ROBISON on: 11/13/2023 04:59 PM Modules accepted: Orders * Telephone Encounter - Myra Burkett OSA - 11/12/2023 7:06 PM EDT Hello- The radiologist discovered an unexpected or indeterminate finding on Enma Goff ([id number]) and asks that you review the following [...] reviewed. Thank you, RENNY Tiwari Client Service [facility] documented in this encounter Plan of Treatment Upcoming Encounters Date Type Department Care Team (Late st Contact Info) Description 11/25/2023 10:20 AM EDT Office Visit [place] [address] [place] [facility] [place] [address] Janelle Pimentel MD [address] [place] [address] 09/08/2024 1:30 PM EDT Office Visit Neurology [facility] [address] [facility], [place] [address] Marissa Farris PA-C [address] [facility] [place] [address] Scheduled Orders Name Type Priority Associated Diagnoses [...] 06/05/2024 06/05/2022, 06/05/2022 CKD HGB USE SMARTSET 46856 06/24/202406/24, 06/24/2023, 06/12/2022, Additional history exists Albumin/Creatinine Ratio 10/07/2024 024, 02/08/2023, 02/23/2022 CKD PHOS USE SMARTSET 65288 10/07/2024 10/08/2023, 0 02/08/2023 O2 ASSESSMENT COMPLETED IN PAST YEAR FOR COPD 10/07/2024 10/08/2023 Colonoscopy 05/25/2027 05/25/2022, 05/13, 05/24/2022, Additional history exists Colorectal Cancer Screening 05/25/2027 Lipid Panel 10/07/2028 10/08/2023, 05/15, 04/19/2021, Additional history exists Pneumococcal Vaccine: 65+ Years Completed 09/24/2018, 03/07/2017 VITAMIN D LEVEL ONCE IN A LIFETIME-USE SMARTSET# 86385 Completed 02/23/2022 RETIRED - COLONOSCOPY-EVERY 5 YRS [...] Primary documented in this encounter Care Teams Beer Maker Relationship Specialty Start Date End Date Janelle Pimentel MD [address] [place] [address] PCP - General Internal Medicine 02/19/22 documented as of this encounter
--- OUTSIDE RECORDS SUMMARY | 2024-02-27 13:32 | External Medical Summary | Summary of Care ---
Author Name Unknown Organization [facility] Address [address] [facility] [place] [address] Phone [phone] Care Team Providers Care Mixer Driver Name Role Phone Janelle Pimentel MD Primary Care Provider [phone] Reason for Visit * Reason Onset Date Comments Appointment 11/05/2023 MRI Encounter Details Date Type Department Care Team (Late st Contact Info) Description 11/05/2023 Telephone [address] [facility] [place] [id number] Elizabeth Kim, RT (R) Appointment (/MRI) Allergies Active Allergy Reactions Criticality Noted Date [...] as of this encounter (statuses as of 11/05/2023) Medications Medication Sig Dispensed Refills Start Date [...] as of this encounter (statuses as of 11/05/2023) Active Problems Problem Noted Date Diagnosed Date [...] as of this encounter (statuses as of 11/05/2023) Resolved Problems Problem Noted Date Diagnosed Date Resolved Date COPD, mild 05/22/2022 09/19/2022 Overview: Per COPD GOLD Classification Hyperlipidemia 02/19/2022 05/22/2022 Systolic heart failure raj hayes to idiopathic cardiomyopathy 02/19/2022 05/22/2022 documented as of this encounter (statuses as of 11/05/2023) Immunizations Name Administration Dates Next Due Pneumococcal [...] encounter Miscellaneous Notes * Telephone Encounter - Elizabeth Kim RT (R) - 11/05/2023 1:04 PM EDT Name: Enma Goff Do you have any of the following: Pacemaker, stents, heart valves, aneurysm clips? No Have you ever worked with metal or have you ever gotten metal in your eyes? No Have you had a colonoscopy in the last 30 days? No On dialysis? No Do you have any dermals or body piercing's? No Do you wear an insulin pump or diabetic monitor? No Tattoos? No Knows to arrive at [address] ([place]ini) documented in this encounter Plan of Treatment Upcoming Encounters Date Type Department Care Team (Late st Contact Info) Description 11/06/2023 7:00 AM EDT Imaging Radiology [address], [place] [address] [place] [address] 11/25/2023 10:20 AM EDT Office Visit [facility] [address] [place] [address] Janelle Pimentel MD [address] [facility] [place] [address] 09/08/2024 1:30 PM EDT Office Visit [facility] [place] [facility] [address] Marissa Farris PA-C [facility] [place] [address] Scheduled Procedures Name Priority Associated Diagnoses Date/Ti me COLONOSCOPY FLEXIBLE PROXIMAL DIAGNOSTIC Recall History of colon polyps Health Maintenance Due Date Last Done Comments Alpha-1 Antitrypsin 01/30/1970 Hepatitis C Screening 01/30/1970 Cologuard 01/30/1997 Fecal Occult Blood Test 01/30/1997 Sigmoidoscopy 01/30/1997 *BISPHONATE OR OTHER ACCEPTABLE MEDICATION NEEDED FOR OSTEOPOROSIS (REFER TO SMARTSET #1146) 05/24/2023 Depression Screening 10/16/2023 10/15/2022 Influenza Vaccine (FLU shot) (Season Ended) 2024 GFR 04/09/2024 10/08/2023, 07/12, 06/24/2023, Additional history exists Mammogram 05/17/2024 05/17/2023, 04/13, 05/08/2022, Additional history exists DXA Scan 06/05/2024 06/05/2022, 06/05/2022 CKD HGB USE SMARTSET 00906 06/24/202406/24, 06/24/2023, 06/12/2022, Additional history exists Albumin/Creatinine Ratio 10/07/2024 024, 02/08/2023, 02/23/2022 CKD PHOS USE SMARTSET 28241 10/07/2024 10/08/2023, 0 02/08/2023 O2 ASSESSMENT COMPLETED IN PAST YEAR FOR COPD 10/07/2024 10/08/2023 Colonoscopy 05/25/2027 05/25/2022, 05/13, 05/24/2022, Additional history exists Colorectal Cancer Screening 05/25/2027 Lipid Panel 10/07/2028 10/08/2023, 05/15, 04/19/2021, Additional history exists Pneumococcal Vaccine: 65+ Years Completed 09/24/2018, 03/07/2017 VITAMIN D LEVEL ONCE IN A LIFETIME-USE SMARTSET# [id number] Completed 02/23/2022 RETIRED - COLONOSCOPY-EVERY 5 YRS AGES 18-100 Discontinued 05/25/2022, 05/25/2022, 05/24/2022, Additional history exists COVID-19 Vaccine Discontinued DTaP,Tdap,and Td Vaccines Discontinued GARDASIL-HPV IMMUNIZATION SERIES Aged Out No longer eligible based on patient's age to complete this topic Hepatitis B Aged Out No longer eligi ble based on patient's age to complete this topic MENINGOCOCCAL (MENACTRA/MENVEO) Aged Out No longer eligible based on patient's age to complete this topic Zoster Vaccines Discontinued documented as of this encounter Medical Devices Not on filedocumented as of this encounter Care Teams Mixer Driver Relationship Specialty Start Date End Date Janelle Pimentel MD [address] [facility] [place] [address] PCP - General Internal Medicine 02/19/22 documented as of this encounter
--- OUTSIDE RECORDS SUMMARY | 2024-02-27 13:32 | External Medical Summary | Summary of Care ---
Author Name Unknown Organization [facility] Address [address] [place] [address] Phone [phone] Care Team Providers Care Line Server Name Role Phone Janelle Pimentel MD Primary Care Provider [phone] Reason for Visit * Reason Onset Date Comments Test Results 11/12/2023 Unexpected or In determinate Result Encounter Details Date Type Department Care Team (Late st Contact Info) Description 11/12/2023 Telephone Laboratory, [place] [address] [place] [address] Barber Robison, DO [address] [place] [address] Test Results (Unexpected or Indeterminate [...] as of this encounter (statuses as of 11/12/2023) Medications Medication Sig Dispensed Refills Start Date [...] as of this encounter (statuses as of 11/12/2023) Active Problems Problem Noted Date Diagnosed Date [...] stenosis 02/19/2022 DDD (degenerative disc disease), lumbar 10/10/20 22 Family history of premature CAD 02/19/2022 S/p nephrectomy 02/19/2022 Gait difficulty 02/19/2022 Tremor 02/19/2022 History of TIA (transient ischemic attack) 02/19 Hoarseness of voice 02/19/2022 History of renal cell cancer 02/19/2022 Peripheral polyneuropathy 02/19/2022 documented as of this encounter (statuses as of 11/12/2023) Resolved Problems Problem Noted Date Diagnosed Date Resolved Date COPD, mild 05/22/2022 09/19/2022 Overview: Per COPD GOLD Classification Hyperlipidemia 02/19/2022 05/22/2022 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 Thank you, Myra Soto, RENNY Client Service Rep [facility] [place] documented in this encounter Plan of Treatment Upcoming Encounters Date Type Department Care Team (Late st Contact Info) Description 11/25/2023 10:20 AM EDT Office Visit [facility] [address] [place] [address] Janelle Pimentel MD [address] [place] [address] 09/08/2024 1:30 PM EDT Office Visit Neurology [facility] [place] [address] [place] [address] Marissa Farris PA-C [address] [place] [address] Scheduled Procedures Name Priority Associated Diagnoses Date/Ti [...] 06/05/2024 06/05/2022, 06/05/2022 CKD HGB USE SMARTSET 59137 06/24/202406/24, 06/24/2023, 06/12/2022, Additional history exists Albumin/Creatinine Ratio 10/07/2024 024, 02/08/2023, 02/23/2022 CKD PHOS USE SMARTSET 37573 10/07/2024 10/08/2023, 0 02/08/2023 O2 ASSESSMENT COMPLETED IN PAST YEAR FOR COPD 10/07/2024 10/08/2023 Colonoscopy 05/25/2027 05/25/2022, 05/13, 05/24/2022, Additional history exists Colorectal Cancer Screening 05/25/2027 Lipid Panel 10/07/2028 10/08/2023, 05/15, 04/19/2021, Additional history exists Pneumococcal Vaccine: 65+ Years Completed 09/24/2018, 03/07/2017 VITAMIN D LEVEL ONCE IN A LIFETIME-USE SMARTSET# [id number] Completed 02/23/2022 RETIRED - COLONOSCOPY-EVERY 5 YRS [...] filedocumented as of this encounter Care Teams Line Server Relationship Specialty Start Date End Date Janelle Pimentel MD [address] [place] [address] PCP - General Internal Medicine 02/19/22 documented as of this encounter
--- OUTSIDE RECORDS SUMMARY | 2024-02-27 13:32 | External Medical Summary | Summary of Care ---
Author Name Unknown Organization [facility] Address [address] [place] [address] Phone [phone] Care Team Providers Care Director Sales Name Role Phone Janelle Pimentel MD Primary Care Provider [phone] Reason for Referral * Precert (Within 10 days (routine)) - Pending Review Specialty Diagnoses / Procedures Referred By Contac t Referred To Contact Radiology Diagnoses Compression fracture of thoracic vertebra with routine healing, unspecified thoracic vertebral level, subsequent encounter Procedures MRI T SPINE WO CONTRAST Barber Robison DO [address] [place] [address] Referral ID Status Reason Start Date Expiration Date V isits Requested Visits Authorized [id number] Pending Review 11/13/2023 999 999 Reason for Visit * Reason Onset Date Comments Test Results 11/12/2023 Unexpected or In determinate Result Encounter Details Date Type Department Care Team (Late st Contact Info) Description 11/12/2023 Telephone Laboratory, [place] [address] [place] [address] Barber Robison DO [address] [place] [address] Test Results (Unexpected or Indeterminate [...] Encounter - Bhavani Britt LPN - 11/15/2023 12:06 PM EDT Patient made aware of need for Thoracic MRI. Patient stated that she did see Dr. Cormier with [facility]. She was told she is not a candidate for surgery due to only being a 50% chance that it would get rid of the pain. Patient was referred to Chiropractor and has been seeing relief in the pain and helping to lessen the sciatica pain. Patient transferred to front office director staff to schedule Thoracic MRI. * Telephone Encounter - Bhavani Britt LPN [...] an unexpected or indeterminate finding on Enma [facility] ([id number]) and asks that you review the following [...] reviewed. Thank you, RENNY Tiwari Client Service [facility] documented in this encounter Plan of Treatment Upcoming Encounters Date Type Department Care Team (Late st Contact Info) Description 11/25/2023 10:20 AM EDT Office Visit [facility] [place] [address] [place] [phone] Janelle Pimentel MD [address] [place] [address] 12/19/2023 4:00 PM EDT Imaging Radiology [address] [place] [address] 09/08/2024 1:30 PM EDT Office Visit [facility] [address] [facility] [address] Marissa Farris PA-C [address] [place] [address] Scheduled Orders Name Type Priority Associated Diagnoses [...] 06/05/2024 06/05/2022, 06/05/2022 CKD HGB USE SMARTSET 81278 06/24/202406/24, 06/24/2023, 06/12/2022, Additional history exists Albumin/Creatinine Ratio 10/07/2024 024, 02/08/2023, 02/23/2022 CKD PHOS USE SMARTSET 24559 10/07/2024 10/08/2023, 0 02/08/2023 O2 ASSESSMENT COMPLETED IN PAST YEAR FOR COPD 10/07/2024 10/08/2023 Colonoscopy 05/25/2027 05/25/2022, 05/13, 05/24/2022, Additional history exists Colorectal Cancer Screening 05/25/2027 Lipid Panel 10/07/2028 10/08/2023, 05/15, 04/19/2021, Additional history exists Pneumococcal Vaccine: 65+ Years Completed 09/24/2018, 03/07/2017 VITAMIN D LEVEL ONCE IN A LIFETIME-USE SMARTSET# [id number] Completed 02/23/2022 RETIRED - COLONOSCOPY-EVERY 5 YRS [...] Primary documented in this encounter Care Teams Director Sales Relationship Specialty Start Date End Date Janelle Pimentel MD [address] [place] [address] PCP - General Internal Medicine 02/19/22 documented as of this encounter
--- OUTSIDE RECORDS SUMMARY | 2024-02-27 13:32 | External Medical Summary ---
Author Name Unknown Address Unknown Organization K01:[facility]ATORY [facility] [place] - [address] [facility] [address] [facility] [address] Laboratory Report Ordering Provider Test Date Status EDGAR DE LEON 11/25/2023 10:47:15 Final Normal: <30 mg/g creatinine< br/>High: 30-300 mg/g creatinine
Very High: >300 mg/g creatinine
Nephrotic: >2200 mg/g creatinine Observation Date Value Abnormality Reference (Units ) Status Albumin, Urine 11/25/2023 10:47:15 <1.20 (mg/dL) Final Creatinine, Urine 11/25/2023 10:47:15 56 (mg/dL) Final Albumin/Creatinine [Mass Ratio] in Urine 11/25/2023 10:47:15 <21 <30 (mg/g Creat) Final Performing Location LAB[facility]ATORY [facility] [place] - [address] [facility] [address]
--- OUTSIDE RECORDS SUMMARY | 2024-02-27 13:32 | External Medical Summary | Summary of Care ---
Author Name Unknown Organization [facility] Address [address] [place] [address] Phone [phone] Care Team Providers Care Timber Hand Name Role Phone Janelle Pimentel MD Primary Care Provider Encounter Details Date Type Department Care Team (Late st Contact Info) Description 11/18/2023 Refill [facility] [address] [place] [address] Janelle Pimentel MD [address] [place] [address] Allergies Active Allergy Reactions Criticality [...] as of this encounter (statuses as of 11/18/2023) Medications Medication Sig Dispensed Refills Start Date [...] 5 07/25/2023 Active hydroCHLOROthiazide 12.5 MG Oral TabletIndications:H TN, [...] 10/08/2023 Atorvastatin Calcium 40 MG Oral Tablet (Lipitor)Indication s:History of TIA (transient ischemic attack),Hyperlipide josep, unspecified hyperlipidemia type TAKE 1 TABLET BY MOUTH IN THE MORNING 100 Tablet 09/25/2023 Active amLODIPine Besylate 2.5 MG Oral Tablet (Norvasc) TAKE 1 TABLET BY MOUTH EVERY NIGHT AT BEDTIME 100 Tablet 2 10/04/2023 Active hydrOXYzine HCl 25 MG Oral Tablet TAKE 1 TABLET BY MOUTH 3 TIMES DAILY - IN THE MORNING, AT NOON, AND BEFORE BEDTIME 300 Tablet 1 10/31/2023 Active DULoxetine HCl 60 MG Oral Capsule Delayed Release Particles (Cymbalta) Take 1 Capsule by mouth in the morning. Do not cut, crush or chew. 90 Capsule 3 11/04/2023 Active Fluticasone Propionate 50 MCG/ACT Nasal Suspension (Flonase) Administer 2 Sprays into nostril in the morning. 48 mL 2 11/18/2023 Active Fluticasone Propionate 50 MCG/ACT Nasal Suspension (Flonase) SPRAY 2 SPRAYS INTO EACH NOSTRIL IN THE MORNING 48 mL 2 10/25/2023 4 Discontinu ed(Refill) documented as of this encounter (statuses as of 11/18/2023) Active Problems Problem Noted Date Diagnosed Date [...] as of this encounter (statuses as of 11/18/2023) Resolved Problems Problem Noted Date Diagnosed Date Resolved Date COPD, mild 05/22/2022 09/19/2022 Overview: Per COPD GOLD Classification Hyperlipidemia 02/19/2022 05/22/2022 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 02/19/2022 05/22/2022 documented as of this encounter (statuses as of 11/18/2023) Immunizations Name Administration Dates Next Due Pneumococcal [...] Telephone Encounter - Janelle Pimentel MD - 11/18/2023 3:23 PM EDTSigned Prescriptions: Disp Refills Fluticasone Propionate 50 MCG/ACT Nasal Mittal*48 mL 2 Sig: Administer 2 Sprays into nostril in the morning.Authorizing Provider: JANELLE PIMENTEL * Telephone Encounter - Ara Brunner LPN - 11/18/2023 2:43 PM EDT Did you pend patient's preferred pharmacy and medication before forwarding?yes [facility] [facility] Pending Prescriptions: Disp Refills Fluticasone Propionate 50 MCG/ACT Nasal S*48 mL 2 Sig: Administer 2 Sprays into nostril in the morning. Last Visit: 08/05/2023 (in office), Visit date not found (telemedicine) Next Visit: 11/25/2023 If no future appointments scheduled, and last appointment is greater than a year ago, please schedule patient for a follow-up appointment Last date the medication was ordered: 10/25/2023 Is this request for a controlled substance?No Urine Drug Screen:No results found for this or any previous visit. Patient Phone Numbers Labs: Lab Results Component Value Date/Time CREAT 1.2 (H) 10/08/2023 11:54 AM POTASSIUM 3.9 10/08/2023 11:54 AM TSH 2.02 06/16/2019 12:00 AM LDLCALC 33 10/08/2023 11:54 AM LDLCALC 57 04/19/2021 12:00 AM LDLCALC 33 09/12/2017 07:14 AM ALT 32 06/24/2023 09:44 AM documented in this encounter Plan of Treatment Upcoming Encounters Date Type Department Care Team (Late st Contact Info) Description 11/25/2023 10:20 AM EDT Office Visit [facility] [address] [place] [address] Janelle Pimentel MD [address] [place] [address] 12/19/2023 4:00 PM EDT Imaging Radiology [address] [facility] [place] [address] 09/08/2024 1:30 PM EDT Office Visit Neurology [facility] [address] [facility] [place] [address] Marissa Farris PA-C [address] [place] [address] Scheduled Procedures Name Priority Associated Diagnoses Date/Ti [...] 06/05/2024 06/05/2022, 06/05/2022 CKD HGB USE SMARTSET 10650 06/24/202406/24, 06/24/2023, 06/12/2022, Additional history exists Albumin/Creatinine Ratio 10/07/2024 024, 02/08/2023, 02/23/2022 CKD PHOS USE SMARTSET 07196 10/07/2024 10/08/2023, 0 02/08/2023 O2 ASSESSMENT COMPLETED IN PAST YEAR FOR COPD 10/07/2024 10/08/2023 Colonoscopy 05/25/2027 05/25/2022, 05/13, 05/24/2022, Additional history exists Colorectal Cancer Screening 05/25/2027 Lipid Panel 10/07/2028 10/08/2023, 05/15, 04/19/2021, Additional history exists Pneumococcal Vaccine: 65+ Years Completed 09/24/2018, 03/07/2017 VITAMIN D LEVEL ONCE IN A LIFETIME-USE SMARTSET# [id number] Completed 02/23/2022 RETIRED - COLONOSCOPY-EVERY 5 YRS [...] filedocumented as of this encounter Care Teams Timber Hand Relationship Specialty Start Date End Date Janelle Pimentel MD [address] [place] [address] PCP - General Internal Medicine 02/19/22 documented as of this encounter
--- OUTSIDE RECORDS SUMMARY | 2024-02-27 13:32 | External Medical Summary | Summary of Care ---
Author Name Unknown Organization [facility] Address [address] [place] [address] Phone [phone] Care Team Providers Care Hand Funnel Coater Name Role Phone Janelle Pimentel MD Primary Care Provider [phone] Reason for Referral * Precert (Within 10 days (routine)) - Pending Review Specialty Diagnoses / Procedures Referred By Contac t Referred To Contact Radiology Diagnoses Compression fracture of thoracic vertebra with routine healing, unspecified thoracic vertebral level, subsequent encounter Procedures MRI T SPINE WO CONTRAST Barber Robison DO [address] [place] [address] Referral ID Status Reason Start Date Expiration Date V isits Requested Visits Authorized [id number] Pending Review 11/13/2023 999 999 Reason for Visit * Reason Onset Date Comments Test Results 11/12/2023 Unexpected or In determinate Result Encounter Details Date Type Department Care Team (Late st Contact Info) Description 11/12/2023 Telephone Laboratory, [place] [address] [place] [address] Barber Robison DO [address] [place] [address] Test Results (Unexpected or Indeterminate [...] the sciatica pain. Patient transferred to front loader residential driver staff to schedule Thoracic MRI. * Telephone Encounter - Bhavani Britt LPN - 11/15/2023 11:27 AM EDT Attempted to contact patient. No answer, left message for patient to return call to the office. * Addendum Note - Braber Robison DO - 11/13/2023 4:59 PM EDTAddended by: BARBER ROBISON on: 11/13/2023 04:59 PM Modules accepted: Orders * Telephone Encounter - Myra Burkett OSA - 11/12/2023 7:06 PM EDT Hello- The radiologist discovered an unexpected or indeterminate [facility] ([id number][facility] and asks that you review the following [...] reviewed. Thank you, RENNY Tiwari Client Service [facility] documented in this encounter Plan of Treatment Upcoming Encounters Date Type Department Care Team (Late st Contact Info) Description 11/25/2023 10:20 AM EDT Office Visit Family [facility] [place] [address] [place] [phone] Janelle Pimentel MD [address] [place] [address] 12/19/2023 4:00 PM EDT Imaging Radiology [address] [place] [address] 09/08/2024 1:30 PM EDT Office Visit [facility] [address] [facility] [address] Marissa Farris PA-C [address] [place] [address] Scheduled Orders Name Type Priority Associated Diagnoses [...] 06/05/2024 06/05/2022, 06/05/2022 CKD HGB USE SMARTSET 54291 06/24/202406/24, 06/24/2023, 06/12/2022, Additional history exists Albumin/Creatinine Ratio 10/07/2024 024, 02/08/2023, 02/23/2022 CKD PHOS USE SMARTSET 26335 10/07/2024 10/08/2023, 0 02/08/2023 O2 ASSESSMENT COMPLETED IN PAST YEAR FOR COPD 10/07/2024 10/08/2023 Colonoscopy 05/25/2027 05/25/2022, 05/13, 05/24/2022, Additional history exists Colorectal Cancer Screening 05/25/2027 Lipid Panel 10/07/2028 10/08/2023, 05/15, 04/19/2021, Additional history exists Pneumococcal Vaccine: 65+ Years Completed 09/24/2018, 03/07/2017 VITAMIN D LEVEL ONCE IN A LIFETIME-USE SMARTSET# 71830 Completed 02/23/2022 RETIRED - COLONOSCOPY-EVERY 5 YRS [...] Primary documented in this encounter Care Teams Hand Funnel Coater Relationship Specialty Start Date End Date Janelle Pimentel MD [address] [place] [address] PCP - General Internal Medicine 02/19/22 documented as of this encounter
--- OUTSIDE RECORDS SUMMARY | 2024-02-27 13:32 | External Medical Summary | Summary of Care ---
Author Name Unknown Organization [facility] Address [address] [place] [address] Phone [phone] Care Team Providers Care Sheet Manager Name Role Phone Janelle Pimentel MD Primary Care Provider [phone] Reason for Visit * Reason Onset Date Comments Remote Patient Monitoring Alert 11/19/2023 Encounter Details Date Type Department Care Team (Late st Contact Info) Description 11/19/2023 Home Monitoring Care Coordination [address] [place] [address] HepDary flores, [employer]SULTANT HTN, goal below 140/90* Allergies Active Allergy [...] as of this encounter (statuses as of 11/20/2023) Medications Medication Sig Dispensed Refills Start Date [...] the morning. 48 mL 2 11/18/2023 Active documented as of this encounter (statuses as of 11/20/2023) Active Problems Problem Noted Date Diagnosed Date [...] as of this encounter (statuses as of 11/20/2023) Resolved Problems Problem Noted Date Diagnosed Date Resolved Date COPD, mild 05/22/2022 09/19/2022 Overview: Per COPD GOLD Classification Hyperlipidemia 02/19/2022 05/22/2022 Systolic heart failure raj hayes to idiopathic cardiomyopathy 02/19/2022 05/22/2022 documented as of this encounter (statuses as of 11/20/2023) Immunizations Name Administration Dates Next Due Pneumococcal [...] as of this encounter Progress Notes * Jose A Álvarez, [facility] - 11/20/2023 9:57 AM EDT [facility] - Hypertension Management Patient Phone Numbers This patient was contacted as part of the [facility] Nephrology 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 Blood Pressure Goal: 130/80 mmHg Type of Alert: Yellow Current Hypertension Medications: Norvasc 2.5mg QHS HCTZ 12.5mg QAM Previous antihypertensive use: n/a Experiencing symptoms related to elevated BP: No Systolic Diastolic HR -Nov 149 81 78 8-Nov 130 77 81 -Nov 118 76 82 -Nov 160 82 73 -Nov 147 74 83 -Nov 118 77 80 -Nov 133 83 85 -Oct 108 66 79 -Oct 127 79 77 -Oct 134 83 67 121 75 84 121 76 82 Systolic Diastolic HR Average 131 77 79 Hi 160 83 85 Lo 108 66 67 Range 52 17 18 BP Readings from Last 3 Encounters: 10/08/23 115/71 09/03/23 130/70 08/07/23 149/93 Pulse Readings from Last 3 Encounters: 10/08/23 75 09/03/23 74 08/07/23 72 Recent Labs Units 10/08/23 1154 08/02/23 0949 06/24/23 0944 SODIUM - [facility] mmol/L 141 141 143 POTASSIUM - [facility] mmol/L 3.9 3.9 4.1 CHLORIDE - [facility] mmol/L 104 102 103 CO2 - [facility] mmol/L 26 25 29 CREATININE - [facility] mg/dL 1.2* 1.4* 1.2* BUN - [facility] mg/dL 21* 22* 25* ASSESSMENT & PLAN: Spoke to Enma and discussed her elevated BP. November 13 when BP was 160/82 she had been very active and lifted several heavy objects as well as taking her BG in the late afternoon versus in the morningwhen the other BP were taken. She stated she feels better when her BP is near or over 130/75. She has had no symptoms. She stated she generally has headaches when her BP is lower. No changes to medications at this time based on the above information. Patient educated on the following: Manage stress MEDICATION CHANGES: No change Hypertension Medications: Norvasc 2.5mg QHS HCTZ 12.5mg QAM HEALTH MAINTENANCE INTERVENTIONS: Labs: Ordered & Scheduled: Up to date FOLLOW UP: As needed Jose A Morgan RPh Clinical Pharmacist - Supervisory Historian Med[facility] 11/20/2023, 9:57 AM * Dary Purcell LPN - 11/19/2023 4:16 PM EDT Enma Goff [phone] Enma Jennifer Shell is currently participating in the [facility] Hypertension Management Program and had a reading on 11/19/2023 of 149/81. Pt has alerted for an Average BP [...] 11/25/2023 10:20 AM EDT Office Visit [facility] [address] [place] [phone] Janelle Pimentel MD [address] [place] [address] 12/19/2023 4:00 PM EDT Imaging Radiology [facility] [address] [facility] [place] [address] 09/08/2024 1:30 PM EDT Office Visit Neurology [facility] [address] [place] [address] Marissa Farris PA-C [address] [facility] [place] [address] Scheduled Procedures Name Priority Associated Diagnoses Date/Ti [...] 06/05/2024 06/05/2022, 06/05/2022 CKD HGB USE SMARTSET 55752 06/24/202406/24, 06/24/2023, 06/12/2022, Additional history exists Albumin/Creatinine Ratio 10/07/2024 024, 02/08/2023, 02/23/2022 CKD PHOS USE SMARTSET 68485 10/07/2024 10/08/2023, 0 02/08/2023 O2 ASSESSMENT COMPLETED IN PAST YEAR FOR COPD 10/07/2024 10/08/2023 Colonoscopy 05/25/2027 05/25/2022, 05/13, 05/24/2022, Additional history exists Colorectal Cancer Screening 05/25/2027 Lipid Panel 10/07/2028 10/08/2023, 05/15, 04/19/2021, Additional history exists Pneumococcal Vaccine: 65+ Years Completed 09/24/2018, 03/07/2017 VITAMIN D LEVEL ONCE IN A LIFETIME-USE SMARTSET# 22694 Completed 02/23/2022 RETIRED - COLONOSCOPY-EVERY 5 YRS [...] hypertension documented in this encounter Care Teams Sheet Manager Relationship Specialty Start Date End Date Janelle Pimentel MD [address] [place] [address] PCP - General Internal Medicine 02/19/22 documented as of this encounter
--- OUTSIDE RECORDS SUMMARY | 2024-02-27 13:32 | External Medical Summary ---
Author Name Unknown Address Unknown Organization K01:LABORATORY [facility] [place] - [address] [place] [address] Laboratory Report Ordering Provider Test Date Status EDGAR DE LEON 11/25/2023 10:47:07 Final Observation Date Value Abnormality Reference (Units ) Status HbA1C 11/25/2023 10:47:07 5.9 Above high normal 4. 0-5.6 (%) Final The use of HbA1c to monitor glycemic status is based on normal hemoglobin and HbA composition. This test should not be used in patients with abnormal hemoglobin that affects the half life of the red blood cell or the in vivo glycation rates. Glucose, estimated average 11/25/2023 10:47:07 123 <126 (mg/dL) Final Performing Location LABORATORY [facility] [place] - [address] [facility] [place] [address]
--- OUTSIDE RECORDS SUMMARY | 2024-02-27 13:32 | External Medical Summary | Summary of Care ---
Author Name Unknown Organization [facility] Address [address] [place] [address] Phone [phone] Care Team Providers Care Internal Communications Specialist Name Role Phone Janelle Pimentel MD Primary Care Provider [phone] Reason for Visit * Reason Onset Date Comments Films 11/07/2023 Encounter Details Date Type Department Care Team (Late st Contact Info) Description 11/07/2023 Telephone Radiology Film File [address] [place] [address] Barber Robison, DO [address] [place] [address] Films Allergies Active Allergy Reactions Criticality Noted Date [...] as of this encounter (statuses as of 11/07/2023) Medications Medication Sig Dispensed Refills Start Date [...] as of this encounter (statuses as of 11/07/2023) Active Problems Problem Noted Date Diagnosed Date [...] as of this encounter (statuses as of 11/07/2023) Resolved Problems Problem Noted Date Diagnosed Date Resolved Date COPD, mild 05/22/2022 09/19/2022 Overview: Per COPD GOLD Classification Hyperlipidemia 02/19/2022 05/22/2022 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 (Household - for ages [...] encounter Miscellaneous Notes * Telephone Encounter - David Tyler Epic Support - 11/07/2023 9:09 AM EDT [facility] requesting 11-06-2023 images be pushed to their system. [place] Authorization to Release on file. Images pushed to [facility] external connection through PACs Associated report(s) not needed. documented in this encounter Plan of Treatment Upcoming Encounters Date Type Department Care Team (Late st Contact Info) Description 11/25/2023 10:20 AM EDT Office Visit [facility] [address] [facility] [place] [address] Janelle Pimentel [facility] [address] [facility] [place] [address] 09/08/2024 1:30 PM EDT Office Visit Neurology [facility] [place] [facility] [address] Marissa Farris PA-C [address] [place] [address] Scheduled Procedures Name Priority Associated Diagnoses Date/Ti [...] 06/05/2024 06/05/2022, 06/05/2022 CKD HGB USE SMARTSET 17264 06/24/202406/24, 06/24/2023, 06/12/2022, Additional history exists Albumin/Creatinine Ratio 10/07/2024 024, 02/08/2023, 02/23/2022 CKD PHOS USE SMARTSET 31847 10/07/2024 10/08/2023, 0 02/08/2023 O2 ASSESSMENT COMPLETED IN PAST YEAR FOR COPD 10/07/2024 10/08/2023 Colonoscopy 05/25/2027 05/25/2022, 05/13, 05/24/2022, Additional history exists Colorectal Cancer Screening 05/25/2027 Lipid Panel 10/07/2028 10/08/2023, 05/15, 04/19/2021, Additional history exists Pneumococcal Vaccine: 65+ Years Completed 09/24/2018, 03/07/2017 VITAMIN D LEVEL ONCE IN A LIFETIME-USE SMARTSET# 03694 Completed 02/23/2022 RETIRED - COLONOSCOPY-EVERY 5 YRS [...] filedocumented as of this encounter Care Teams Internal Communications Specialist Relationship Specialty Start Date End Date Janelle Pimentel MD [address] [place] [address] PCP - General Internal Medicine 02/19/22 documented as of this encounter
--- OUTSIDE RECORDS SUMMARY | 2024-02-27 13:33 | External Medical Summary | Summary of Care ---
Author Name Unknown Organization [facility] Address [address] [place] [address] Phone [phone] Care Team Providers Care Fashion Styling Intern Name Role Phone Janelle Pimentel MD Primary Care Provider [phone] Reason for Visit * Reason Onset Date Comments Remote Patient Monitoring Alert 10/28/2023 Encounter Details Date Type Department Care Team (Late st Contact Info) Description 10/28/2023 Home Monitoring Care Coordination [address] [place] [address] HepDary flores, CAT SKINNER HTN, goal below 140/90* Allergies Active Allergy [...] as of this encounter (statuses as of 10/28/2023) Medications Medication Sig Dispensed Refills Start Date [...] 2 Capsules before bedtime. Wellness Formula. Active hydrOXYzine HCl 25 MG Oral Tablet TAKE 1 TABLET BY MOUTH THREE TIMES DAILY -IN THE MORNING, AT NOON, AND BEFORE BEDTIME 270 Tablet 2 02/16/2023 Active Methocarbamol 500 MG Oral Tablet (Robamol) [...] by mouth in the morning. 07/29/2023 Active DULoxetine HCl 60 MG Oral Capsule Delayed Release Particles (Cymbalta) Take 1 Capsule by mouth in the morning. Do not cut, crush or chew. 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 Sometimes true Sex and Gender Information Value Date Recorded Sex Assigned at Female 05/20/2022 5:33 PM EST Gender Identity Female 05/20/2022 5:33 PM EST Sexual Orientation Straight 05/20/2022 5: 33 PM EST Job Start Date Occupation Industry Not on file Not on file Not on file documented as of this encounter Progress Notes * No Kovacs, [facility] - 10/28/2023 3:25 PM EDT SBP DBP Pulse 150 83 73 149 79 74 135 78 83 154 87 71 134 79 69 127 78 85 135 79 72 Average 141 80 #DIV/0! 75 Hi 154 87 0 85 Lo 127 78 0 69 Range 27 9 0 16 BP average only just above goal. No dose adjustments warranted at this time. No Kovacs, PharmD, BCACP Clinical Pharmacist Medication Therapy Disease Management 10/28/2023, 3:26 PM * Dary Purcell LPN - 10/28/2023 8:40 AM EDT Enma Goff [phone] Enma Goff is currently participating in the [employer] Hypertension Management Program and had a reading on 10/27/2023 of 150/83. Pt has alerted for an Average BP [...] Description 11/06/2023 7:00 AM EDT Imaging Radiology [facility], [address] [place] [address] 11/25/2023 10:20 AM EDT [facility] [address] [facility] [phone] Janelle Pimentel MD [address] [facility] [place] [id number] 09/08/2024 1:30 PM EDT Office Visit Neurology [facility] [place] [address] [facility] [place] [address] Marissa Farris PA-C [address] [place] [address] Scheduled Procedures Name Priority Associated Diagnoses Date/Ti [...] 06/05/2024 06/05/2022, 06/05/2022 CKD HGB USE SMARTSET 40022 06/24/202406/24, 06/24/2023, 06/12/2022, Additional history exists Albumin/Creatinine Ratio 10/07/2024 024, 02/08/2023, 02/23/2022 CKD PHOS USE SMARTSET 94896 10/07/2024 10/08/2023, 0 02/08/2023 O2 ASSESSMENT COMPLETED IN PAST YEAR FOR COPD 10/07/2024 10/08/2023 Colonoscopy 05/25/2027 05/25/2022, 05/13, 05/24/2022, Additional history exists Colorectal Cancer Screening 05/25/2027 Lipid Panel 10/07/2028 10/08/2023, 05/15, 04/19/2021, Additional history exists Pneumococcal Vaccine: 65+ Years Completed 09/24/2018, 03/07/2017 VITAMIN D LEVEL ONCE IN A LIFETIME-USE SMARTSET# [id number] Completed 02/23/2022 RETIRED - COLONOSCOPY-EVERY 5 YRS [...] hypertension documented in this encounter Care Teams Fashion Styling Intern Relationship Specialty Start Date End Date Janelle Pimentel MD [address] [place], [place] [id number] PCP - General Internal Medicine 02/19/22 documented as of this encounter
--- OUTSIDE RECORDS SUMMARY | 2024-02-27 13:33 | External Medical Summary | Summary of Care ---
Author Name Unknown Organization [facility] Address [address] [place] [address] Phone [phone] Care Team Providers Care Podiatry Professor Name Role Phone Janelle Pimentel MD Primary Care Provider [phone] Reason for Visit * Reason Comments eRx-Medication Refill Encounter Details Date Type Department Care Team (Late st Contact Info) Description 10/25/2023 Refill [facility] [address] [place] [address] Janelle Pimentel MD [address] [place] [address] Allergies Active Allergy Reactions Criticality [...] as of this encounter (statuses as of 10/25/2023) Medications Medication Sig Dispensed Refills Start Date [...] NOON, AND BEFORE BEDTIME 270 Tablet 2 3 Active Methocarbamol 500 MG Oral Tablet (Robamol) TAKE ONE TABLET BY MOUTH EVERY MORNING AND ONE TABLET BEFORE BEDTIME 180 Tablet 2 3 Active traZODone HCl 100 MG Oral Tablet (Desyrel) Take 0.5 Tablets by mouth at bedtime. 90 Tablet 2 3 Active Trulance 3 MG Oral Tablet (Plecanatide) Take 3 mg by mouth in the morning. 90 Tablet 3 3 Active Anoro Ellipta 62.5-25 MCG/ACT Inhalation Aerosol Powder Breath Activated (umeclidinium-vilan terol)Indications:b reathing Inhale 1 Puff by mouth in the morning. 90 Each 3 3 Active Albuterol Sulfate HFA 108 (90 Base) MCG/ACT Inhalation Aerosol Solution Inhale 2 Puffs by mouth every 6 hours as needed (SOB). 18 g 5 4 Active hydroCHLOROthiazide 12.5 MG Oral TabletIndications:H TN, goal below 140/90 Take 1 Tablet by mouth in the morning. 4 Active DULoxetine HCl 60 MG Oral Capsule Delayed Release Particles (Cymbalta) Take 1 Capsule by mouth in the morning. Do not cut, crush or chew. 90 Capsule 3 4 Active ProAir HFA 108 (90 Base) MCG/ACT Inhalation Aerosol Solution Inhale 2 Puffs by mouth every 6 hours as needed for Wheezing. 54 g 3 4 Active Zolpidem Tartrate 5 MG Oral Tablet (Ambien) Take 1 Tablet by mouth at bedtime as needed for Sleep. 30 Tablet 3 4 Active Cetirizine HCl 10 MG Oral Tablet (ZyrTEC) Take 1 Tablet by mouth in the morning. 90 Tablet 2 4 Active Pantoprazole Sodium 40 MG Oral Tablet Delayed Release (Protonix) TAKE 1 TABLET BY MOUTH IN THE MORNING 1/2 HOUR BEFORE THE FIRST MEAL OF THE DAY. DO NOT CRUSH, SPLIT OR CHEW THE TABLET 70 Tablet 4 4 Active Additional Information Patient taking differently: HS, Reported on 10/08/2023 Atorvastatin Calcium 40 MG Oral Tablet (Lipitor)Indication s:History of TIA (transient ischemic attack),Hyperlipide josep, unspecified hyperlipidemia type TAKE 1 TABLET BY MOUTH IN THE MORNING 100 Tablet 4 Active amLODIPine Besylate 2.5 MG Oral Tablet (Norvasc) TAKE 1 TABLET BY MOUTH EVERY NIGHT AT BEDTIME 100 Tablet 2 4 Active Fluticasone Propionate 50 MCG/ACT Nasal Suspension (Flonase) SPRAY 2 SPRAYS INTO EACH NOSTRIL IN THE MORNING 48 mL 2 4 Active Fluticasone Propionate 50 MCG/ACT Nasal Suspension (Flonase) Administer 2 Sprays into each nostril in the morning. 48 g 4 10/25/19 24 Discontinued documented as of this encounter (statuses as of 10/25/2023) Active Problems Problem Noted Date Diagnosed Date [...] as of this encounter (statuses as of 10/25/2023) Resolved Problems Problem Noted Date Diagnosed Date Resolved Date COPD, mild 05/22/2022 09/19/2022 Overview: Per COPD GOLD Classification Hyperlipidemia 02/19/2022 05/22/2022 Systolic heart failure secantonia hayes to idiopathic cardiomyopathy 02/19/2022 05/22/2022 documented as of this encounter (statuses as of 10/25/2023) Immunizations Name Administration Dates Next Due Pneumococcal [...] encounter Miscellaneous Notes * Telephone Encounter - Tarsha Gallardo [facility] - 10/25/2023 3:10 PM EDTSigned Prescriptions: Disp Refills Fluticasone Propionate 50 MCG/ACT Nasal Mittal*48 mL 2 Sig: SPRAY 2 SPRAYS INTO EACH NOSTRIL IN THE MORNINGAuthorizing Provider: Luis Felipe PIMENTEL User: TARSHA GALLARDO documented in this encounter Plan of Treatment Upcoming Encounters Date Type Department Care Team (Late st Contact Info) Description 11/06/2023 7:00 AM EDT Imaging Radiology [address] [place] [address] 11/25/2023 10:20 AM EDT Office Visit [facility] [address] [place] [address] Janelle Pimentel MD [address] [place] [address] 09/08/2024 1:30 PM EDT Office Visit [facility] [address] [facility] [address] Marissa Farris PA-C [address] [place] [address] Scheduled Procedures Name Priority Associated Diagnoses Date/Ti [...] 06/05/2024 06/05/2022, 06/05/2022 CKD HGB USE SMARTSET 11524 06/24/202406/24, 06/24/2023, 06/12/2022, Additional history exists Albumin/Creatinine Ratio 10/07/2024 024, 02/08/2023, 02/23/2022 CKD PHOS USE SMARTSET 46959 10/07/2024 10/08/2023, 0 02/08/2023 O2 ASSESSMENT COMPLETED IN PAST YEAR FOR COPD 10/07/2024 10/08/2023 Colonoscopy 05/25/2027 05/25/2022, 05/13, 05/24/2022, Additional history exists Colorectal Cancer Screening 05/25/2027 Lipid Panel 10/07/2028 10/08/2023, 05/15, 04/19/2021, Additional history exists Pneumococcal Vaccine: 65+ Years Completed 09/24/2018, 03/07/2017 VITAMIN D LEVEL ONCE IN A LIFETIME-USE SMARTSET# 54474 Completed 02/23/2022 RETIRED - COLONOSCOPY-EVERY 5 YRS [...] filedocumented as of this encounter Care Teams Podiatry Professor Relationship Specialty Start Date End Date Janelle Pimentel MD [address] [place] [address] PCP - General Internal Medicine 02/19/22 documented as of this encounter
--- OUTSIDE RECORDS SUMMARY | 2024-02-27 13:33 | External Medical Summary | Summary of Care ---
Author Name Unknown Organization [facility] Address [address] [place] [address] Phone [phone] Care Team Providers Care Flight Control Tower Operator Name Role Phone Janelle Pimentel MD Primary Care Provider [phone] Reason for Visit * Reason Onset Date Comments Medication Refill 10/30/2023 Encounter Details Date Type Department Care Team (Late st Contact Info) Description 10/30/2023 Refill [facility] [address] [place] [address] Janelle Pimentel MD [address] [place] [address] Allergies Active Allergy Reactions Criticality [...] as of this encounter (statuses as of 10/31/2023) Medications Medication Sig Dispensed Refills Start Date [...] BEFORE BEDTIME 300 Tablet 1 10/31/2023 Active documented as of this encounter (statuses as of 10/31/2023) Active Problems Problem Noted Date Diagnosed Date [...] as of this encounter (statuses as of 10/31/2023) Resolved Problems Problem Noted Date Diagnosed Date Resolved Date COPD, mild 05/22/2022 09/19/2022 Overview: Per COPD GOLD Classification Hyperlipidemia 02/19/2022 05/22/2022 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 02/19/2022 05/22/2022 documented as of this encounter (statuses as of 10/31/2023) Immunizations Name Administration Dates Next Due Pneumococcal [...] encounter Miscellaneous Notes * Telephone Encounter - Margie Zhu RPh - 10/31/2023 10:14 AM EDTRefused Prescriptions: Disp Refills hydrOXYzine HCl 25 MG Oral Tablet 270 Ta*2 Sig: TAKE 1 TABLET BY MOUTH THREE TIMES DAILY -IN THE MORNING, AT NOON, AND BEFORE BEDTIMERefused By: MARGIE ZHU for Refusal: Duplicate Request documented in this encounter Plan of Treatment Upcoming Encounters Date Type Department Care Team (Late st Contact Info) Description 11/06/2023 7:00 AM EDT Imaging Radiology [facility] [facility] [place] [address] [place] [address] 11/25/2023 10:20 AM EDT Office Visit [facility] [address] [place] [facility] [place] [phone] Janelle Pimentel MD [address] [place] [facility] [place] [address] 09/08/2024 1:30 PM EDT Office Visit [facility] [address] [facility] [address] Marissa Farris PA-C [facility] [place] [address] Scheduled Procedures Name Priority Associated Diagnoses Date/Ti [...] 06/05/2024 06/05/2022, 06/05/2022 CKD HGB USE SMARTSET 80850 06/24/202406/24, 06/24/2023, 06/12/2022, Additional history exists Albumin/Creatinine Ratio 10/07/2024 024, 02/08/2023, 02/23/2022 CKD PHOS USE SMARTSET 01166 10/07/2024 10/08/2023, 0 02/08/2023 O2 ASSESSMENT COMPLETED IN PAST YEAR FOR COPD 10/07/2024 10/08/2023 Colonoscopy 05/25/2027 05/25/2022, 05/13, 05/24/2022, Additional history exists Colorectal Cancer Screening 05/25/2027 Lipid Panel 10/07/2028 10/08/2023, 05/15, 04/19/2021, Additional history exists Pneumococcal Vaccine: 65+ Years Completed 09/24/2018, 03/07/2017 VITAMIN D LEVEL ONCE IN A LIFETIME-USE SMARTSET# 89425 Completed 02/23/2022 RETIRED - COLONOSCOPY-EVERY 5 YRS [...] filedocumented as of this encounter Care Teams Flight Control Tower Operator Relationship Specialty Start Date End Date Janelle Pimentel MD [address] [place] [address] PCP - General Internal Medicine 02/19/22 documented as of this encounter
--- OUTSIDE RECORDS SUMMARY | 2024-02-27 13:33 | External Medical Summary | Summary of Care ---
Author Name Unknown Organization [facility] Address [address] [place] [address] Phone [phone] Care Team Providers Care Palliative Senior Np Name Role Phone Janelle Pimentel MD Primary Care Provider Reason for Visit * Reason Onset Date Comments Medication Management 11/04/2023 Encounter Details Date Type Department Care Team (Late st Contact Info) Description 11/04/[address] [facility] [address] [place] [address] Janelle Pimentel MD [address] [place] [address] Allergies Active Allergy Reactions Criticality [...] as of this encounter (statuses as of 11/04/2023) Medications Medication Sig Dispensed Refills Start Date [...] or chew. 90 Capsule 3 11/04/2023 Active DULoxetine HCl 60 MG Oral Capsule Delayed Release Particles (Cymbalta) Take 1 Capsule by mouth in the morning. Do not cut, crush or chew. 90 Capsule 3 08/05/2023 4 Discontinu ed(Refill) documented as of this encounter (statuses as of 11/04/2023) Active Problems Problem Noted Date Diagnosed Date [...] as of this encounter (statuses as of 11/04/2023) Resolved Problems Problem Noted Date Diagnosed Date Resolved Date COPD, mild 05/22/2022 09/19/2022 Overview: Per COPD GOLD Classification Hyperlipidemia 02/19/2022 05/22/2022 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 02/19/2022 05/22/2022 documented as of this encounter (statuses as of 11/04/2023) Immunizations Name Administration Dates Next Due Pneumococcal [...] No 06/27/2023 Does the household have a [facility] source of income? (Household - for [...] encounter Miscellaneous Notes * Telephone Encounter - Ara Brunner LPN - 11/04/2023 11:07 AM EDT Did you pend patient's preferred pharmacy and medication before forwarding?yes Pharmacy: [facility] [address] [facility] Pending Prescriptions: Disp Refills DULoxetine HCl 60 MG Oral Capsule Delayed*90 Cap*3 Sig: Take 1 Capsule by mouth in the morning. Do not cut, crush or chew. Last Visit: 08/05/2023 (in office), Visit date not found (telemedicine) Next Visit: 11/25/2023 If no future appointments scheduled, and last appointment is greater than a year ago, please schedule patient for a follow-up appointment Last date the medication was ordered: 08/05/2023 Is this request for a controlled substance?No [...] Description 11/06/2023 7:00 AM EDT Imaging Radiology [facility] [address] [place] [address] 11/25/2023 10:20 AM EDT Office Visit [facility] [address] [place] [address] Janelle Pimentel MD [address] [place] [address] 09/08/2024 1:30 PM EDT Office Visit [facility] [address] [facility] [address] Marissa Farris PA-C [address] [facility] [place] [address] Scheduled Procedures Name Priority Associated Diagnoses Date/Ti [...] 06/05/2024 06/05/2022, 06/05/2022 CKD HGB USE SMARTSET 56549 06/24/202406/24, 06/24/2023, 06/12/2022, Additional history exists Albumin/Creatinine Ratio 10/07/2024 024, 02/08/2023, 02/23/2022 CKD PHOS USE SMARTSET 35913 10/07/2024 10/08/2023, 0 02/08/2023 O2 ASSESSMENT COMPLETED IN PAST YEAR FOR COPD 10/07/2024 10/08/2023 Colonoscopy 05/25/2027 05/25/2022, 05/13, 05/24/2022, Additional history exists Colorectal Cancer Screening 05/25/2027 Lipid Panel 10/07/2028 10/08/2023, 05/15, 04/19/2021, Additional history exists Pneumococcal Vaccine: 65+ Years Completed 09/24/2018, 03/07/2017 VITAMIN D LEVEL ONCE IN A LIFETIME-USE SMARTSET# 89170 Completed 02/23/2022 RETIRED - COLONOSCOPY-EVERY 5 YRS [...] filedocumented as of this encounter Care Teams Palliative Senior Np Relationship Specialty Start Date End Date Janelle Pimentel MD [address] [place] [address] PCP - General Internal Medicine 02/19/22 documented as of this encounter
--- OUTSIDE RECORDS SUMMARY | 2024-02-27 13:33 | External Medical Summary | Summary of Care ---
Author Name Unknown Organization [facility] Address [address] [place] [address] Phone [phone] Care Team Providers Care Sharepoint Application Architect Name Role Phone Janelle Pimentel MD Primary Care Provider [phone] Reason for Referral * Evaluate & Treat - Unlimited Visits (Within 10 days (routine)) - Pending Review Specialty Diagnoses / Procedures Referred By Candy scales Referred To Contact Neuro/Ortho Surgery - Spine. / Neurological Surgery Diagnoses Lumbar radicular pain Spinal stenosis of lumbar region with neurogenic claudication DDD (degenerative disc disease), lumbar Barber Robison DO [address] [place] [address] Referral ID Status Reason Start Date Expiration Date Visits Requested Visits Authorized [id number] Pending Review Specialty Services Required 10/15/[phone] Question Answer Referral Priority Within 10 days (routine) Where should this appointment be scheduled? External - Recommending Dr. Ricky Nur Select spine region: Back - Thoracic/Lumbar Do you have any recent complete loss of bladder or bowel function? No Comments Patient has significant lumbar DDD, no surgical history, with central stenosis and radicular symptoms. Recently underwent L4/5 THADDEUS with good relief of pain but still getting weakness/numbness of the legs suddenly when ambulating. Please evaluate and treat; apprise patient of surgical impression. New MRI L-spine ordered but most recent is 2021. * Precert (Within 10 days (routine)) - Pending Review Specialty Diagnoses / Procedures Referred By Contsusan scales Referred To Contact Radiology Diagnoses Lumbar radicular pain Spinal stenosis of lumbar region with neurogenic claudication DDD (degenerative disc disease), lumbar Procedures MRI L SPINE WO CONTRAST Barber Robison DO [address] [place] [address] Referral ID Status Reason Start Date Expiration Date V isits Requested Visits Authorized [id number] Pending Review 10/15/[phone] Encounter Details Date Type Department Care Team (Late st Contact Info) Description 10/15/2023 11:25 AM EDT Telemedicine Interventional Pain Center, [facility] [address] [place] [address] Barber Robison DO [address] [place] [address] Spinal stenosis of lumbar region with neurogenic claudication*; Lumbar radicular pain; DDD (degenerative disc disease), lumbar Allergies Active Allergy Reactions Criticality Noted Date [...] as of this encounter (statuses as of 10/15/2023) Medications Medication Sig Dispensed Refills Start Date [...] by mouth in the morning. 07/29/2023 Active Fluticasone Propionate 50 MCG/ACT Nasal Suspension (Flonase) Administer 2 Sprays into each nostril in the morning. 48 g 07/29/2023 Active Additional Information Patient not taking.Reported on 08/07/2023 DULoxetine HCl 60 MG Oral Capsule Delayed [...] AT BEDTIME 100 Tablet 2 10/04/2023 Active documented as of this encounter (statuses as of 10/15/2023) Active Problems Problem Noted Date Diagnosed Date [...] as of this encounter (statuses as of 10/15/2023) Resolved Problems Problem Noted Date Diagnosed Date Resolved Date COPD, mild 05/22/2022 09/19/2022 Overview: Per COPD GOLD Classification Hyperlipidemia 02/19/2022 05/22/2022 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 02/19/2022 05/22/2022 documented as of this encounter (statuses as of 10/15/2023) Immunizations Name Administration Dates Next Due Pneumococcal [...] as of this encounter Progress Notes * Barber Robison, - 10/15/2023 11:45 AM EDT Interventional Pain Follow-up Appointment After connecting to the patient via telephone, the patient was identified by name and date of . Patient was then informed that this was a telephone call only visit. The patient agreed to participate. Visit Disposition: Routine follow-up Total call duration was 12 minutes. Subjective: History of Present Illness: Enma Goff is a 73 year old year-old female with a past medical history significant for lumbar radicular pain who is here for a follow-up appointment regarding L4/5 THADDEUS on the left side performed08/07/2023. She states that she has been completely out of pain for the past 2+ months. "It was the best shot that I've had." States that bending, walking, sitting. She state that she has been able to do "normalthings" without having pain. She does still feel like she has leg weakness or has leg numbness at times. Denies pain today. States that she gets whole leg numbness with walking with intermittent leg buckling. Has not seen surgery and most recent MRI is from 2021. Reports weakness. Reports numbness. Denies bowel or bladder incontinence. Denies symptoms of saddleanesthesia. Denies fevers/chills/night sweats. Denies unintentional weight loss. Review of Systems: A focused 12-pt ROS were of reviewed with the patient including difficulty with sleep, snoring, aspiration history, dysphagia, stomach pain, nausea and vomiting, severe headaches, confusion, open skin lesions or wounds, chest pain, shortness of breath, excessive thirst, somnolence, dysuria, incomplete bladder emptying, easy bruising, recent clotting problems or bleeding, depression or rushed thoughts unless noted previously. Allergies, Medications, Past Medical History, Past Surgical History reviewed and documented in [facility]. See detailed report if needed. Pertinent Labs/Test Results: INR - OUTSIDE LAB (no units) Date Value 01/01/2018 1.10 No results found for: "CREATININE" No results found for: "HGBA1C", "[id number]" No results found for: "AMPHETAMINE", "BARBITURATES", "BENZODIAZEPINES", "BUPRENORPHINE", "METHADONE", "OPIATES", "OXYCODONE", "PHENCYCLIDINE", "CANNABINOIDS", "TOX SCREEN", "URINE", "TOX SCREEN-SERUM", "TOX SCREEN, URINE" Imaging: FLUORO INTERVENTIONAL PAIN PROCEDURE NONBILLABLE This procedure will not be read by a Radiologist. Please see operative note. Objective Physical Exam: Vital Signs: There were no vitals taken for this visit. There is no height or weight on file to calculate BMI. General: No apparent distress. Assessment: Enma is a 73 year old year-old female with: Spinal stenosis of lumbar region with neurogenic claudication (Primary) - MRI L SPINE WO CONTRAST - SPINE SURGERY REFERRAL OP Lumbar radicular pain - MRI L SPINE WO CONTRAST - SPINE SURGERY REFERRAL OP DDD (degenerative disc disease), lumbar - MRI L SPINE WO CONTRAST - SPINE SURGERY REFERRAL OP Plan: Excellent 100% relief with LESI of her pain at 7 week follow-up. Still having weakness and numbness with ambulation that has sudden onset, this is worse than her previous symptoms. MRI lumbar spine without contrast, most recent 2021. Spine surgery referral to Dr. Nur's team to consider surgical options. Worst levels appear to beL4/5 and L5/S1. Medical Decision Making I spent 20 minutes reviewing the patient's prior visit office notes, procedure notes, images, conducting the history and physical examination, formulating a care plan, considering interventional options, drafting orders and medication prescriptions as well as recording the medical documentation. Barber Robison DO Interventional Pain Center, [facility] [address] [facility] [place] [address] documented in this encounter Plan of Treatment Upcoming Encounters Date Type Department Care Team (Late st Contact Info) Description 11/06/2023 7:00 AM EDT Imaging Radiology [facility] [address] [facility] [place] [address] 11/25/2023 10:20 AM EDT Office Visit [facility] [address] [facility] [facility] [phone] Janelle Pimentel MD [address] [facility] [address] 09/08/2024 1:30 PM EDT Office Visit Neurology [facility] [address] [facility] [place] [address] Marissa Farris PA-C [address] [place] [address] Scheduled Orders Name Type Priority Associated Diagnoses Orde r Schedule MRI L SPINE WO CONTRAST Medical Imaging Routine Lumbar radicular pain Spinal stenosis of lumbar region with neurogenic claudication DDD (degenerative disc disease), lumbar Ordered: 10/15/2023 Scheduled Procedures Name Priority Associated Diagnoses Date/Ti me COLONOSCOPY FLEXIBLE PROXIMAL DIAGNOSTIC Recall History of colon polyps Scheduled Referrals Name Type Priority Associated Diagnoses Orde r Schedule SPINE SURGERY REFERRAL OP Referral Within 10 days (routine) Lumbar radicular pain Spinal stenosis of lumbar region with neurogenic claudication DDD (degenerative disc disease), lumbar Ordered: 10/15/2023 Health Maintenance Due Date Last Done Comments [...] 06/05/2024 06/05/2022, 06/05/2022 CKD HGB USE SMARTSET 39626 06/24/202406/24, 06/24/2023, 06/12/2022, Additional history exists Albumin/Creatinine Ratio 10/07/2024 024, 02/08/2023, 02/23/2022 CKD PHOS USE SMARTSET 00125 10/07/2024 10/08/2023, 0 02/08/2023 O2 ASSESSMENT COMPLETED IN PAST YEAR FOR COPD 10/07/2024 10/08/2023 Colonoscopy 05/25/2027 05/25/2022, 05/13, 05/24/2022, Additional history exists Colorectal Cancer Screening 05/25/2027 Lipid Panel 10/07/2028 10/08/2023, 05/15, 04/19/2021, Additional history exists Pneumococcal Vaccine: 65+ Years Completed 09/24/2018, 03/07/2017 VITAMIN D LEVEL ONCE IN A LIFETIME-USE SMARTSET# 81262 Completed 02/23/2022 RETIRED - COLONOSCOPY-EVERY 5 YRS [...] as of this encounter Visit Diagnoses Diagnosis Spinal stenosis of lumbar region with neurogenic claudication- Primary Spinal stenosis, lumbar region, with neurogenic claudication Lumbar radicular pain Thoracic or lumbosacral neuritis or radiculitis, unspecified DDD (degenerative disc disease), lumbar Degeneration of lumbar or lumbosacral intervertebral disc documented in this encounter Care Teams Sharepoint Application Architect Relationship Specialty Start Date End Date Janelle Pimentel MD [address] [place] [address] PCP - General Internal Medicine 02/19/22 documented as of this encounter
--- OUTSIDE RECORDS SUMMARY | 2024-02-27 13:33 | External Medical Summary ---
Author Name Unknown Address Unknown Organization K01:LABORATORY [facility] [place] - [address] [place] [address] Laboratory Report Ordering Provider Test Date Status BEATA COFFEY 10/08/2023 11:56:09 Final Normal: <30 mg/g creatinine< br/>High: 30-300 mg/g creatinine
Very High: >300 mg/g creatinine
Nephrotic: >2200 mg/g creatinine Observation Date Value Abnormality Reference (Units ) Status Albumin, Urine 10/08/2023 11:56:09 2.66 (mg/dL) Final Creatinine, Urine 10/08/2023 11:56:09 121 (mg/dL) Final Albumin/Creatinine [Mass Ratio] in Urine 10/08/2023 11:56:09 22 <30 (mg/g Creat) Final Performing Location [facility] [place] [facility] [address] [facility] [address]
--- OUTSIDE RECORDS SUMMARY | 2024-02-27 13:33 | External Medical Summary | Summary of Care ---
Author Name Unknown Organization [facility] Address [address] [place] [address] Phone [phone] Care Team Providers Care Newspaper Copy Editor Name Role Phone Janelle Pimentel MD Primary Care Provider [phone] Reason for Visit * Reason Comments eRx-Medication Refill Encounter Details Date Type Department Care Team (Late st Contact Info) Description 09/23/2023 Refill [facility] [address] [place] [address] Janelle Pimentel MD [address] [place] [address] Stage 3b chronic kidney disease (HCC)*; History of TIA (transient ischemic attack); Hyperlipidemia, unspecified hyperlipidemia type Allergies Active Allergy Reactions Criticality Noted Date [...] as of this encounter (statuses as of 10/08/2023) Medications Medication Sig Dispensed Refills Start Date [...] by mouth in the morning. 4 Active Fluticasone Propionate 50 MCG/ACT Nasal Suspension (Flonase) Administer 2 Sprays into each nostril in the morning. 48 g 4 Active Additional Information Patient not taking.Reported on [...] THE TABLET 70 Tablet 4 4 Active Atorvastatin Calcium 40 MG Oral Tablet (Lipitor)Indication s:History of TIA (transient ischemic attack),Hyperlipide josep, unspecified hyperlipidemia type TAKE 1 TABLET BY MOUTH IN THE MORNING 100 Tablet 4 Active Atorvastatin Calcium 40 MG Oral Tablet (Lipitor) TAKE ONE TABLET BY MOUTH EVERY MORNING 90 Tablet 2 3 09/25/19 24 Discontinued amLODIPine Besylate 2.5 MG Oral Tablet (Norvasc) Take 1 Tablet by mouth every night at bedtime. 90 Tablet 3 3 10/04/19 24 Discontinued documented as of this encounter (statuses as of 10/08/2023) Active Problems Problem Noted Date Diagnosed Date [...] as of this encounter (statuses as of 10/08/2023) Resolved Problems Problem Noted Date Diagnosed Date Resolved Date COPD, mild 05/22/2022 09/19/2022 Overview: Per COPD GOLD Classification Hyperlipidemia 02/19/2022 05/22/2022 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 02/19/2022 05/22/2022 documented as of this encounter (statuses as of 10/08/2023) Immunizations Name Administration Dates Next Due Pneumococcal Conjugate Vacc, 13 Valent (Prevnar) 09/24/2018 Pneumococcal Polysaccharide PPV23 (Pneumovax) documented as of this encounter Social History Tobacco Use Types Packs/Day Years Used Date Smoking Tobacco: Every Day Cigarettes Last attempted to quit: 01/27/2023 Passive Smoke Exposure: Past Smokeless Tobacco: Never Alcohol Use Standard Drinks/Week Comments Not Currently 0 (1 standard drink = 0.6 oz pur e alcohol) PHQ-2 Answer Date Recorded PHQ Adult Total [...] encounter Miscellaneous Notes * Telephone Encounter - Darby Mendoza PHARM Tech - 09/26/2023 11:47 AM EDT Received message from [facility] regarding patient needing labs. Call Placed, Left message on voicemail advising of required labs Thank you, Darby Mendoza Electrolytic De [employer] Pedidos[employer] / PedidosJáacy 09/26/2023, 11:47 AM * Telephone Encounter - Alexx Cota [facility] - 09/25/2023 9:30 AM EDTSigned Prescriptions: Disp Refills Atorvastatin Calcium 40 MG Oral Tablet (Li*100 Ta*0 Sig: TAKE 1 TABLET BY MOUTH IN THE MORNING Authorizing Provider: JANELLE PIMENTEL Ordering User: ALEXX COTA * Telephone Encounter - Alexx Cota [facility] - 09/25/2023 9:26 AM EDT Provided 90 days supply with 0 refill until upcoming appt. Reviewed AMP report, Care Gaps/Health Maintenance, medications list, and for any routine labs typically ordered for this patient. Lab ordersplaced 09/25/23 . Please contact patient to advise of labs ordered for blood draw AND URINE specimen (patient will have to be able to void to provide sample). Recommend patient to fast if able for labs. Patient may still have water and regular medications. Advise to obtain labs before her scheduled office visit 11/25/2023. Thanks, Alexx Cota, Nini.Ph. Clinical Pharmacist [facility] [phone] ext [phone] 09/25/2023,9:29 AM documented in this encounter Plan of Treatment Upcoming Encounters Date Type Department Care Team (Late st Contact Info) Description 10/15/2023 11:25 AM EDT Telemedicine Interventional Pain Center, [facility] [address] [place] [address] Barber Robison DO [address] [place] [phone] 11/25/2023 10:20 AM EDT Office Visit [facility] [address] [place] [phone] Janelle Pimentel MD [address] [place] [address] 09/08/2024 1:30 PM EDT Office Visit Neurology [facility] [address] [place] [address] Marissa Farris PA-C [address] [facility] [place] [address] Pending Results Name Type Priority Associated Diagnoses Date /Time ALBUMIN / CREATININE RATIO, URINE Lab Routine Stage 3b chronic kidney disease (HCC) 10/08/2023 11:56 AM EDT Scheduled Orders Name Type Priority Associated Diagnoses Orde r Schedule ALBUMIN / CREATININE RATIO, URINE Lab Routine Stage 3b chronic kidney disease (HCC) Expected: 09/26/2023 (Approximate), Expires: 09/24/2024 Scheduled Procedures Name Priority Associated Diagnoses Date/Ti me COLONOSCOPY FLEXIBLE PROXIMAL DIAGNOSTIC Recall History of colon polyps Health Maintenance Due Date Last Done Comments Alpha-1 Antitrypsin 01/30/1970 Hepatitis C Screening 01/30/1970 Cologuard 01/30/1997 Fecal Occult Blood Test 01/30/1997 Sigmoidoscopy 01/30/1997 *BISPHONATE OR OTHER ACCEPTABLE MEDICATION NEEDED FOR OSTEOPOROSIS (REFER TO SMARTSET #1146) 05/24/2023 *BASELINE EKG FOR HTN 08/08/2023 Depression Screening 10/16/2023 10/15/2022 Influenza Vaccine (FLU shot) (Season Ended) 2024 Albumin/Creatinine Ratio 02/09/2024 02/08/2023, 02/10 GFR 04/09/2024 10/08/2023, 07/12, 06/24/2023, Additional history exists Mammogram 05/17/2024 05/17/2023, 04/13, 05/08/2022, Additional history exists DXA Scan 06/05/2024 06/05/2022, 06/05/2022 CKD HGB USE SMARTSET 53291 06/24/202406/24, 06/24/2023, 06/12/2022, Additional history exists CKD PHOS USE SMARTSET 76492 10/07/2024 10/08/2023, 0 02/08/2023 O2 ASSESSMENT COMPLETED IN PAST YEAR FOR COPD 10/07/2024 10/08/2023 Colonoscopy 05/25/2027 05/25/2022, 05/13, 05/24/2022, Additional history exists Colorectal Cancer Screening 05/25/2027 Lipid Panel 10/07/2028 10/08/2023, 05/15, 04/19/2021, Additional history exists Pneumococcal Vaccine: 65+ Years Completed 09/24/2018, 03/07/2017 VITAMIN D LEVEL ONCE IN A LIFETIME-USE SMARTSET# 60504 Completed 02/23/2022 RETIRED - COLONOSCOPY-EVERY 5 YRS [...] Not on filedocumented as of this encounter Results * (ABNORMAL) RENAL FUNCTION PANEL (10/08/2023 11:54 AM EDT) BUN 21(H) 6 - 20 mg/dL 10/08/2023 2:20 PM EDT [facility] 56 Creatinine 1.2(H) 0.5 - 1.0 mg/dL 10/08/2023 2:20 PM EDT [facility] 56 Estimated Glomerular Filtration Rate 47(L) >=60 mL/min 10/08/2023 2:20 PM EDT [facility] 56 Comment:eGFR is calculated b ased on the CKD-EPI 2020 equation Sodium 141 135 - 146 mmol/L 10/08/2023 2:20 PM EDT [facility] 56 Potassium 3.9 3.5 - 5.1 mmol/L 10/08/2023 2:20 PM EDT [facility] 56 Chloride 104 98 - 107 mmol/L 10/08/2023 2:20 PM EDT [facility] 56 CO2 26 22 - 32 mmol/L 10/08/2023 2:20 PM EDT [facility] 56 Anion Gap 11 7 - 15 mmol/L 10/08/2023 2:20 PM EDT [facility] 56 Glucose 178(H) 70 - 120 mg/dL 10/08/2023 2:20 PM EDT [facility] 56 Calcium 9.4 8.4 - 10.2 mg/dL 10/08/2023 2:20 PM EDT [facility] 56 Albumin 4.2 3.8 - 5.0 g/dL 10/08/2023 2:20 PM EDT [facility] 56 Phosphorus 3.2 2.5 - 4.8 mg/dL 10/08/2023 2:20 PM EDT [facility] 56 Blood Venous blood specimen / Unknown Venipuncture / Unknown 10/08/2023 11:54 AM EDT 10/08/2023 11:54 AM EDT Alexx Cota [facility] LAB BLOOD ORDERABL ES [facility] [address] [place] [address] * LIPID PANEL WITH DIRECT LDL IF TG IS HIGH (10/08/2023 11:54 AM EDT) Triglycerides 93 <=174 mg/dL 10/08/2023 5:40 PM EDT [facility] [place]: Triglyceride Reference Ranges (mg/dL): <150 Acceptable 150-174 Borderline high 175-499 High >=500 Very high Cholesterol 127 <200 mg/dL 10/08/2023 5:40 PM EDT [facility] [place] Comment: Total Cholesterol Reference Ranges (mg/dL): <200 Desirable 200-239 Borderline high >=240 High HDL Cholesterol 75 >49 mg/dL 5:40 PM EDT [facility] [place] Comment: HDL Cholesterol Reference Ranges (mg/dL): >=60 High (Desirable) <50 Low (Undesirable) For Females <40 Low (Undesirable) For Males Non-HDL Cholesterol 52 <=159 mg/dL 10/08/2023 5:40 PM EDT [facility] [place] Comment: Non-HDL Cholesterol Reference Range (mg/dL): <100 Target level for high risk ASCVD patient <130 Optimal for general population 130-159 Near optimal for general population 160-189 Borderline High 190-219 High >=220 Very High LDL Cholesterol 33 <=129 mg/dL 10/08/2023 5:40 PM EDT [facility] [place] Comment: LDL Cholesterol Reference Ranges (mg/dL): <70 Target level for high risk ASCVD patient <100 Optimal for general population 100-129 Near optimal for general population 130-159 Borderline high 160-189 High >=190 Very high Blood Venous blood specimen / Unknown Venipuncture / Unknown 10/08/2023 11:54 AM EDT 10/08/2023 11:54 AM EDT Alexx Cota [facility] LAB BLOOD ORDERABL ES [facility] [address] [place] [address] documented in this encounter Visit Diagnoses Diagnosis Stage 3b chronic kidney disease (HCC)- Primary History of TIA (transient ischemic attack) Transient ischemic attack (TIA), and cerebral infarction without residual deficits Hyperlipidemia, unspecified hyperlipidemia type documented in this encounter Care Teams Newspaper Copy Editor Relationship Specialty Start Date End Date Janelle Pimentel MD [address] [facility] [place] [id number] PCP - General Internal Medicine 02/19/22 documented as of this encounter
--- OUTSIDE RECORDS SUMMARY | 2024-02-27 13:33 | External Medical Summary | Summary of Care ---
Author Name Unknown Organization [facility] Address [address] [place] [address] Phone [phone] Care Team Providers Care Ground Support Equipment Mechanic Name Role Phone Janelle Pimentel MD Primary Care Provider Reason for Visit * Reason Onset Date Comments Appointment 07/25/2023 Encounter Details Date Type Department Care Team (Late st Contact Info) Description 07/25/2023 Telephone Access Center, [place] [address] [facility] *DO NOT REMOVE THIS DEPARTMENT* [place] [phone] Services, Scheduling [address] [place] [address] Appointment Allergies Active Allergy Reactions Criticality Noted [...] as of this encounter (statuses as of 10/24/2023) Medications Medication Sig Dispensed Refills Start Date [...] the morning. 90 Each 3 02/26/2023 Active documented as of this encounter (statuses as of 10/24/2023) Active Problems Problem Noted Date Diagnosed Date [...] as of this encounter (statuses as of 10/24/2023) Resolved Problems Problem Noted Date Diagnosed Date Resolved Date COPD, mild 05/22/2022 09/19/2022 Overview: Per COPD GOLD Classification Hyperlipidemia 02/19/2022 05/22/2022 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 02/19/2022 05/22/2022 documented as of this encounter (statuses as of 10/24/2023) Immunizations Name Administration Dates Next Due Pneumococcal Conjugate Vacc, 13 Valent (Prevnar) 09/24/2018 Pneumococcal Polysaccharide PPV23 (Pneumovax) documented as of this encounter Social History Tobacco Use Types Packs/Day Years Used Date Smoking Tobacco: Former Cigarettes Q uit: 01/27/2023 Passive Smoke Exposure: Past Smokeless Tobacco: [...] encounter Miscellaneous Notes * Telephone Encounter - Daniela Gordon OSA - 07/25/2023 2:51 PM EDT Pt returning call regarding her scheduled injection on 08/05/[address] Robison That date will not work for her and she is requesting to keep the previously scheduled appointment on 08/07/23 for her injection Please provide a return call to pt to confirm change. documented in this encounter Plan of Treatment Upcoming Encounters Date Type Department Care Team (Late st Contact Info) Description 11/06/2023 7:00 AM EDT Imaging Radiology [facility] 1st [facility] [address] [facility] [place] [address] 11/25/2023 10:20 AM EDT Office Visit [facility] [address] [place] [phone] Janelle Pimentel MD [address] [place] [address] 09/08/2024 1:30 PM EDT Office Visit [facility] [address] Marissa Farris [facility]-C [facility] [place] [address] Scheduled Procedures Name Priority Associated Diagnoses Date/Ti [...] 06/05/2024 06/05/2022, 06/05/2022 CKD HGB USE SMARTSET 75802 06/24/202406/24, 06/24/2023, 06/12/2022, Additional history exists Albumin/Creatinine Ratio 10/07/2024 024, 02/08/2023, 02/23/2022 CKD PHOS USE SMARTSET 57888 10/07/2024 10/08/2023, 0 02/08/2023 O2 ASSESSMENT COMPLETED IN PAST YEAR FOR COPD 10/07/2024 10/08/2023 Colonoscopy 05/25/2027 05/25/2022, 05/13, 05/24/2022, Additional history exists Colorectal Cancer Screening 05/25/2027 Lipid Panel 10/07/2028 10/08/2023, 05/15, 04/19/2021, Additional history exists Pneumococcal Vaccine: 65+ Years Completed 09/24/2018, 03/07/2017 VITAMIN D LEVEL ONCE IN A LIFETIME-USE SMARTSET# 81804 Completed 02/23/2022 RETIRED - COLONOSCOPY-EVERY 5 YRS [...] filedocumented as of this encounter Care Teams Ground Support Equipment Mechanic Relationship Specialty Start Date End Date Janelle Pimentel MD [address] [place] [address] PCP - General Internal Medicine 02/19/22 documented as of this encounter
--- OUTSIDE RECORDS SUMMARY | 2024-02-27 13:33 | External Medical Summary ---
Author Name Unknown Address Unknown Organization K01:[facility] - [address] [facility] [place] [address] Laboratory Report Ordering Provider Test Date Status ALEXX,BEATA 10/08/2023 11:54:24 Final Observation Date Value Abnormality Reference (Units ) Status Triglyceride 10/08/2023 11:54:24 93 <=174 ( mg/dL) Final Triglyceride Reference Range s (mg/dL):
<150 Acceptable
150-174 Borderline high
175-499 High
>=500 Very high Cholesterol 10/08/2023 11:54:24 127 <200 (mg /dL) Final Total Cholesterol Reference Ranges (mg/dL):
<200 Desirable
200-239 Borderline high
>=240 High HDL 10/08/2023 11:54:24 75 >49 (mg/dL ) Final HDL Cholesterol Reference Ra nges (mg/dL):
>=60 High (Desirable)
<50 Low (Undesirable) For Females
<40 Low (Undesirable) For Males NON-HDL CHOLESTEROL 10/08/2023 11:54:24 52 <=159 (mg/dL) Final Non-HDL Cholesterol Referenc e Range (mg/dL):
<100 Target level for high risk ASCVD patient
<130 Optimal for general population
130-159 Near optimal for general population
160-189 Borderline High
190-219 High
>=220 Very High LDL, (calculated) 10/08/2023 11:54:24 33 <= 129 (mg/dL) Final LDL Cholesterol Reference Ra nges (mg/dL):
<70 Target level for high risk ASCVD patient
<100 Optimal for general population
100-129 Near optimal for general population
130-159 Borderline high
160-189 High
>=190 Very high Performing Location [facility] - [address] [facility] [address]
--- OUTSIDE RECORDS SUMMARY | 2024-02-27 13:33 | External Medical Summary | Summary of Care ---
Author Name Unknown Organization [facility] Address [address] [place] [address] Phone [phone] Care Team Providers Care Ore Smelter Name Role Phone Janelle Pimentel MD Primary Care Provider [phone] Reason for Visit * Reason Comments Outpatient Testing Encounter Details Date Type Department Care Team (Late st Contact Info) Description 10/08/2023 12:20 PM EDT Laboratory Laboratory [facility] [address] [place] [address] [place], [address] [place] [address] History of TIA (transient ischemic attack); Hyperlipidemia, unspecified hyperlipidemia type; Stage 3b chronic kidney disease (HCC) Allergies Active Allergy Reactions Criticality Noted [...] THE TABLET 70 Tablet 4 09/09/2023 Active Atorvastatin Calcium 40 MG Oral Tablet (Lipitor)Indications [...] 11:25 AM EDT Telemedicine Interventional [facility], [facility] [address] [place] [address] Barber Robison DO [address] [place] [address] 11/25/2023 10:20 AM EDT Office Visit [facility] [address] [place] [phone] Janelle Pimentel MD [address] [place] [address] 09/08/2024 1:30 PM EDT Office Visit Neurology [facility] [address] [facility] [place] [address] Marissa Farris PA-C [address] [facility] [place] [address] Pending Results Name Type Priority Associated Diagnoses Date /Time LIPID PANEL WITH DIRECT LDL IF TG IS HIGH Lab Routine History of TIA (transient ischemic attack) Hyperlipidemia, unspecified hyperlipidemia type 10/08/2023 11:54 AM EDT RENAL FUNCTION PANEL Lab Routine Stage 3b chronic kidney disease (HCC) 10/08/2023 11:54 AM EDT ALBUMIN / CREATININE RATIO, URINE Lab Routine Stage 3b chronic kidney disease (HCC) 10/08/2023 11:56 AM EDT Scheduled Procedures Name Priority Associated Diagnoses Date/Ti me COLONOSCOPY FLEXIBLE PROXIMAL DIAGNOSTIC Recall History of colon polyps Health Maintenance Due Date Last Done Comments DISCUSS TOBACCO CESSATION (REFER TO SMARTSET #3291) 1950 Alpha-1 Antitrypsin 01/30/1970 Hepatitis C Screening 01/30/1970 Cologuard 01/30/1997 Fecal Occult Blood Test 01/30/1997 Sigmoidoscopy 01/30/1997 *BISPHONATE OR OTHER ACCEPTABLE MEDICATION NEEDED FOR OSTEOPOROSIS (REFER TO SMARTSET #1146) 05/24/2023 *BASELINE EKG FOR HTN 08/08/2023 Depression Screening 10/16/2023 10/15/2022 Influenza Vaccine (FLU shot) (Season Ended) 2024 GFR 02/02/2024 08/02/2023, 06/13, 12/12/2022, Additional history exists Albumin/Creatinine Ratio 02/09/2024 02/08/2023, 02/10 CKD PHOS USE SMARTSET 36810 02/09/2024 02/08/2023 Mammogram 05/17/2024 05/17/2023, 1211/2021, 05/08/2022, Additional history exists DXA Scan 06/05/2024 06/05/2022, 06/05/2022 CKD HGB USE SMARTSET 26335 06/24/202406/24, 06/24/2023, 06/12/2022, Additional history exists O2 ASSESSMENT COMPLETED IN PAST YEAR FOR COPD 09/02/2024 09/03/2023 Colonoscopy 05/25/2027 05/25/2022, 05/13, 05/24/2022, Additional history exists Colorectal Cancer Screening 05/25/2027 Lipid Panel 06/12/2027 06/12/2022, 12/12/2020, 09/12/2017 Pneumococcal Vaccine: 65+ Years Completed 09/24/2018, 03/07/2017 VITAMIN D LEVEL ONCE IN A LIFETIME-USE SMARTSET# [id number] Completed 02/23/2022 RETIRED - COLONOSCOPY-EVERY 5 YRS [...] as of this encounter Visit Diagnoses Diagnosis History of TIA (transient ischemic attack) Transient ischemic attack (TIA), and cerebral infarction without residual deficits Hyperlipidemia, unspecified hyperlipidemia type Stage 3b chronic kidney disease (HCC) documented in this encounter Care Teams Ore Smelter Relationship Specialty Start Date End Date Janelle Pimentel MD [address] [place] [address] PCP - General Internal Medicine 02/19/22 documented as of this encounter
--- OUTSIDE RECORDS SUMMARY | 2024-02-27 13:33 | External Medical Summary | Summary of Care ---
Author Name Unknown Organization [facility] Address [address] [place] [address] Phone [phone] Care Team Providers Care Otr Refrigerated Cdl Truck Driver Name Role Phone Janelle Pimentel MD Primary Care Provider [phone] Reason for Visit * Reason Comments Outpatient Testing Encounter Details Date Type Department Care Team (Late st Contact Info) Description 10/08/2023 12:20 PM EDT Laboratory Laboratory [facility] [address] [place] [address] [place], [address] [place] [address] History of TIA (transient ischemic attack); Hyperlipidemia, [...] Team (Late st Contact Info) Description 10/08/2023 12:00 PM EDT Office Visit [facility] [address] [place] [address] Kaitlin Goodwin MD [address] [facility] [place] [address] 10/15/2023 11:25 AM EDT Telemedicine Interventional [facility] Center, [facility] [address] [place] [address] Barber Robison DO [address] [place] [address] 11/25/2023 10:20 AM EDT Office Visit [place] [address] [place] [phone] Janelle Pimentel MD [address] [place] [address] 09/08/2024 1:30 PM EDT Office Visit Neurology [facility] [address] [facility] [place] [address] Marissa Farris PA-C [address] [facility] [place] [address] Pending Results Name Type Priority Associated Diagnoses [...] Comments DISCUSS TOBACCO CESSATION (REFER TO SMARTSET #6628) 1950 Alpha-1 Antitrypsin 01/30/1970 Hepatitis C Screening 01/30/1970 Cologuard 01/30/1997 Fecal Occult Blood Test 01/30/1997 Sigmoidoscopy 01/30/1997 *BISPHONATE OR OTHER ACCEPTABLE MEDICATION NEEDED FOR OSTEOPOROSIS (REFER TO SMARTSET #1146) 05/24/2023 *BASELINE EKG FOR HTN 08/08/2023 Depression Screening 10/16/2023 10/15/2022 Influenza Vaccine (FLU shot) (Season Ended) 2024 GFR 02/02/2024 08/02/2023, 06/13, 12/12/2022, Additional history exists Albumin/Creatinine Ratio 02/09/2024 02/08/2023, 02/10 CKD PHOS USE SMARTSET 58125 02/09/2024 02/08/2023 Mammogram 05/17/2024 05/17/2023, 04/13, 05/08/2022, Additional history exists DXA Scan 06/05/2024 06/05/2022, 06/05/2022 CKD HGB USE SMARTSET 59502 06/24/202406/24, 06/24/2023, 06/12/2022, Additional history exists O2 ASSESSMENT COMPLETED IN PAST YEAR FOR COPD 09/02/2024 09/03/2023 Colonoscopy 05/25/2027 05/25/2022, 05/13, 05/24/2022, Additional history exists Colorectal Cancer Screening 05/25/2027 Lipid Panel 06/12/2027 06/12/2022, 12/12/2020, 09/12/2017 Pneumococcal Vaccine: 65+ Years Completed 09/24/2018, 03/07/2017 VITAMIN D LEVEL ONCE IN A LIFETIME-USE SMARTSET# 34496 Completed 02/23/2022 RETIRED - COLONOSCOPY-EVERY 5 YRS [...] (HCC) documented in this encounter Care Teams Otr Refrigerated Cdl Truck Driver Relationship Specialty Start Date End Date Janelle Pimentel MD [address] [facility] [place] [address] PCP - General Internal Medicine 02/19/22 documented as of this encounter
--- OUTSIDE RECORDS SUMMARY | 2024-02-27 13:33 | External Medical Summary | Summary of Care ---
Author Name Unknown Organization [facility] Address [address] [place] [address] Phone [phone] Care Team Providers Care Lead Pressman Roto Gravure Printing Name Role Phone Janelle Pimentel MD Primary Care Provider [phone] Reason for Visit * Reason Comments eRx-Medication Refill Encounter Details Date Type Department Care Team (Late st Contact Info) Description 10/26/2023 Refill [facility] [address] [place] [address] Janelle Pimentel MD [address] [place] [address] Allergies Active Allergy Reactions Criticality [...] THE MORNING 48 mL 2 4 Active hydrOXYzine HCl 25 MG Oral Tablet TAKE 1 TABLET BY MOUTH 3 TIMES DAILY - IN THE MORNING, AT NOON, AND BEFORE BEDTIME 300 Tablet 1 4 Active hydrOXYzine HCl 25 MG Oral Tablet TAKE 1 TABLET BY MOUTH THREE TIMES DAILY -IN THE MORNING, AT NOON, AND BEFORE BEDTIME 270 Tablet 2 3 10/31/19 24 Discontinued documented as of this encounter [...] Telephone Encounter - Janelle Pimentel MD - 10/31/2023 3:59 AM EDTSigned Prescriptions: Disp Refills hydrOXYzine HCl 25 MG Oral Tablet 300 Ta*1 Sig: TAKE 1 TABLET BY MOUTH 3 TIMES DAILY - IN THE MORNING, AT NOON, AND BEFORE BEDTIME Authorizing Provider: JANELLE PIMENTEL * Telephone Encounter - Interface, E-Rx Ss Inbound - 10/30/2023 4:43 AM EDT Pending Prescriptions: Disp Refills hydrOXYzine HCl 25 MG Oral Tablet 300 Ta*1 Sig: TAKE 1 TABLET BY MOUTH 3 TIMES DAILY - IN THE MORNING, AT NOON, AND BEFORE BEDTIME * Telephone Encounter - Cordell Schroeder, [facility] - 10/28/2023 8:56 AM EDTPending Prescriptions: Disp Refills hydrOXYzine HCl 25 MG Oral Tablet 300 Ta*1 Sig: TAKE 1 TABLET BY MOUTH 3 TIMES DAILY - IN THE MORNING, AT NOON, AND BEFORE BEDTIME * Telephone Encounter - Cordell Schroeder, [facility] - 10/28/2023 8:56 AM EDT Pending Prescriptions: Disp Refills hydrOXYzine HCl 25 MG Oral Tablet 300 Ta*1 Sig: TAKE 1 TABLET BY MOUTH 3 TIMES DAILY - IN THE MORNING, AT NOON, AND BEFORE BEDTIME 08/05/2023 (in office), Visit date not found (telemedicine) 11/25/2023 If no future appointments scheduled, and last appointment is greater than a year ago, please schedule patient for a follow-up appointment Last date the medication was ordered: 02/16/23 Pharmacy: [facility] Is this request for a controlled substance?No Urine Drug Screen:No results found for this or any previous visit. Patient Phone Numbers [facility] [phone] Labs: Lab Results Component Value Date/Time CREAT [...] Description 11/06/2023 7:00 AM EDT Imaging Radiology [address] [facility] [place] [address] 11/25/2023 10:20 AM EDT Office Visit [facility] [address] [facility] [address] Janelle Pimentel MD [address] [place] [address] 09/08/2024 1:30 PM EDT Office Visit [facility] [address] Marissa Farris PA-C [address] [facility] [place] [address] Scheduled Procedures Name Priority Associated Diagnoses Date/Ti [...] 06/05/2024 06/05/2022, 06/05/2022 CKD HGB USE SMARTSET 12450 06/24/202406/24, 06/24/2023, 06/12/2022, Additional history exists Albumin/Creatinine Ratio 10/07/2024 024, 02/08/2023, 02/23/2022 CKD PHOS USE SMARTSET 90786 10/07/2024 10/08/2023, 0 02/08/2023 O2 ASSESSMENT COMPLETED IN PAST YEAR FOR COPD 10/07/2024 10/08/2023 Colonoscopy 05/25/2027 05/25/2022, 05/13, 05/24/2022, Additional history exists Colorectal Cancer Screening 05/25/2027 Lipid Panel 10/07/2028 10/08/2023, 05/15, 04/19/2021, Additional history exists Pneumococcal Vaccine: 65+ Years Completed 09/24/2018, 03/07/2017 VITAMIN D LEVEL ONCE IN A LIFETIME-USE SMARTSET# 84881 Completed 02/23/2022 RETIRED - COLONOSCOPY-EVERY 5 YRS [...] filedocumented as of this encounter Care Teams Lead Pressman [employer] Printing Relationship Specialty Start Date End Date Janelle Pimentel MD [address] [place] [address] PCP - General Internal Medicine 02/19/22 documented as of this encounter
--- OUTSIDE RECORDS SUMMARY | 2024-02-27 13:33 | External Medical Summary | Summary of Care ---
Author Name Unknown Organization [facility] Address [address] [place] [address] Phone [phone] Care Team Providers Care Product Safety Officer Name Role Phone Janelle Pimentel MD Primary Care Provider [phone] Reason for Visit * Reason Comments Return Visit Chronic Kidney Disease (CKD) Hypertension Encounter Details Date Type Department Care Team (Late st Contact Info) Description 10/08/2023 12:00 PM EDT Office Visit Nephrology, [facility] [address] [place] [address] Kaitlin Goodwin MD [address] [place] [address] HTN, goal below 130/80*; White coat syndrome with diagnosis of hypertension; S/p nephrectomy; Stage 3 chronic kidney disease, unspecified whether stage 3a or 3b CKD (HCC); History of renal cell cancer Allergies Active Allergy Reactions Criticality Noted Date [...] Passive Smoke Exposure: Past Smokeless Tobacco: Never Tobacco Cessation:Counseling Given: Not Answered Alcohol Use Standard Drinks/Week Comments Yes 0 [...] Sign Reading Time Taken Comments Blood Pressure 115/71 10/08/2023 1:13 PM EDT Pulse 75 10/08/2023 1:13 PM EDT Temperature 36.3 C (97.4 F) 10/08/2023 1:13 PM ED T Respiratory Rate 20 10/08/2023 1:13 PM EDT Oxygen Saturation 97% 10/08/2023 1:13 PM EDT Inhaled Oxygen Concentration - - Weight 64.8 kg (142 lb 12.8 oz) 10/08/2023 1:13 PM EDT Height - - Body Mass Index 27.2 03/25/2023 12:40 PM EST documented in this encounter Patient Instructions * Patient Instructions* Kaitlin Goodwin MD - 10/08/2023 1:29 PM EDT -limit protein to no more than 50 gm daily most days -avoid medicines like aleve, advil, ibuprofen, aspirin more than 81 mg daily and other NSAIDS whichare not good for kidney patients. Take only tylenol (acetaminophen) up to 2000 mg daily as needed for pain or as directed by your primary care provider. -will let you know how your labs look -if you fall again, reach out to Dr Pimentel or go to ER documented in this encounter Progress Notes * Kaitlin Goodwin MD - 10/08/2023 1:14 PM EDT NEPHROLOGY CLINIC NOTE [facility] [address] 10/08/2023, 1:15 PM Patient Name: Enma Goff BACKGROUND: 73 year old female presents for f/u of of hypertension in the setting of solitary kidney after 2018 nephrectomy for pT1a renal cell carcinoma. Past medical history also significant for HTN as below, chronic systolic heart failure due to idiopathic cardiomyopathy (EF 45%; though not on meds for this), TIA in 2018, cervical and lumbar spine issues, ambulatory dysfunction, GERD, peripheral neuropathy. Patient with a 40 year history of smoking 1/2 pack per day, quit early February 2022. Hx of anaphylaxis w/ ACEI and w/ naproxen. Hypertension diagnosed 2018 and with history of urgency 2018 in setting of TIA. BP can be labile attimes. R total Nephrectomy done 2018 in [place]. Per pt RCC had no mets; did not see cancer doctor orurologist. Since then pt followed with nephro - no records/details available of RCC. W/ nephrectomy, pt then had new dx of CKD per her report. After 2018 nephrectomy at some point, moved to [place] where she was admitted November 2021 in [place] for fall w/ head injury. Moved here summer 2021 from [place]. In [place], she followed with a expansion joint builder for CKD 3 with baseline creatinine in 1.3 and estimated GFR in the low 40s. At January 2022 follow-up with [place] [facility], no changes to care, though pt was noted to have suboptimal BP control, for home BP log. Had severe light headedness, "foggy" thought process, dizzy reported July 2022 visit w/ amlodipine; we stopped this and it resolved. Did see Dr. Childers August 2022 and 4 ultrasound Q 3 years to monitor left kidney. Recommends follow-up in 3 years with Urology or p.r.n. Dr. Childers reviewed June 2022 CT and cystoscopy reports Home blood pressure checks: not lately; has Omron 3 accurate as of fall 2021 History of stones: no Family history of CKD or ESRD: sister w/ CKD 5 currently refusing dialysis and pt not sure what caused renal issues; NSAID use: no; hx of anaphylaxis Herbals/supplements: n/a Last hospital stay: November 2021 >> fell off toilet d/t low BP, head contusion; now w/ L sided numbness to waist now w/ cane Sister and daughter are local. [place] the [place]. TODAY 10/08/2023: no acute interval events clinically except about one week ago fell while walking from bathroom back to her bedroom. Both legs gave out after loss of feeling in both of them; was unable to get up / move ; hit her L brow/cheek and threw her back on her back. Rolled over to get up butlegs too weak to get up; sat on bed and rested and then fine. No LOC; no bowel/ bladder incontinence, no limb twitching, no fluttery heart beats or chest pain. L leg can give out suddenly but never had both do this before. Last Fell 11/2021 and hit head w/ LOC and back problems started then. Doing remote bp program Quit and started and quit and started and now x 1 wk again off tobacco. Taking hard rc to changeup routine/habits; patch did not work; chantix gave nightmares. Her daugther said can't go on vacation w/ her unless pt stops. Limiting protein intake > usually one serving daily. Acc by sister and daughter today. REVIEW OF SYSTEMS: No F/C, after intended wt loss in spring wt now steady, energy level ok and appetite messed up by digestive issues >gets sick to stomach fast No acute visual changes or DOBSON No sinus, dental, throat pain No neck lumps/bumps or stiffness No palpitations, angina, orthopnea, LE edema No cough, wheeze, or dyspnea No N/V/D/abd pain; stable chronic HB on prilosec; finds she has to stand to eat; still w/ significant constipation No dysuria, hematuria, nocturia >2X; no new or worrisome voiding symptoms; incontinence has resolved No rash or generalized itch Many focal joint/muscle aches - holger back and neck No inappropriate bleeding or bruising No tremor, seizures, focal or global weakness; numb to L hip and L leg paresthesias No orthostatic or presyncopal symptoms; no falls Current Outpatient Medications Medication Sig Dispense Refill Vitamin C 500 MG Oral Tablet (Ascorbic Acid) Take 1 Tablet by mouth. Vitamin E 450 MG (1000 UT) Oral Capsule Take 1 Capsule by mouth. Elderberry 500 MG Oral Capsule Take 1 [...] and 2 Capsules before bedtime. Wellness Formula. hydrOXYzine HCl 25 MG Oral Tablet TAKE 1 TABLET BY MOUTH THREE TIMES DAILY -IN THE MORNING, AT NOON, AND BEFORE BEDTIME 270 Tablet 2 Methocarbamol 500 MG Oral Tablet (Robamol) TAKE ONE TABLET BY MOUTH EVERY MORNING AND ONE TABLET BEFORE BEDTIME 180 Tablet 2 traZODone HCl 100 MG Oral Tablet (Desyrel) Take 0.5 Tablets by mouth at bedtime. 90 Tablet 2 Trulance 3 MG Oral Tablet (Plecanatide) Take 3 mg by mouth in the morning. 90 Tablet 3 Anoro Ellipta 62.5-25 MCG/ACT Inhalation Aerosol Powder Breath Activated (umeclidinium-vilanterol) Inhale 1 Puff by mouth in the morning. 90 Each 3 Albuterol Sulfate HFA 108 (90 Base) MCG/ACT Inhalation Aerosol Solution Inhale 2 Puffs by mouth every 6 hours as needed (SOB). 18 g 5 hydroCHLOROthiazide 12.5 MG Oral Tablet Take 1 Tablet by mouth in the morning. DULoxetine HCl 60 MG Oral Capsule Delayed Release Particles (Cymbalta) Take 1 Capsule by mouth in the morning. Do not cut, crush or chew. 90 Capsule 3 ProAir HFA 108 (90 Base) MCG/ACT Inhalation Aerosol Solution Inhale 2 Puffs by mouth every 6 hours as needed for Wheezing. 54 g 3 Zolpidem Tartrate 5 MG Oral Tablet (Ambien) Take 1 Tablet by mouth at bedtime as needed for Sleep. 30 Tablet 3 Cetirizine HCl 10 MG Oral Tablet (ZyrTEC) Take 1 Tablet by mouth in the morning. 90 Tablet 2 Pantoprazole Sodium 40 MG Oral Tablet Delayed Release (Protonix) TAKE 1 TABLET BY MOUTH IN THE MORNING 1/2 HOUR BEFORE THE FIRST MEAL OF THE DAY. DO NOT CRUSH, SPLIT OR CHEW THE TABLET (Patient taking differently: at bedtime.) 70 Tablet 4 Atorvastatin Calcium 40 MG Oral Tablet (Lipitor) TAKE 1 TABLET BY MOUTH IN THE MORNING 100 Tablet 0 amLODIPine Besylate 2.5 MG Oral Tablet (Norvasc) TAKE 1 TABLET BY MOUTH EVERY NIGHT AT BEDTIME 100 Tablet 2 D3-1000 25 MCG (1000 UT) Oral Capsule (Cholecalciferol) Take 1 Capsule by mouth in the morning. Fluticasone Propionate 50 MCG/ACT Nasal Suspension (Flonase) Administer 2 Sprays into each nostril in the morning. (Patient not taking: Reported on 08/07/2023) 48 g 0 No current facility-administered medications for this visit. Review of patient's allergies indicates: Allergen Reactions [...] sores Wellbutrin [Bupropion] Neuro complications (Please comment) PHYSICAL EXAMINATION: BP Readings from Last 6 Encounters: 10/08/23 115/71 09/03/23 130/70 08/07/23 149/93 08/05/23 120/80 07/05/23 100/64 02/28/23 140/76 Wt Readings from Last 6 Encounters: 10/08/23 64.8 kg (142 lb 12.8 oz) 09/03/23 65.8 kg (145 lb) 08/05/23 65.3 kg (144 lb) 07/05/23 64.9 kg (143 lb) 03/25/23 63.5 kg (140 lb) 02/28/23 67.6 kg (149 lb) Pulse Readings from Last 6 Encounters: 10/08/23 75 09/03/23 74 08/07/23 72 08/05/23 74 07/05/23 66 02/28/23 73 09/24/23 12:52 09/25/23 15:52 09/27/23 15:18 10/01/23 10:22 10/02/23 16:40 10/03/23 11:18 10/04/23 10/06/23 12:04 Systolic BP 146 mm/Hg (H) [1] 147 mm/Hg (H) [1] 125 mm/Hg [1] 129 mm/Hg [1] 140 mm/Hg [1] 133 mm/Hg[1] 107 mm/Hg [1] 110 mm/Hg [1] Diastolic BP 84 mm/Hg [1] 82 mm/Hg [1] 72 mm/Hg [1] 74 mm/Hg [1] 88 mm/Hg [1] 79 mm/Hg [1] 63 mm/Hg[1] 68 mm/Hg [1] Pulse 72 bpm [1] 84 bpm [1] 93 bpm [1] 81 bpm [1] 94 bpm [1] 85 bpm [1] 82 bpm [1] 97 bpm [1] NAD, oriented x 3, ambulatory w/o asst Normocephalic, atraumatic, eomi nonicteric sclerae MMM Supple neck RRR w/o m/g/r; no edema CTAB w/ reasonable air mvt NT abd, +BS, soft No cyanosis or clubbing No rash Some fine axial tremor, focal or global weakness; fluent speech, good historian LABS: Recent Labs Units 08/02/23 0949 06/24/23 0944 12/12/22 1358 08/24/22 1234 SODIUM - [facility] mmol/L 141 143 141 143 POTASSIUM - [facility] mmol/L 3.9 4.1 4.0 4.6 CHLORIDE - [facility] mmol/L 102 103 105 105 CO2 - [facility] mmol/L 25 29 26 28 BUN - [facility] mg/dL 22* 25* 28* 23* CREATININE - [facility] mg/dL 1.4* 1.2* 1.3* 1.2* ESTIMATED GLOMERULAR FILTRATION RATE - [facility] mL/min 41* 47* 45* 48* Recent Labs Units 06/24/23 0944 06/12/22 0818 02/23/22 1317 12/27/21 0000 HGB g/dL 12.3 12.6 11.8* 11.1* TRANSFERRIN SATURATION PERCENT - [facility] % -- -- 33 -- Recent Labs Units 08/02/23 0949 06/24/23 0944 02/08/23 1323 12/12/22 1358 08/24/22 1234 08/01/22 1224 04/06/22 1033 02/23/22 1317 CALCIUM - [facility] mg/dL 9.9 9.6 -- 9.3 8.7 < > 9.5 9.1 PHOSPHORUS - [facility] mg/dL -- -- 4.0 -- -- -- -- -- 25-HYDROXY VITAMIN D - [facility] ng/mL -- -- -- -- -- -- -- 67 PTH - [facility] pg/mL -- -- -- -- -- -- 67* 153* < > = values in this interval not displayed. No results for input(s): "HGBA1C" in the last 25885 hours. Recent Labs Units 02/08/23 1326 02/23/22 1317 ALBUMIN / CREATININE RATIO, URINE - [facility] mg/g Creat 24 13 Recent Labs Units 02/23/22 1317 CLARITY, URINE - [facility] Clear GLUCOSE, URINE - [facility] mg/dL Negative BILIRUBIN, URINE - [facility] Negative KETONE, URINE - [facility] mg/dL Negative SPECIFIC GRAVITY, URINE - [facility] 1.020 BLOOD, URINE - [facility] Negative PH, URINE - [facility] Units 5.5 PROTEIN, URINE - [facility] mg/dL Negative UROBILINOGEN, URINE - [facility] mg/dL 0.2 NITRITE, URINE - [facility] Negative ESTERASE, URINE - [facility] Trace* BACTERIA, URINE - [facility] /HPF 26-50* WBC, URINE - [facility] /HPF 6-9* RBC, URINE - [facility] /HPF 0-2 ASSESSMENT AND PLAN: HTN, goal below 130/80 (Primary) White coat syndrome with diagnosis of hypertension S/p nephrectomy Stage 3 chronic kidney disease, unspecified whether stage 3a or 3b CKD (HCC) History of renal cell cancer BP stilll labile but w/ acceptable control; still w/ white coat component -continue remote bp monitoring -continue hctz 12.5 mg daily, amlodipine 2.5 mg daily -congratulated her strongly on stopping tobacco Last check of ckd labs in July a bit lower than baseline; follow up pending labs from today. No proteinuria ACEI contraindicated; not in SGLT2i range >cont BP control and labs RCC f/u as per urology Patient Instructions -limit protein to no more than 50 gm daily most days -avoid medicines like aleve, advil, ibuprofen, aspirin more than 81 mg daily and other NSAIDS whichare not good for kidney patients. Take only tylenol (acetaminophen) up to 2000 mg daily as needed for pain or as directed by your primary care provider. -will let you know how your labs look -if you fall again, reach out to Dr Pimentel or go to ER Kaitlin Goodwin MD Nephrology, [address] [address] CC: Ref: JANELLE PIMENTEL[[id number]] [address] [place] [address] (office) [phone] (fax) PCP: JANELLE PIMENTEL [address], [place] [id number] This chart was completed in part utilizing [employer] Speech Voice Recognition Software. Randomword insertions, pronoun errors, and incomplete sentences are an occasional consequence of this system due to software limitations, and ambient noise. Any questions or concerns about the content, text, or information contained within the body of this dictation should be directly addressed to the provider for clarification. documented in this encounter Nursing Notes * Jo Ann Doll LPN - 10/08/2023 1:11 PM EDT Patient identified by verbal name and date of .Return Nephro Return visit No recent inpatient stays or ED visits Pt denies SOB or lower extremity edema No recent surgery Last Labs Home BP monitoring visit No recent inpatient hospital stays LESSI 10/03 Finished Doxycycline in winter for sinus Denies SOB or lower extremity edema Labs done today documented in this encounter Plan of Treatment Upcoming Encounters Date Type Department Care Team (Late st Contact Info) Description 11/06/2023 7:00 AM EDT Imaging Radiology [address] [facility] [place] [address] 11/25/2023 10:20 AM EDT Office Visit [facility] [address] [place] [facility] [place] [address] Janelle Pimentel MD [address] [place] [address] 09/08/2024 1:30 PM EDT Office Visit Neurology [facility] [place] [address] [place] [address] Marissa Farris PA-C [address] [facility] [place] [address] Scheduled Procedures Name Priority Associated Diagnoses Date/Ti [...] 06/05/2024 06/05/2022, 06/05/2022 CKD HGB USE SMARTSET 72162 06/24/202406/24, 06/24/2023, 06/12/2022, Additional history exists Albumin/Creatinine Ratio 10/07/2024 024, 02/08/2023, 02/23/2022 CKD PHOS USE SMARTSET 29271 10/07/2024 10/08/2023, 0 02/08/2023 O2 ASSESSMENT COMPLETED IN PAST YEAR FOR COPD 10/07/2024 10/08/2023 Colonoscopy 05/25/2027 05/25/2022, 05/13, 05/24/2022, Additional history exists Colorectal Cancer Screening 05/25/2027 Lipid Panel 10/07/2028 10/08/2023, 05/15, 04/19/2021, Additional history exists Pneumococcal Vaccine: 65+ Years Completed 09/24/2018, 03/07/2017 VITAMIN D LEVEL ONCE IN A LIFETIME-USE SMARTSET# [id number] Completed 02/23/2022 RETIRED - COLONOSCOPY-EVERY 5 YRS [...] encounter Visit Diagnoses Diagnosis HTN, goal below 130/80- Primary Unspecified essential hypertension White coat syndrome with diagnosis of hypertension S/p nephrectomy Acquired absence of kidney Stage 3 chronic kidney disease, unspecified whether stage 3a or 3b CKD (HCC) History of renal cell cancer documented in this encounter Care Teams Product Safety Officer Relationship Specialty Start Date End Date Janelle Pimentel MD [address] [place] [address] PCP - General Internal Medicine 02/19/22 documented as of this encounter
--- OUTSIDE RECORDS SUMMARY | 2024-02-27 13:34 | External Medical Summary | Summary of Care ---
Author Name Unknown Organization [facility] Address [address] [place] [address] Phone [phone] Care Team Providers Care Wharf Tender Helper Name Role Phone Janelle Pimentel MD Primary Care Provider [phone] Reason for Visit * Reason Onset Date Comments Appointment 09/30/2023 Encounter Details Date Type Department Care Team (Late st Contact Info) Description 09/30/2023 Telephone [facility] [phone] Services, Scheduling [address] [place] [address] Appointment Allergies Active Allergy Reactions Criticality Noted [...] as of this encounter (statuses as of 09/30/2023) Medications Medication Sig Dispensed Refills Start Date [...] at bedtime. 90 Tablet 2 02/19/2023 Active amLODIPine Besylate 2.5 MG Oral Tablet (Norvasc) Take 1 Tablet by mouth every night at bedtime. 90 Tablet 3 02/19/2023 Active Trulance 3 MG Oral Tablet [...] IN THE MORNING 100 Tablet 09/25/2023 Active documented as of this encounter (statuses as of 09/30/2023) Active Problems Problem Noted Date Diagnosed Date [...] as of this encounter (statuses as of 09/30/2023) Resolved Problems Problem Noted Date Diagnosed Date Resolved Date COPD, mild 05/22/2022 09/19/2022 Overview: Per COPD GOLD Classification Hyperlipidemia 02/19/2022 05/22/2022 Systolic heart failure [facility] to idiopathic cardiomyopathy 02/19/2022 05/22/2022 documented as of this encounter (statuses as of 09/30/2023) Immunizations Name Administration Dates Next Due Pneumococcal [...] encounter Miscellaneous Notes * Telephone Encounter - Lori Julien LPN - 09/30/2023 11:01 AM EDT Done. * Telephone Encounter - Layla Ziegler OSA - 09/30/2023 10:56 AM EDT Pt would like to change office visit to a phone call visit on October 14 at 11:[address] Robison for 6 week f/u. Thank you documented in this encounter Plan of Treatment Upcoming Encounters Date Type Department Care Team (Late st Contact Info) Description 10/08/2023 12:00 PM EDT Office Visit Nephrology, [facility] [address] [facility] [place] [address] Kaitlin Goodwin MD 200 [facility] [place] [address] 10/15/2023 11:25 AM EDT Telemedicine Interventional Pain Center, [facility] [address] [place] [address] Barber Robison DO [address] [place] [address] 11/25/2023 10:20 AM EDT Office Visit [address] [phone] Janelle Pimentel MD [address] [place] [address] 09/08/2024 1:30 PM EDT Office Visit Neurology [facility] [address] [facility] [place] [address] Marissa Farris PA-C [facility] [place] [address] Scheduled Procedures Name Priority Associated Diagnoses Date/Ti me COLONOSCOPY FLEXIBLE PROXIMAL DIAGNOSTIC Recall History of colon polyps Health Maintenance Due Date Last Done Comments DISCUSS TOBACCO CESSATION (REFER TO SMARTSET #9544) 1950 Alpha-1 Antitrypsin 01/30/1970 Hepatitis C Screening 01/30/1970 Cologuard 01/30/1997 Fecal Occult Blood Test 01/30/1997 Sigmoidoscopy 01/30/1997 *BISPHONATE OR OTHER ACCEPTABLE MEDICATION NEEDED FOR OSTEOPOROSIS (REFER TO SMARTSET #1146) 05/24/2023 *BASELINE EKG FOR HTN 08/08/2023 Depression Screening 10/16/2023 10/15/2022 Influenza Vaccine (FLU shot) (Season Ended) 2024 GFR 02/02/2024 08/02/2023, 06/13, 12/12/2022, Additional history exists Albumin/Creatinine Ratio 02/09/2024 02/08/2023, 02/10 CKD PHOS USE SMARTSET 92300 02/09/2024 02/08/2023 Mammogram 05/17/2024 05/17/2023, 04/13, 05/08/2022, Additional history exists DXA Scan 06/05/2024 06/05/2022, 06/05/2022 CKD HGB USE SMARTSET 29082 06/24/202406/24, 06/24/2023, 06/12/2022, Additional history exists O2 ASSESSMENT COMPLETED IN PAST YEAR FOR COPD 09/02/2024 09/03/2023 Colonoscopy 05/25/2027 05/25/2022, 05/13, 05/24/2022, Additional history exists Colorectal Cancer Screening 05/25/2027 Lipid Panel 06/12/2027 06/12/2022, 12/0 12/2020, 09/12/2017 Pneumococcal Vaccine: 65+ Years Completed 09/24/2018, 03/07/2017 VITAMIN D LEVEL ONCE IN A LIFETIME-USE SMARTSET# [id number] Completed 02/23/2022 RETIRED - COLONOSCOPY-EVERY 5 YRS [...] filedocumented as of this encounter Care Teams Wharf Tender Helper Relationship Specialty Start Date End Date Janelle Pimentel MD [address] [place] [address] PCP - General Internal Medicine 02/19/22 documented as of this encounter
--- OUTSIDE RECORDS SUMMARY | 2024-02-27 13:34 | External Medical Summary | Summary of Care ---
Author Name Unknown Organization [facility] Address [address] [place] [address] Phone [phone] Care Team Providers Care Room Cleaner Name Role Phone Janelle Pimentel MD Primary Care Provider [phone] Reason for Visit * Reason Onset Date Comments Appointment 09/30/2023 Encounter Details Date Type Department Care Team (Late st Contact Info) Description 09/30/2023 Telephone [facility] Center, [facility] [address] [facility] [phone] Services, Scheduling [address] [place] [address] Appointment Allergies Active Allergy Reactions Criticality Noted [...] 10/08/2023 12:00 PM EDT Office Visit Nephrology, [facility] [address] [facility] [place] [address] Kaitlin Goodwin MD 200 [facility] [place] [address] 10/15/2023 11:25 AM EDT Telemedicine Interventional Pain Center, [facility] [address] [place] [address] Barber Robison DO [address] [place] [address] 11/25/2023 10:20 AM EDT Office Visit [address] [phone] Janelle Pimentel MD [address] [place] [address] 09/08/2024 1:30 PM EDT Office Visit Neurology [facility] [address] [facility] [place] [address] Marissa Farris PA-C [address] [facility] [place] [address] Scheduled Procedures Name Priority Associated Diagnoses Date/Ti me COLONOSCOPY FLEXIBLE PROXIMAL DIAGNOSTIC Recall History of colon polyps Health Maintenance Due Date Last Done Comments DISCUSS TOBACCO CESSATION (REFER TO SMARTSET #5138) 1950 Alpha-1 Antitrypsin 01/30/1970 Hepatitis C Screening 01/30/1970 Cologuard 01/30/1997 Fecal Occult Blood Test 01/30/1997 Sigmoidoscopy 01/30/1997 *BISPHONATE OR OTHER ACCEPTABLE MEDICATION NEEDED FOR OSTEOPOROSIS (REFER TO SMARTSET #1146) 05/24/2023 *BASELINE EKG FOR HTN 08/08/2023 Depression Screening 10/16/2023 10/15/2022 Influenza Vaccine (FLU shot) (Season Ended) 2024 GFR 02/02/2024 08/02/2023, 06/13, 12/12/2022, Additional history exists Albumin/Creatinine Ratio 02/09/2024 02/08/2023, 02/10 CKD PHOS USE SMARTSET 55668 02/09/2024 02/08/2023 Mammogram 05/17/2024 05/17/2023, 04/13, 05/08/2022, Additional history exists DXA Scan 06/05/2024 06/05/2022, 06/05/2022 CKD HGB USE SMARTSET 04899 06/24/202406/24, 06/24/2023, 06/12/2022, Additional history exists O2 ASSESSMENT COMPLETED IN PAST YEAR FOR COPD 09/02/2024 09/03/2023 Colonoscopy 05/25/2027 05/25/2022, 05/13, 05/24/2022, Additional history exists Colorectal Cancer Screening 05/25/2027 Lipid Panel 06/12/2027 06/12/2022, 12/0 12/2020, 09/12/2017 Pneumococcal Vaccine: 65+ Years Completed 09/24/2018, 03/07/2017 VITAMIN D LEVEL ONCE IN A LIFETIME-USE SMARTSET# [id number] Completed 02/23/2022 RETIRED - COLONOSCOPY-EVERY 5 YRS [...] filedocumented as of this encounter Care Teams Room Cleaner Relationship Specialty Start Date End Date Janelle Pimentel MD [address] [place] [address] PCP - General Internal Medicine 02/19/22 documented as of this encounter
--- OUTSIDE RECORDS SUMMARY | 2024-02-27 13:34 | External Medical Summary | Summary of Care ---
Author Name Unknown Organization [facility] Address [address] [place] [address] Phone [phone] Care Team Providers Care Internet Salesperson Name Role Phone Janelle Pimentel MD Primary Care Provider [phone] Reason for Visit * Reason Comments eRx-Medication Refill Encounter Details Date Type Department Care Team (Late st Contact Info) Description 09/23/2023 Refill [facility] [address] [place] [address] Janelle Pimentel MD [address] [place] [address] Stage 3b chronic kidney disease [...] as of this encounter (statuses as of 09/26/2023) Medications Medication Sig Dispensed Refills Start Date End Date Status Vitamin C 500 MG Oral Tablet (Ascorbic Acid) Take 1 Tablet by mouth. 0 Active Vitamin E 450 MG (1000 UT) Oral Capsule Take 1 Capsule by mouth. 0 Active D3-1000 25 MCG (1000 UT) Oral Capsule (Cholecalciferol) Take 1 Capsule by mouth in the morning. 0 Active Elderberry 500 MG Oral Capsule Take 1 Capsule by mouth in the morning. 0 Active Docusate Sodium 100 MG Oral Tablet Take 1 Tablet by mouth daily as needed. 0 Active One-Daily Multi Vitamins Oral Tablet Take 1 Tablet by mouth in the morning. 0 Active Echinacea 400 MG Oral Capsule Take 1 Capsule by mouth in the morning. 0 Active Calcium Carb-Cholecalcifero l 600-20 MG-MCG Oral Tablet Take by mouth. 0 Active NATURAL SUPPLEMENT Take 2 Capsules by mouth in the morning and 2 Capsules before bedtime. Wellness Formula. 0 Active hydrOXYzine HCl 25 MG Oral Tablet [...] at bedtime. 90 Tablet 2 3 Active amLODIPine Besylate 2.5 MG Oral Tablet (Norvasc) Take 1 Tablet by mouth every night at bedtime. 90 Tablet 3 3 Active Trulance 3 MG Oral Tablet [...] 1 Tablet by mouth in the morning. 0 4 Active Fluticasone Propionate 50 MCG/ACT Nasal Suspension (Flonase) Administer 2 Sprays into each nostril in the morning. 48 g 0 4 Active Additional Information Patient not taking.Reported [...] MOUTH IN THE MORNING 100 Tablet 0 4 Active Atorvastatin Calcium 40 MG Oral Tablet (Lipitor) TAKE ONE TABLET BY MOUTH EVERY MORNING 90 Tablet 2 3 09/25/19 24 Discontinued documented as of this encounter (statuses as of 09/26/2023) Active Problems Problem Noted Date Diagnosed Date [...] as of this encounter (statuses as of 09/26/2023) Resolved Problems Problem Noted Date Diagnosed Date Resolved Date COPD, mild 05/22/2022 09/19/2022 Overview: Per COPD GOLD Classification Hyperlipidemia 02/19/2022 05/22/2022 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 02/19/2022 05/22/2022 documented as of this encounter (statuses as of 09/26/2023) Immunizations Name Administration Dates Next Due Pneumococcal [...] 09/26/2023 11:47 AM EDT Received message from [facility] regarding patient needing labs. Call Placed, Left message on voicemail advising of required labs Thank you, Darby Mendoza Manufacturer Agent [employer] 09/26/2023, 11:47 AM * Telephone Encounter - Alexx Cota [facility] - 09/25/2023 9:30 AM EDTSigned Prescriptions: Disp Refills Atorvastatin Calcium 40 MG Oral Tablet (Li*100 Ta*0 Sig: TAKE 1 TABLET BY MOUTH IN THE MORNING Authorizing Provider: JANELLE PIMENTEL Ordering User: ALEXX COTA * Telephone Encounter - Alexx Cota [facility] - 09/25/2023 9:26 AM EDT Provided 90 [...] scheduled office visit 11/25/2023. Thanks, Alexx Cota, R.Ph. Clinical Pharmacist [facility] Clinical Pharmacy Services [phone] ext [phone] 09/25/2023,9:29 AM documented in this encounter Plan of Treatment Upcoming Encounters Date Type Department Care Team (Late st Contact Info) Description 10/08/2023 12:00 PM EDT Office Visit Nephrology, [facility] [address] [facility] [address] Kaitlin Goodwin MD [address] [facility] [place] [address] 10/15/2023 11:25 AM EDT Office Visit Interventional Pain Center, [facility] [address] [facility] [place] [address] Barber Robison DO [address] [place] [address] 10/18/2023 1:00 PM EDT Nurse Only Ancillary Department, [place] [address] [place] [address] [place], Nurse [facility] [place] [address] 11/25/2023 10:20 AM EDT Office Visit Family Practice, [place] [address] [place] [address] Janelle Pimentel MD [address] [place] [address] 09/08/2024 1:30 PM EDT Office Visit Neurology [facility] [address] [facility] [place] [address] Marissa Farris PA-C [address] [place] [address] Scheduled Orders Name Type Priority Associated Diagnoses Orde r Schedule ALBUMIN / CREATININE RATIO, URINE Lab Routine Stage 3b chronic kidney disease (HCC) Expected: 09/26/2023 (Approximate), Expires: 09/24/2024 LIPID PANEL WITH DIRECT LDL IF TG IS HIGH Lab Routine History of TIA (transient ischemic attack) Hyperlipidemia, unspecified hyperlipidemia type Expected: 09/26/2023 (Approximate), Expires: 09/24/2024 RENAL FUNCTION PANEL Lab Routine Stage 3b [...] 02/09/2024 02/08/2023, 02/10 CKD PHOS USE SMARTSET 65948 02/09/2024 02/08/2023 Mammogram 05/17/2024 05/17/2023, 04/13, 05/08/2022, Additional history exists DXA Scan 06/05/2024 06/05/2022, 06/05/2022 CKD HGB USE SMARTSET 11732 06/24/202406/24, 06/24/2023, 06/12/2022, Additional history exists O2 ASSESSMENT COMPLETED IN PAST YEAR FOR COPD 09/02/2024 09/03/2023 Colonoscopy 05/25/2027 05/25/2022, 05/13, 05/24/2022, Additional history exists Colorectal Cancer Screening 05/25/2027 Lipid Panel 06/12/2027 06/12/2022, 12/0 12/2020, 09/12/2017 Pneumococcal Vaccine: 65+ Years Completed 09/24/2018, 03/07/2017 VITAMIN D LEVEL ONCE IN A LIFETIME-USE SMARTSET# [id number] Completed 02/23/2022 RETIRED - COLONOSCOPY-EVERY 5 YRS [...] as of this encounter Visit Diagnoses Diagnosis Stage 3b chronic kidney disease (HCC)- Primary History of TIA (transient ischemic attack) Transient ischemic attack (TIA), and cerebral infarction without residual deficits Hyperlipidemia, unspecified hyperlipidemia type documented in this encounter Care Teams Internet Salesperson Relationship Specialty Start Date End Date Janelle Pimentel MD [address] [place], [place] [phone] PCP - General Internal Medicine 02/19/22 documented as of this encounter
--- OUTSIDE RECORDS SUMMARY | 2024-02-27 13:34 | External Medical Summary | Summary of Care ---
Author Name Unknown Organization [facility] Address [address] [place] [address] Phone [phone] Care Team Providers Care Mix Mill Tender Name Role Phone Janelle Pimentel MD Primary Care Provider [phone] Reason for Visit * Reason Comments eRx-Medication Refill Encounter Details Date Type Department Care Team (Late st Contact Info) Description 09/08/2023 Refill [facility] [address] [place] [address] Janelle Pimentel MD [address] [place] [address] Allergies Active Allergy Reactions Criticality [...] as of this encounter (statuses as of 09/09/2023) Medications Medication Sig Dispensed Refills Start Date End Date Status Vitamin C 500 MG Oral Tablet (Ascorbic Acid) Take 1 Tablet by mouth. 0 Active Vitamin E 450 MG (1000 UT) Oral Capsule Take 1 Capsule by mouth. 0 Active D3-1000 25 MCG (1000 UT) Oral Capsule (Cholecalciferol ) Take 1 Capsule by mouth in the [...] mouth in the morning. 0 Active Calcium Carb-Cholecalcif donna 600-20 MG-MCG Oral Tablet Take by mouth. 0 Active NATURAL SUPPLEMENT Take 2 Capsules by mouth in the morning and 2 Capsules before bedtime. Wellness Formula. 0 Active hydrOXYzine HCl 25 MG Oral Tablet TAKE 1 TABLET BY MOUTH THREE TIMES DAILY -IN THE MORNING, AT NOON, AND BEFORE BEDTIME 270 Tablet 2 02/16/2023 Active Atorvastatin Calcium 40 MG Oral Tablet (Lipitor) TAKE ONE TABLET BY MOUTH EVERY MORNING 90 Tablet 2 02/19/2023 Active Methocarbamol 500 MG Oral Tablet (Robamol) [...] 62.5-25 MCG/ACT Inhalation Aerosol Powder Breath Activated (umeclidinium-vi lanterol)Indicat ions:breathing Inhale 1 Puff by mouth in the morning. 90 Each 3 02/26/2023 Active Albuterol Sulfate HFA 108 (90 Base) MCG/ACT Inhalation Aerosol Solution Inhale 2 Puffs by mouth every 6 hours as needed (SOB). 18 g 5 07/25/2023 Active hydroCHLOROthiaz victorino 12.5 MG Oral TabletIndication s:HTN, goal below 140/90 Take 1 Tablet by mouth in the morning. 0 07/29/2023 Active Fluticasone Propionate 50 MCG/ACT Nasal Suspension (Flonase) Administer 2 Sprays into each nostril in the morning. 48 g 0 07/29/2023 Active Additional Information Patient not taking.Reported [...] THE TABLET 70 Tablet 4 09/09/2023 Active Pantoprazole Sodium 40 MG Oral Tablet Delayed Release (Protonix) Take 1 Tablet by mouth in the morning. 30 minutes before the first meal of the day. Do not crush, split or chew the tablet. 90 Tablet 2 02/19/2023 4 Discontinued documented as of this encounter (statuses as of 09/09/2023) Active Problems Problem Noted Date Diagnosed Date [...] as of this encounter (statuses as of 09/09/2023) Resolved Problems Problem Noted Date Diagnosed Date Resolved Date COPD, mild 05/22/2022 09/19/2022 Overview: Per COPD GOLD Classification Hyperlipidemia 02/19/2022 05/22/2022 Systolic heart failure secantonia hayes to idiopathic cardiomyopathy 02/19/2022 05/22/2022 documented as of this encounter (statuses as of 09/09/2023) Immunizations Name Administration Dates Next Due Pneumococcal [...] encounter Miscellaneous Notes * Telephone Encounter - Marissa Reilly [facility] - 09/09/2023 6:31 PM EDTSigned Prescriptions: Disp Refills Pantoprazole Sodium 40 MG Oral Tablet Jailene*70 Tab*4 Sig: TAKE 1 TABLET BY MOUTH IN THE MORNING 1/2 HOUR BEFORE THE FIRST MEAL OF THE DAY. DO NOT CRUSH, SPLIT OR CHEW THE TABLETAuthorizing Provider: Luis Felipe PIMENTEL User: MARISSA REILLY documented in this encounter Plan of Treatment Upcoming Encounters Date Type Department Care Team (Late st Contact Info) Description 09/24/2023 10:20 AM EDT Office Visit Nephrology, [facility] [address] [place] [address] Kaitlin Goodwin MD [address] [place] [address] 10/15/2023 11:25 AM EDT Office Visit Interventional Pain Center, [facility] [address] [facility] [place] [address] Barber Robison DO [facility] [place] [phone] 10/18/2023 1:00 PM EDT Nurse Only Ancillary Department, [place] [address] [place], [place] [phone] [place], Nurse [facility] [address] [place] [address] 11/25/2023 10:20 AM EDT Office Visit Family [facility], [place] [address] [facility] [address] Janelle Pimentel MD [address] [place] [address] 09/08/2024 1:30 PM EDT Office Visit Neurology [address] [address] [place] [address] [facility] [place] [address] Marissa Farris PA-C [address] [place] [address] Scheduled Procedures Name Priority Associated Diagnoses Date/Ti [...] 02/09/2024 02/08/2023, 02/10 CKD PHOS USE SMARTSET 61565 02/09/2024 02/08/2023 Mammogram 05/17/2024 05/17/2023, 04/13, 05/08/2022, Additional history exists DXA Scan 06/05/2024 06/05/2022, 06/05/2022 CKD HGB USE SMARTSET 84038 06/24/202406/24, 06/24/2023, 06/12/2022, Additional history exists O2 ASSESSMENT COMPLETED IN PAST YEAR FOR COPD 09/02/2024 09/03/2023 Colonoscopy 05/25/2027 05/25/2022, 05/13, 05/24/2022, Additional history exists Colorectal Cancer Screening 05/25/2027 Lipid Panel 06/12/2027 06/12/2022, 12/0 12/2020, 09/12/2017 Pneumococcal Vaccine: 65+ Years Completed 09/24/2018, 03/07/2017 VITAMIN D LEVEL ONCE IN A LIFETIME-USE SMARTSET# [id number] Completed 02/23/2022 RETIRED - COLONOSCOPY-EVERY 5 YRS [...] filedocumented as of this encounter Care Teams Mix Mill Tender Relationship Specialty Start Date End Date Janelle Pimentel MD [address] [place] [address] PCP - General Internal Medicine 02/19/22 documented as of this encounter
--- OUTSIDE RECORDS SUMMARY | 2024-02-27 13:34 | External Medical Summary ---
Author Name Unknown Address Unknown Organization K09[facility] [place] [place] [address] Laboratory Report Ordering Provider Test Date Status BEATA COFFEY 10/08/2023 11:54:24 Final Observation Date Value Abnormality Reference (Units ) Status BUN 10/08/2023 11:54:24 21 Above high normal 6-20 (mg/dL) Final Creatinine 10/08/2023 11:54:24 1.2 Above high normal 0.5-1.0 (mg/dL) Final Glomerular filtration rate/1.73 sq M.predicted [Volume Rate/Area] in Serum, Plasma or Blood by Creatinine-based formula (CKD-EPI) 10/08/2023 11:54:24 47 Below low normal >=60 (mL/min) Final eGFR is calculated based on the CKD-EPI 2020 equation Sodium 10/08/2023 11:54:24 141 135-146 (m mol/L) Final Potassium 10/08/2023 11:54:24 3.9 3.5-5.1 (m mol/L) Final Cl 10/08/2023 11:54:24 104 98-107 (mm ol/L) Final CO2 10/08/2023 11:54:24 26 22-32 (mmo l/L) Final Anion gap 10/08/2023 11:54:24 11 7-15 (mmol /L) Final Glucose 10/08/2023 11:54:24 178 Above high normal 70 -120 (mg/dL) Final Calcium 10/08/2023 11:54:24 9.4 8.4-10.2 ( mg/dL) Final Albumin 10/08/2023 11:54:24 4.2 3.8-5.0 (g /dL) Final Phosphate 10/08/2023 11:54:24 3.2 2.5-4.8 (m g/dL) Final Performing Location [facility] [place] [address]
--- OUTSIDE RECORDS SUMMARY | 2024-02-27 13:34 | External Medical Summary | Summary of Care ---
Author Name Unknown Organization [facility] Address [address] [place] [address] Phone [phone] Care Team Providers Care Oil Change Technician Name Role Phone Janelle Pimentel MD Primary Care Provider [phone] Reason for Visit * Reason Comments eRx-Medication Refill Encounter Details Date Type Department Care Team (Late st Contact Info) Description 10/03/2023 Refill [facility] [address] [place] [address] Janelle Pimentel MD [address] [place] [address] Allergies Active Allergy Reactions Criticality [...] as of this encounter (statuses as of 10/04/2023) Medications Medication Sig Dispensed Refills Start Date [...] AT BEDTIME 100 Tablet 2 4 Active amLODIPine Besylate 2.5 MG Oral Tablet (Norvasc) Take 1 Tablet by mouth every night at bedtime. 90 Tablet 3 3 10/04/19 24 Discontinued documented as of this encounter (statuses as of 10/04/2023) Active Problems Problem Noted Date Diagnosed Date [...] as of this encounter (statuses as of 10/04/2023) Resolved Problems Problem Noted Date Diagnosed Date Resolved Date COPD, mild 05/22/2022 09/19/2022 Overview: Per COPD GOLD Classification Hyperlipidemia 02/19/2022 05/22/2022 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 02/19/2022 05/22/2022 documented as of this encounter (statuses as of 10/04/2023) Immunizations Name Administration Dates Next Due Pneumococcal [...] encounter Miscellaneous Notes * Telephone Encounter - Lul Hardin [facility] - 10/04/2023 1:23 PM EDT Signed Prescriptions: Disp Refills amLODIPine Besylate 2.5 MG Oral Tablet (No*100 Ta*2 Sig: TAKE 1 TABLET BY MOUTH EVERY NIGHT AT BEDTIMEAuthorizing Provider: Luis Felipe PIMENTEL User: LUL HARDIN documented in this encounter Plan of Treatment Upcoming Encounters Date Type Department Care Team (Late st Contact Info) Description 10/08/2023 12:00 PM EDT Office Visit Nephrology, [facility] [address] [place] [address] Kaitlin Goodwin MD [address] [place] [address] 10/15/2023 11:25 AM EDT Telemedicine Interventional Pain Center, [facility] [place] [address] Barber Robison DO [address] [facility] [place] [phone] 11/25/2023 10:20 AM EDT Office Visit [facility] [address] [facility] [phone] Janelle Pimentel MD [address] [place], [place] [phone] 09/08/2024 1:30 PM EDT Office Visit Neurology [facility] [address] [place] [address] Marissa Farris PA-C [address] [place] [address] Scheduled Procedures Name Priority Associated Diagnoses Date/Ti me COLONOSCOPY FLEXIBLE PROXIMAL DIAGNOSTIC Recall History of colon polyps Health Maintenance Due Date Last Done Comments DISCUSS TOBACCO CESSATION (REFER TO SMARTSET #5093) 1950 Alpha-1 Antitrypsin 01/30/1970 Hepatitis C Screening 01/30/1970 Cologuard 01/30/1997 Fecal Occult Blood Test 01/30/1997 Sigmoidoscopy 01/30/1997 *BISPHONATE OR OTHER ACCEPTABLE MEDICATION NEEDED FOR OSTEOPOROSIS (REFER TO SMARTSET #1146) 05/24/2023 *BASELINE EKG FOR HTN 08/08/2023 Depression Screening 10/16/2023 10/15/2022 Influenza Vaccine (FLU shot) (Season Ended) 2024 GFR 02/02/2024 08/02/2023, 06/13, 12/12/2022, Additional history exists Albumin/Creatinine Ratio 02/09/2024 02/08/2023, 02/10 CKD PHOS USE SMARTSET 40139 02/09/2024 02/08/2023 Mammogram 05/17/2024 05/17/2023, 04/13, 05/08/2022, Additional history exists DXA Scan 06/05/2024 06/05/2022, 06/05/2022 CKD HGB USE SMARTSET 85196 06/24/202406/24, 06/24/2023, 06/12/2022, Additional history exists O2 ASSESSMENT COMPLETED IN PAST YEAR FOR COPD 09/02/2024 09/03/2023 Colonoscopy 05/25/2027 05/25/2022, 05/13, 05/24/2022, Additional history exists Colorectal Cancer Screening 05/25/2027 Lipid Panel 06/12/2027 06/12/2022, 12/2020, 09/12/2017 Pneumococcal Vaccine: 65+ Years Completed 09/24/2018, 03/07/2017 VITAMIN D LEVEL ONCE IN A LIFETIME-USE SMARTSET# 10078 Completed 02/23/2022 RETIRED - COLONOSCOPY-EVERY 5 YRS [...] filedocumented as of this encounter Care Teams Oil Change Technician Relationship Specialty Start Date End Date Janelle Pimentel MD [address] [place], [place] [phone] PCP - General Internal Medicine 02/19/22 documented as of this encounter
--- OUTSIDE RECORDS SUMMARY | 2024-02-27 13:34 | External Medical Summary | Summary of Care ---
Author Name Unknown Organization [facility] Address [address] [place] [address] Phone [phone] Care Team Providers Care Wool Mixer Name Role Phone Janelle Pimentel MD Primary Care Provider [phone] Reason for Visit * Reason Onset Date Comments Remote Patient Monitoring Alert 09/24/2023 Encounter Details Date Type Department Care Team (Late st Contact Info) Description 09/24/2023 Home Monitoring Care Coordination [address] [place] [address] HepDary flores, [employer] SECURITY PROGRAM SPECIALIST HTN, goal below 140/90* Allergies Active Allergy [...] as of this encounter (statuses as of 09/24/2023) Medications Medication Sig Dispensed Refills Start Date [...] mouth in the morning. 0 Active Calcium Carb-Cholecalcifer ol 600-20 MG-MCG Oral Tablet Take by mouth. [...] 62.5-25 MCG/ACT Inhalation Aerosol Powder Breath Activated (umeclidinium-reece nterol)Indications :breathing Inhale 1 Puff by mouth in the morning. 90 Each 3 02/26/2023 Active Albuterol Sulfate HFA 108 (90 Base) MCG/ACT Inhalation Aerosol Solution Inhale 2 Puffs by mouth every 6 hours as needed (SOB). 18 g 5 07/25/2023 Active hydroCHLOROthiazid e 12.5 MG Oral TabletIndications: HTN, goal below 140/90 Take 1 Tablet by [...] THE TABLET 70 Tablet 4 09/09/2023 Active documented as of this encounter (statuses as of 09/24/2023) Active Problems Problem Noted Date Diagnosed Date [...] as of this encounter (statuses as of 09/24/2023) Resolved Problems Problem Noted Date Diagnosed Date Resolved Date COPD, mild 05/22/2022 09/19/2022 Overview: Per COPD GOLD Classification Hyperlipidemia 02/19/2022 05/22/2022 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 02/19/2022 05/22/2022 documented as of this encounter (statuses as of 09/24/2023) Immunizations Name Administration Dates Next Due Pneumococcal [...] this encounter Progress Notes * No Kovacs, [facility] - 09/24/2023 4:26 PM EDT 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 Blood Pressure Goal: 140/90 mmHg Type of Alert: Yellow Current Hypertension Medications: Norvasc 2.5mg QHS Restart HCTZ 12.5mg QAM SBP DBP Pulse 149 84 78 144 86 80 139 85 78 138 73 89 134 77 82 145 80 83 146 84 72 Average 142 81 #DIV/0! 80 Hi 149 86 0 89 Lo 134 73 0 72 Range 15 13 0 17 ASSESSMENT & PLAN: BP trending on higher end of her goal, but no changes warranted in medication doses at this time. Consider dose increase of either medications if patient flags again for elevated BP readings. It is also noted that patient gets injections with pain management, and acute pain can also be raising her BP readings at times. MEDICATION CHANGES: none FOLLOW UP: Gary Kovacs [facility] Clinical Pharmacist - Quenching Car Operator Medication Therapy [facility] 09/24/2023, 4:26 PM * Dary Purcell LPN - 09/24/2023 8:05 AM EDT Enma Goff [phone] Enma Goff is currently participating in the [facility] Hypertension Management Program and had a reading on 09/23/2023 of 145/80. Pt has alerted for an Average BP over 7 days > 140/90 . Parameters are currently set as follows: Average BP over 7 days > 140/90 Singular Systolic BP Reading < 90 or > 180 Singular Diastolic BP Reading <50 or > 120 Patient is not reporting new symptoms or [...] 10/08/2023 12:00 PM EDT Office Visit Nephrology, [address] [place] [address] Kaitlin Goodwin MD [address] [facility] [place] [address] 10/15/2023 11:25 AM EDT Office Visit Interventional Pain Center, [facility] [address] [place] [address] Barber Robison DO [address] [place] [phone] 10/18/2023 1:00 PM EDT Nurse Only Ancillary Department, [place] [address] [place] [address] [place] Nurse [facility] [address] [place] [address] 11/25/2023 10:20 AM EDT Office Visit Family Practice, [place] [address] [place] [phone] Janelle Pimentel MD [address] [place] [address] 09/08/2024 1:30 PM EDT Office Visit Neurology [facility] 200 [facility] [place], [place] [address] Marissa Farris PA-C [address] [facility] [place] [address] Scheduled Procedures Name Priority Associated Diagnoses Date/Ti [...] 02/09/2024 02/08/2023, 02/10 CKD PHOS USE SMARTSET 16585 02/09/2024 02/08/2023 Mammogram 05/17/2024 05/17/2023, 04/13, 05/08/2022, Additional history exists DXA Scan 06/05/2024 06/05/2022, 06/05/2022 CKD HGB USE SMARTSET 89157 06/24/202406/24, 06/24/2023, 06/12/2022, Additional history exists O2 ASSESSMENT COMPLETED IN PAST YEAR FOR COPD 09/02/2024 09/03/2023 Colonoscopy 05/25/2027 05/25/2022, 05/13, 05/24/2022, Additional history exists Colorectal Cancer Screening 05/25/2027 Lipid Panel 06/12/2027 06/12/2022, 1212/2020, 09/12/2017 Pneumococcal Vaccine: 65+ Years Completed 09/24/2018, 03/07/2017 VITAMIN D LEVEL ONCE IN A LIFETIME-USE SMARTSET# 25036 Completed 02/23/2022 RETIRED - COLONOSCOPY-EVERY 5 YRS [...] hypertension documented in this encounter Care Teams Wool Mixer Relationship Specialty Start Date End Date Janelle Pimentel MD [address] [facility] [place] [phone] PCP - General Internal Medicine 02/19/22 documented as of this encounter
--- OUTSIDE RECORDS SUMMARY | 2024-02-27 13:35 | External Medical Summary | Summary of Care ---
Author Name Unknown Organization [facility] Address [address] [place] [address] Phone [phone] Care Team Providers Care Quarantine Inspector Name Role Phone Janelle Pimentel MD Primary Care Provider [phone] Reason for Visit * Reason Comments Tremor Encounter Details Date Type Department Care Team (Late st Contact Info) Description 09/03/2023 10:00 AM EDT Office Visit Neurology [facility] [address] [place] [address] Pratima Meng PA-C [address] [place] [address] Tremor*; Gait difficulty Allergies Active Allergy Reactions Criticality Noted Date [...] as of this encounter (statuses as of 09/03/2023) Medications Medication Sig Dispensed Refills Start Date [...] BEFORE BEDTIME 180 Tablet 2 02/19/2023 Active Pantoprazole Sodium 40 MG Oral Tablet Delayed Release (Protonix) Take 1 Tablet by mouth in the morning. 30 minutes before the first meal of the day. Do not crush, split or chew the tablet. 90 Tablet 2 02/19/2023 Active traZODone HCl 100 [...] the morning. 90 Tablet 2 08/26/2023 Active documented as of this encounter (statuses as of 09/03/2023) Active Problems Problem Noted Date Diagnosed Date [...] as of this encounter (statuses as of 09/03/2023) Resolved Problems Problem Noted Date Diagnosed Date Resolved Date COPD, mild 05/22/2022 09/19/2022 Overview: Per COPD GOLD Classification Hyperlipidemia 02/19/2022 05/22/2022 Systolic heart failure [facility] freddy to idiopathic cardiomyopathy 02/19/2022 05/22/2022 documented as of this encounter (statuses as of 09/03/2023) Immunizations Name Administration Dates Next Due Pneumococcal Conjugate Vacc, 13 Valent (Prevnar) 09/24/2018 Pneumococcal Polysaccharide PPV23 (Pneumovax) documented as of this encounter Social History Tobacco Use Types Packs/Day Years Used Date Smoking Tobacco: Every Day Cigarettes Last attempted to quit: 01/27/2023 Passive Smoke Exposure: Past Smokeless Tobacco: Never Tobacco Cessation:Ready to Q uit: Not Asked; Counseling Given: Not Answered Alcohol Use Standard Drinks/Week Comments Not Currently [...] Sign Reading Time Taken Comments Blood Pressure 130/70 09/03/2023 10:00 AM EDT Pulse 74 09/03/2023 10:00 AM EDT Temperature 36.4 C (97.5 F) 09/03/2023 10:00 AM E DT Respiratory Rate - - Oxygen Saturation 99% 09/03/2023 10:00 AM EDT Inhaled Oxygen Concentration - - Weight 65.8 kg (145 lb) 09/03/2023 10:00 AM EDT Height - - Body Mass Index 27.62 03/25/2023 12:40 PM EST documented in this encounter Progress Notes * Pratima Meng PA-C - 09/03/2023 9:58 AM EDT HISTORY & PHYSICAL EXAMINATION - NEUROLOGY Name: Enma Goff Date: 09/03/2023 Time: 9:58 AM Referring Provider: Pratima Meng, * Chief Complaint: Chief Complaint Patient presents with Tremor This is a 73 year old right handed woman returns today for follow up for gait issues and tremor. HPI & Source of HPI The patient and family member daughter was the historian, and they are reliable. Enma was seen in our office in the past 03/04/23 for tremor and gait issues. She fell in November and since then she has had numbness and weakness. She had an MRI L spine in [place]. The tremor is mostlyin her voice and some in her hands. She has a strong family history of parkinsons and she is worried that is what she has. She was a long time smoker and quit 5 weeks ago. She lives with her daughter. She is a heavy caffeine drinker but did decrease from 2 pots a day to 1 pot a day. She is currently on gabapentin for pain. She has had no further falls. No other drug use. She has a burning pain down her left leg into her groin. She did have cortisone shots at [facility] they only helped a little and they gave her some steroids to take. The interventional pain mgt injection make her incontinent at night. She says she doesn't have feeling in the peritoneal area. She has a disc of her L spine which she will bring in for us to upload into [employer]. She had an appointment with Dr Pat from ENT but he thinks the issue is a pulmonary issue. When she is at the grocery store if she leans on the cart it helps with the lower back pain. No falls. She had another injection about a month ago with interventional radiology which worked great and there was no associated incontinence. Her gait is much better because the pain in minimal. The tremor is only bothering her when she is writing or concentrating on something. She does think drinking wine at night does help Denies CP, SOB, abdominal pain, N, V. I have reviewed the patient's medications and allergies, past medical, surgical, social and family history, updating these as appropriate. See Histories section of the electronic medical record for adisplay of this information. Patient Active Problem List Diagnosis Code Gastroesophageal reflux disease without esophagitis K21.9 HTN, goal below 130/80 I10 Cervical spinal stenosis M48.02 DDD (degenerative disc disease), lumbar M51.36 Family history of premature CAD Z82.49 S/p nephrectomy Z90.5 Gait difficulty R26.9 Tremor R25.1 History of TIA (transient ischemic attack) Z86.73 Hoarseness of voice R49.0 History of renal cell cancer Z85.528 Peripheral polyneuropathy G62.9 Stage 3b chronic kidney disease ([facility]) N18.32 Food insecurity Z59.41 COPD, group A, by GOLD 2017 classification ([facility]) J44.9 Osteoporosis M81.0 SAMREEN (generalized anxiety disorder) F41.1 Sacroiliitis, not elsewhere classified ([facility]) M46.1 Insomnia G47.00 Constipation K59.00 Family History Problem Relation Age of Onset Cancer Father Heart failure Father Hypertension Father Stroke Father Medications: Are you taking your medications? yes Current Outpatient Medications Medication Sig Dispense Refill Vitamin C 500 MG Oral Tablet (Ascorbic Acid) Take 1 Tablet by mouth. Vitamin E 450 MG (1000 UT) Oral Capsule Take 1 Capsule by mouth. D3-1000 25 MCG (1000 UT) Oral Capsule (Cholecalciferol) Take 1 Capsule by mouth in the morning. Elderberry 500 MG Oral Capsule Take 1 Capsule by mouth in the morning. One-Daily Multi Vitamins Oral Tablet Take 1 [...] NOON, AND BEFORE BEDTIME 270 Tablet 2 Atorvastatin Calcium 40 MG Oral Tablet (Lipitor) TAKE ONE TABLET BY MOUTH EVERY MORNING 90 Tablet 2 Methocarbamol 500 MG Oral Tablet (Robamol) TAKE ONE TABLET BY MOUTH EVERY MORNING AND ONE TABLET BEFORE BEDTIME 180 Tablet 2 Pantoprazole Sodium 40 MG Oral Tablet Delayed Release (Protonix) Take 1 Tablet by mouth in the morning. 30 minutes before the first meal of the day. Do not crush, split or chew the tablet. 90 Tablet 2 traZODone HCl 100 MG Oral Tablet (Desyrel) Take 0.5 Tablets by mouth at bedtime. 90 Tablet 2 amLODIPine Besylate 2.5 MG Oral Tablet (Norvasc) Take 1 Tablet by mouth every night at bedtime. 90 Tablet 3 Trulance 3 MG Oral Tablet (Plecanatide) Take [...] mouth in the morning. 90 Tablet 2 Docusate Sodium 100 MG Oral Tablet Take 1 Tablet by mouth daily as needed. (Patient not taking: Reported on 08/07/2023) Fluticasone Propionate 50 MCG/ACT Nasal Suspension (Flonase) [...] sores Wellbutrin [Bupropion] Neuro complications (Please comment) Review of Systems: A total number of 10 systems were reviewed pertinent negative and positives not addressed in HPI are listed in the following review. Physical Exam: Constitutional: BP 130/70 (BP Site: Right Arm, BP Position: Sitting, BP Cuff Size: Regular) | Pulse74 | Temp 36.4 C (97.5 F) (Tympanic) | Wt 65.8 kg (145 lb) | SpO2 99% | BMI 27.62 kg/m | BSA 1.68 m , appearance nourished, healthy, and normal, mild voice tremor Ears, Nose, Mouth and Throat: mucous membranes moist, no injection and skin normal, eyes normal Cardiovascular: normal S-1 and S-2 and regular rate and rhythm Respiratory: course breath sounds Musculoskeletal: no peripheral edema Skin: normal and intact Eyes: eyes normal and sclera clear and extraocular muscles intact (EOMI) NEUROLOGIC EXAMINATION: Mental status: Alert and interactive Oriented to full date and location Oriented to person Speech fluent with no evidence of aphasia Cranial Nerves Normal findings for Cranial Nerves II - XII Coordination: rapid alternating movements are intact: Bilateral and on [id number], fine reaching tremor, no resting tremor or cogwheeling Gait/Stance: Posture normal. Gait normal: with steady with steps, base, arm swing, and slightly orthopedic tandem gait. Motor: Negative for pronator drift of out stretched arms with eyes closed. Strength: Normal - 5/5 all extremities LABORATORY: Recent labs reviewed Review of prior Studies: No recent imaging available. Impression: Enma Goff is a 73 year old woman with a history of tremor. Her neurologic examination today reveals no new focal deficit. The history and examination are suggestive of diagnosis/problem list. Testing and Referrals ordered: none ICD-10-CM 1. Tremor R25.1 2. Gait difficulty R26.9 Return in 1 year with Marissa CALDERON Tremor is manageable without medications at this point would not start until effecting ADLs Continue to follow with pain mgt for injections for back and hip pain- helping gait issues Sleep issues - may need a sleep study will defer to PCP PCP for medical management Call with questions concerns Medical Decision Making (determined by lowest of 2 of 3 elements): The medical decision making element of the number and complexity of problems addressed included at least 2 or more stable chronic illnesses (level 4). The medical decision making element of risk of complications, morbidity, and mortality of patient management is moderate (level 4) due to prescription drug management (moderate risk). The medical decision making element of the amount and complexity of data reviewed and analyzed included an independent interpretation of a test (level 4 at least). When 2 of 3 reach level 4, then this element is considered extensive (level 5). I personally spent a total of 30 minutes. This time was for a new office or established visit and was on the same calendar day. Education / Consultation - Topics covered as I spent 20 minutes, which is greater than 50% of this visit, counseling the patient on: Diagnostic Results Prognosis Importance of compliance with chosen treatment options Risk factor reductions Patient and family education Consulted with physician: Dakota Naylor DO was available for direct supervision. Copy of note sent to PCP and Referring Provider. Total time of visit: 30 minutes. Pratima Meng PA-C Neurology [address] [address] 09/03/2023 9:58 AM documented in this encounter Nursing Notes * Samina Hanks LPN - 09/03/2023 9:59 AM EDT Chief Complaint Patient presents with Tremor documented in this encounter Plan of Treatment Upcoming Encounters Date Type Department Care Team (Late st Contact Info) Description 09/24/2023 10:20 AM EDT Office Visit Nephrology, [facility] [address] [facility] [place] [address] Kaitlin Goodwin MD [address] [facility] [place] [address] 10/15/2023 11:25 AM EDT Office Visit Interventional Pain Center, [facility] [address] [place] [address] Barber Robison DO [address] [place] [address] 10/18/2023 1:00 PM EDT Nurse Only Ancillary Department, [place] [address] [place] [address] [place], Nurse [facility] [address] [place] [address] 11/25/2023 10:20 AM EDT Office Visit [facility] [place] [address] [place] [id number] Janelle Pimentel MD [address] [place], [place] [id number] 09/08/2024 1:30 PM EDT Office Visit Neurology [facility] [address] [facility] [place] [address] Marissa Farris PA-C [address] [place] [address] Scheduled Procedures Name Priority Associated Diagnoses Date/Ti me COLONOSCOPY FLEXIBLE PROXIMAL DIAGNOSTIC Recall History of colon polyps Health Maintenance Due Date Last Done Comments DISCUSS TOBACCO CESSATION (REFER TO SMARTSET #3291) 1950 Alpha-1 Antitrypsin 01/30/1970 Hepatitis C Screening 01/30/1970 *BISPHONATE OR OTHER ACCEPTABLE MEDICATION NEEDED FOR OSTEOPOROSIS (REFER TO SMARTSET #1146) 05/24/2023 *BASELINE EKG FOR HTN 08/08/2023 Depression Screening 10/16/2023 10/15/2022 Influenza Vaccine (FLU shot) (Season Ended) 2024 GFR 02/02/2024 08/02/2023, 06/13, 12/12/2022, Additional history exists Albumin/Creatinine Ratio 02/09/2024 02/08/2023, 02/10 CKD PHOS USE SMARTSET [id number] 02/09/2024 02/08/2023 Mammogram 05/17/2024 05/17/2023, 04/13, 05/08/2022, Additional history exists DXA Scan 06/05/2024 06/05/2022, 06/05/2022 CKD HGB USE SMARTSET [id number] 06/24/202406/24, 06/24/2023, 06/12/2022, Additional history exists O2 ASSESSMENT COMPLETED IN PAST YEAR FOR COPD 09/02/2024 09/03/2023 COLONOSCOPY-EVERY 5 YRS AGES 18-100 05/25/2027 05/25/2022, 05/25/2022, 05/24/2022, Additional history exists Lipid Panel 06/12/2027 06/12/2022, 12/12/2020, 09/12/2017 Pneumococcal Vaccine: 65+ Years Completed 09/24/2018, 03/07/2017 VITAMIN D LEVEL ONCE IN A LIFETIME-USE SMARTSET# [id number] Completed 02/23/2022 Colonoscopy Discontinued 05/25/2022, 05/13, 05/24/2022, Additional history exists Colorectal Cancer Screening Discontinued COVID-19 Vaccine Discontinued Cologuard Discontinued DTaP,Tdap,and Td Vaccines Discontinued Fecal Occult Blood Test Discontinued GARDASIL-HPV IMMUNIZATION SERIES Aged Out No longer eligible based on patient's age to complete this topic Hepatitis B Aged Out No longer eligi ble based on patient's age to complete this topic MENINGOCOCCAL (MENACTRA/MENVEO) Aged Out No longer eligible based on patient's age to complete this topic Sigmoidoscopy Discontinued Zoster Vaccines Discontinued documented as of this encounter Medical Devices Not on filedocumented as of this encounter Visit Diagnoses Diagnosis Tremor- Primary Abnormal involuntary movements Gait difficulty Abnormality of gait documented in this encounter Care Teams Quarantine Inspector Relationship Specialty Start Date End Date Janelle Pimentel MD [address] [place] [address] PCP - General Internal Medicine 02/19/22 documented as of this encounter"
[2024-02-27] MEDS ORDERED: PROCHLORPERAZINE 5 MG in SYRINGE 4 ML IV PRN (15:27)
--- NOTE | 2024-02-27 15:30 | Hospitalist Progress Note ---
Date of Service February 27, 2024 Assessment & Plan (1) Acute UTI: (2) Metabolic encephalopathy: (3) HTN (hypertension): (4) CKD (chronic kidney disease) stage 3, GFR 30-59 ml/min: (5) Pre-diabetes: (6) COPD (chronic obstructive pulmonary disease): (7) Tobacco abuse: Plan Patient with acute UTI metabolic encephalopathy subsequent nausea associated with this. Continue some gentle IV hydration Continue Rocephin, follow urine culture and sensitivity Therapies Replace potassium Admission and Anticipated Discharge Date Admission Date: February 26, 2024 Subjective Patient still feels a bit weak especially with activity. Still nauseated not much oral intake at all today Physical Exam Physical Exam: Constitutional: Alert, ill in appearance, nontoxic HEENT: Mucous membranes moist. Lungs: Clear to auscultation, decreased, no wheezes rales or rhonchi CV: S1-S2, regular Abdomen: Soft, nontender, nondistended Extremities: No significant edema Neuro: No focal deficits Psych: Cooperative, normal mood Results & Data Results & Data Vital Signs (Past 12 Hours) Vital Signs Temp Pulse Resp BP Pulse Ox O2 Del Method 02/27/24 15:06 36.8 C 68 16 134/80 97 Room Air 02/27/24 07:36 36.7 C 58 L 16 145/83 H 98 Room Air Diagnostic Findings Reviewed imaging, laboratory and diagnostic studies. Pertinent findings as below. WBCs 6.8 Hemoglobin 11.6 Potassium 3.4 Creatinine 1.25 Urine culture growing greater than 100,000 colonies gram-negative bacilli
[2024-02-27] MEDS: POTASSIUM CHLORIDE CRTAB 20 MEQ TABCR PO STA (15:54)
[2024-02-27] MEDS: SODIUM CHLORIDE 0.9% 500 ML IV SCH (15:54)
[2024-02-27] MEDS: POTASSIUM CHLORIDE CRTAB 20 MEQ TABCR PO ONE (20:28)
[2024-02-28 07:19] VITALS: BP 163/80; PULSE 61; RESP 19; TEMP 97.7; O2SAT 97
[2024-02-28 07:57] LABS: BUN Creatinine Ratio 18.2 (10-20); Calcium 9.1 mg/dl (8.6-10.3); Creatinine Clr Calc Pharmacy 33.7 ml/min; Potassium 4.3 mmol/L (3.5-5.1)
--- NOTE | 2024-02-28 12:02 | Discharge Summary ---
Discharge Summary Date of Service February 28, 2024 Principal Dx & Hospital Course #1 = Principal Diagnosis (1) Acute UTI: (2) Metabolic encephalopathy: (3) HTN (hypertension): (4) CKD (chronic kidney disease) stage 3, GFR 30-59 ml/min: (5) Pre-diabetes: (6) COPD (chronic obstructive pulmonary disease): (7) Tobacco abuse: Plan Patient presented to the emergency room with confusion. Evaluation consistent with urinary tract infection. Patient was cared for in the hospital. Given some fluid resuscitation. Placed on broad-spectrum antibiotics for presumed urinary tract infection. Urine culture grew out gram-negative bacilli. She steadily improved through her hospitalization. She returned to her baseline mental status. Her nausea improved and her appetite improved. On the day of discharge she is feeling well. She was afebrile. Other vital signs are stable. She had no abdominal pain or urinary complaints. Should be transition to oral third-generation antibiotic. Anticipate discharge home with outpatient follow- up. Daughters at bedside and agreeable to plan of care as well. Notes For Next Care Provider Follow final urine culture and sensitivity Medication Changes From Visit [employer] added to treat UTI Admission HPI Per Admitting Provider This is a 74-year-old female who has a significant past medical history of HTN, COPD, prediabetes, GERD, CKD stage III, peripheral polyneuropathy, history of nephrectomy 2/2 history of renal cell cancer, history of TIA, Chronic constipation and SAMREEN who presents to ED secondary to feeling unwell x 1 day. She was seen and evaluated in PCP office today complaining of dizziness, fat igue, nausea and generally feeling unwell. Per PCP note patient appeared disoriented and lethargic and recommended that she be transported via ambulance to ED for further evaluation. Patient states she was at a picnic on Saturday. She fell ill yesterday. She felt feverish, lightheaded, nausea, poor appetite and dysuria. She also felt, "foggy." She lives alone and occasionally walks with cane. She still drives. She did not take her temperature but was sweating. She denies chills, syncope, chest pain, vomiting, hematuria, melena or hematochezia. She has chronic SOB and cough 2/2 to COPD. She feels this is unchanged. She is unable to vomit due to prior hx of gastric bypass. She had 1 episode of diarrhea yesterday, but she has IBS and fluctuates between diarrhea and constipation. In ED pts urine looked concerning for UTI. Her renal fxn is at baseline. She does not meet SIRS/Sepsis Criteria. She was started on IV rocephin. Admission Exam Per Admitting Provider See H&P Discharge Exam Constitutional: Alert, nontoxic HEENT: Mucous membranes moist. Lungs: Clear to auscultation, decreased, no wheezes rales or rhonchi CV: S1-S2, regular Abdomen: Soft, nontender, nondistended Extremities: No significant edema Neuro: No focal deficits Psych: Cooperative, normal mood, mentation clear and oriented Updated Medication List Medication Instructions Recorded Confirmed Type albuterol sulfate 90 mcg/actuation 1 - 2 puff inhalation UD PRN 02/26/24 02/26/24 History aerosol inhaler SOB/WHEEZING amlodipine 2.5 mg tablet 2.5 mg PO HS 02/26/24 02/26/24 History atorvastatin 40 mg tablet 40 mg PO HS 02/26/24 02/26/24 History cetirizine 10 mg tablet 10 mg PO QAM 02/26/24 02/26/24 History duloxetine 60 mg capsule,delayed 60 mg PO QAM 02/26/24 02/26/24 History release fluticasone propionate 50 1 spray intranasal DAILY PRN 02/26/24 02/26/24 History mcg/actuation nasal Congestion spray,suspension hydrochlorothiazide 12.5 mg tablet 12.5 mg PO DAILY 02/26/24 02/26/24 History hydroxyzine HCl 25 mg tablet 25 mg PO BID Unknown 02/26/24 02/26/24 History methocarbamol 500 mg tablet 500 mg PO BID PRN Muscle Spasm 02/26/24 02/26/24 History pantoprazole 40 mg tablet,delayed 40 mg PO DAILY 02/26/24 02/26/24 History release plecanatide 3 mg tablet (Trulance) 3 mg PO BID 02/26/24 02/26/24 History pregabalin 75 mg capsule 75 mg PO BID 02/26/24 02/26/24 History trazodone 100 mg tablet 50 mg PO HS 02/26/24 02/26/24 History umeclidinium 62.5 mcg-vilanterol 1 inh inhalation BID 02/26/24 02/26/24 History 25 mcg/actuation powdr for inhalation (Anoro Ellipta) zolpidem 5 mg tablet 5 mg PO HS PRN Sleep 02/26/24 02/26/24 History cefpodoxime 200 mg tablet 200 mg PO BID 5 days #10 tabs 02/28/24 Rx Hospital Stay Data Consultations 02/26/24 16:24 ED Decision to Admit Stat Diagnostic Imagining Performed 02/26/24 14:09 CT angio head w con Stat CT angio neck with con Stat CT head/brain wo con Stat Reviewed imaging, laboratory and diagnostic studies. Pertinent findings as below. Creatinine 1.32 Electrolytes within normal range Urine culture growing gram-negative bacilli, sensitivities pending Blood cultures no growth to date Pending Results Patient Have Any Pending Studies at Discharge: Yes Discharge Instructions Given to Patient (Per Discharging Provider) Complete course of antibiotics Strongly recommend you stop smoking Total Time Total Time Spent Total Time Spent (In Minutes): 26
[2024-02-28] MEDS: PLECANATIDE 3 MG TABLET PO SCH (13:00)
== END 2024-02-28 14:15 | disposition home or self-care (01) | DRG 689 ==
LOC: ED 11:46 → SUATTDRO 16:36 → 3E 16:36
DX: Z88.0 Allergy status to penicillin; J44.9 Chronic obstructive pulmonary disease, unspecified; Z11.52 Encounter for screening for COVID-19; Z66 Do not resuscitate; Z90.5 Acquired absence of kidney; K21.9 Gastro-esophageal reflux disease without esophagitis; Z85.528 Personal history of other malignant neoplasm of kidney; I12.9 Hypertensive chronic kidney disease with stage 1 through stage 4 chronic kidney disease, or unspecified chronic kidney disease; Z88.8 Allergy status to other drugs, medicaments and biological substances; Z79.899 Other long term (current) drug therapy; R73.03 Prediabetes; F17.210 Nicotine dependence, cigarettes, uncomplicated; G93.41 Metabolic encephalopathy; F10.90 Alcohol use, unspecified, uncomplicated; G62.9 Polyneuropathy, unspecified; M81.0 Age-related osteoporosis without current pathological fracture; F41.1 Generalized anxiety disorder; K58.1 Irritable bowel syndrome with constipation; B97.89 Other viral agents as the cause of diseases classified elsewhere; N39.0 Urinary tract infection, site not specified; Z86.73 Personal history of transient ischemic attack (TIA), and cerebral infarction without residual deficits; N18.30 Chronic kidney disease, stage 3 unspecified